=== PATIENT | male | born 1970 | race Two or more races ===

== ENCOUNTER 2023-04-14 13:21 | Emergency (ER) | payer BC, SELFPAY ==
[2023-04-14] VITALS (16 sets, daily range): BP systolic 127–149; BP diastolic 71–100; PULSE 97–109; RESP 7–27; TEMP 36.7; O2SAT 94–98; BMI 27.8
[2023-04-14 13:35] LABS: Glucometer 183 mg/dL (74-106)
--- NOTE | 2023-04-14 13:50 | ECG_ITS ---
The [facility] Test Date: 2023-04-14 Pat Name: FLORENCIA COFFEY Department: Room: - Gender: Male [employer]: : 1970 Requested By: [id number] Order Number: [id number] Reading MD: NORBERT RICHARDSON Measurements Intervals [place] Rate: 105 P: 0 SD: 138 QRS: 26 QRSD: 76 T: 60 QT: 316 QTc: 377 Interpretive Statements 1120 Sinus tachycardia 9140 abnormal rhythm ECG Compared to ECG 04/14/2023 13:50:47 No significant changes Electronically Signed On 04-15-2023 7:12:35 EST by NORBERT RICHARDSON
--- NOTE | 2023-04-14 14:28 | ED_ITS ---
HPI - General Adult General Chief complaint: Weakness Stated complaint: BACK PAIN/ GENERAL WEAKNESS Time Seen by Provider: 04/14/23 13:46 Source: patient Mode of arrival: walk-in Limitations: no limitations History of Present Illness HPI narrative: patient's here complaining of pain in his mid thoracic area. He said when he got up to drive to work included a he notes a little bit of aching in that area. While he was driving he got what he calls a dry [place] type feeling a little bit of aching in his jaw. He does have diabetes. He does not have any shortness of breath. He has no palpitations. He does not have any aching in his shoulders and no discomfort in his anterior chest at all. The pain is in the mid thoracic area. He has not had previous back surgery. Symptoms started his morning and he presents to the emergency room approximately 2:00 PM.diet previous cardiac events arrhythmias myocardial infarction or history of coronary artery disease. Related Data Allergies Allergy/AdvReac Type Severity Reaction Status Date / Time No Known Drug Allergies Allergy Verified 04/14/23 13:23 [facility] Social History Smoking status: Never smoker Exam Narrative Exam Narrative: very pleasant awake alert normal cognition and mental status. Vital signs were noted. He moves about comfortably and does not appear to be in any distress. Skin is warm and dry there is no evidence of tissue ischemia to the trunk torso or his limbs. Examination of his back there is no gross kyphoscoliosis. His pain is in the mid thoracic area in the midline not much in the parathoracic musculature. There is no skin lesions abscesses or soft tissue swelling. On auscultation of his lungs are completely clear with no wheezes rales or rhonchi. Heart sounds are normal with no gallop rub or murmur. On range of motion testing he with twisting of his upper torso he does have some reproducible discomfort in the area that he complains of pain. Peripherally no evidence of tissue hypoperfusion. Constitutional Vital Signs, click to edit/add: Last Vital Signs Temp 98.0 F 04/14/23 13:23 Pulse 108 H 04/14/23 13:23 Resp 18 04/14/23 13:23 BP 148/92 H 04/14/23 13:23 Pulse Ox 98 04/14/23 13:23 O2 Del Method Room Air 04/14/23 13:23 Course Vital Signs Vital signs: Vital Signs Temperature 98.0 F 04/14/23 13:23 Pulse Rate 108 H 04/14/23 13:23 Respiratory Rate 18 04/14/23 13:23 Blood Pressure 148/92 H 04/14/23 13:23 Pulse Oximetry 98 04/14/23 13:23 Oxygen Delivery Method Room Air 04/14/23 13:23 Temperature 98.0 F 04/14/23 13:23 Pulse Rate 108 H 04/14/23 13:23 Respiratory Rate 18 04/14/23 13:23 Blood Pressure 148/92 H 04/14/23 13:23 Pulse Oximetry 98 04/14/23 13:23 Oxygen Delivery Method Room Air 04/14/23 13:23 Medical Decision Making MDM Narrative Medical decision making narrative: patient's chest x-ray does not show any widening in the mediastinum or abnormalities. The laboratory testing was benign with negative troponin. His. Minor elevation of his to liver function tests but his alkaline phosphatase and total bilirubin are normal. Again he denies any abdominal discomfort so I don't think this is biliary obstruction. There is no indication he has aneurysm type symptomatology. EKG and cardiac troponin negative. I'd like and follow up with his primary care doctor but I don't believe there is number emergency medical condition today Lab Data Labs: Lab Results 04/14/23 Range/Units 13:31 POC Glucose 183 H (74-106) mg/dL Discharge Plan Discharge Chief Complaint: Weakness Clinical Impression: Acute midline thoracic back pain Patient Disposition: Home, Self-Care Time of Disposition Decision: 15:49 Additional Instructions: if symptoms don't improve follow-up to primary care doctor to consider further diagnostic testing. Stand Alone Forms: Portal Instructions Referrals: SAEID CHAIDEZ [Primary Care Provider] - 1 week
--- NOTE | 2023-04-14 14:30 | XR_ITS ---
The [address] [address] Patient Name: FLORENCIA COFFEY MRN: [id number] date: 1970 Sex: M Assigned Patient Location: ER Current Patient Location: ER Accession/Order Number: [id number] Exam Date: 04/14/2023 14:40 Report Date: 04/14/2023 15:06 At the request of: MAO SHEETS Procedure: XR chest 2V EXAMINATION: XR chest 2V HISTORY: pain , back pain with deep inspiration, nausea COMPARISON: XR chest 08/11/2022 FINDINGS: LUNGS: No significant pulmonary parenchymal abnormalities. VASCULATURE: No increased pulmonary vasculature. PLEURA: No pneumothorax, effusion, or pleural thickening. CARDIAC: No cardiomegaly or cardiac silhouette abnormality. MEDIASTINUM: No visible mass or adenopathy. BONES: No fracture or visible bone lesion. OTHER: Negative. XR/XR chest 2V IMPRESSION: 1. No acute or suspicious findings to account for patient's symptoms. Electronically authenticated by: RIVERA LARRY Date: 04/14/2023 15:06
[2023-04-14 14:36] LABS: Basophils Percent Auto 0.4 % (0.2-2.0); Eosinophils Absolute Auto 0.1 10^3/uL (0.0-0.7); Eosinophils Percent Auto 1.2 % (0.9-7.0); Hematocrit 55.1 % (42.0-54.0); Hemoglobin 19.9 g/dL (14.0-18.0); Immature Granulocytes Abs Auto 0.04 10^3/uL (0.00-0.03); Immature Granulocytes Pct Auto 0.5 % (0.0-0.5); Lymphocytes Absolute Auto 1.9 10^3/uL (1.2-3.8); Lymphocytes Percent Auto 23.5 % (20.5-60.0); Mean Corpuscular HGB Conc 36.1 g/dL (29.9-35.2); Mean Corpuscular Hemoglobin 29.9 pg (25.9-34.0); Mean Corpuscular Volume 82.7 fL (80.0-94.0); Mean Platelet Volume 10.6 fL (9.5-13.5); Monocytes Absolute Auto 0.5 10^3/uL (0.3-0.8); Monocytes Percent Auto 6.1 % (1.7-12.0); Neutrophils Absolute Auto 5.6 10^3/uL (1.4-6.5); Neutrophils Percent Auto 68.3 % (43.0-75.0); Platelet Count 163 10^3/uL (150-450); Red Blood Count 6.66 10^6/uL (4.70-6.10); Red Cell Distribution Width 12.7 % (11.0-15.0); White Blood Count 8.2 10^3/uL (4.0-11.0)
[2023-04-14 15:00] LABS: Alanine Aminotransferase 96 U/L (16-63); Albumin Level 4.3 g/dL (3.4-5.0); Alkaline Phosphatase 82 U/L (46-116); Anion Gap 15.7; Aspartate Amino Transferase 46 U/L (15-37); BUN Creatinine Ratio 13.4; Bilirubin Total 0.7 mg/dL (0.2-1.0); Calcium 9.5 mg/dL (8.5-10.1); Chloride 101 mmol/L (98-107); Estimated GFR (African America >60 (>=60); Estimated GFR (Non-African Ame >60 (>=60); Globulin 4.4 g/dL; Glucose 172 mg/dL (74-106); Potassium 3.7 mmol/L (3.5-5.1); Sodium 139 mmol/L (136-145); Total Protein 8.7 g/dL (6.4-8.2)
== END 2023-04-14 15:57 | disposition home or self-care (01) ==
PROVIDERS: Emergency Provider Emergency Medicine Emergency Medical Services; PCP Family Medicine
DX: M54.6 Pain in thoracic spine (principal); K42.9 Umbilical hernia without obstruction or gangrene; E11.9 Type 2 diabetes mellitus without complications
CPT/HCPCS: 36415; 71046; 80053; 83880; 84484; 85025; 93005; 99284

== ENCOUNTER 2023-11-18 16:10 | Emergency (ER) | payer BC, SELFPAY ==
[2023-11-18 16:19] VITALS: BP 155/99; PULSE 88; TEMP 36.6; O2SAT 97; BMI 32.9
--- NOTE | 2023-11-18 16:28 | XR_ITS ---
The [address] [address] Patient Name: FLORENCIA COFFEY MRN: [id number] date: 1970 Sex: M Assigned Patient Location: ER Current Patient Location: ER Accession/Order Number: [id number] Exam Date: 11/18/2023 16:35 Report Date: 11/18/2023 17:12 At the request of: SHAN CHAUDHARI Procedure: XR ribs LT min 3V w CXR1V Ribs EXAM: XR ribs LT min 3V w CXR1V HISTORY: Fall COMPARISON: None. TECHNIQUE: Chest, single view. Left rib series with 7 images obtained. FINDINGS: Lungs/pleura: No consolidation, effusion, or pneumothorax. Bones: No acute abnormality identified. XR/XR ribs LT min 3V w CXR1V IMPRESSION: No acute displaced rib fracture. No acute process. Electronically authenticated by: LAST GARNICA Date: 11/18/2023 17:12
--- NOTE | 2023-11-18 16:28 | ED_ITS ---
HPI HPI - General Adult General Chief complaint: Fall Stated complaint: RIB PAIN Time Seen by Provider: 11/18/23 16:18 Source: patient Mode of arrival: walk-in History of Present Illness HPI narrative: Patient is a 52-year-old male who presents to the emergency department for an injury 3 days ago. He states he slept and fell on his left posterior ribs. He complains of continued pain to the area. He is not anticoagulated. He denies any injury to the head and has no persistent neck, low back pain. He is ambulatory and drove himself to the ER. He states he takes Percocet at home daily. He is concerned by the persistent pain and wanted to be evaluated for x- rays. Related Data Previous Rx's ?Medication ?Instructions ?Recorded ketorolac 10 mg tablet 10 mg PO TID PRN pain #10 tabs 11/18/23 methocarbamol 750 mg tablet 750 mg PO TID PRN pain #20 tabs 11/18/23 Allergies Allergy/AdvReac Type Severity Reaction Status Date / Time No Known Drug Allergies Allergy Verified 04/14/23 13:23 Opioid HPI Opioid Management Most Recent Opioid Data: Last Pain Scale 5 11/18/23 16:41 Review of Systems ROS Constitutional Denies: fever or chills Ears, nose, mouth, and throat Denies: throat pain or nasal congestion Respiratory Reports: pain on inspiration; Denies: shortness of breath Gastrointestinal Denies: nausea or vomiting Musculoskeletal Reports: back pain; Denies: neck pain Integumentary/Breast Denies: rash Hematologic/Lymphatic Denies: easy bruising or easy bleeding PFSH PFSH Social History Smoking status: Never smoker Exam Narrative Exam Narrative: Gen.: Awake, alert, in no distress Head: Normocephalic, atraumatic ENT: Moist mucous membranes Respiratory: No respiratory distress, lungs clear bilaterally; No ecchymosis, flail chest or bony point tenderness noted. Diffuse mild tenderness of the left posterior ribs inferiorly Cardio: Regular rate and rhythm Gastrointestinal: Abdomen is soft, nondistended and nontender to palpation Extremities: Moves extremities equally Psych: Normal mood and affect Neuro: No focal neuro deficit Skin: Warm, dry, intact Constitutional Vital Signs, click to edit/add: Last Vital Signs Temp 98 F 11/18/23 16:19 Pulse 88 11/18/23 16:19 Resp 18 11/18/23 16:19 BP 155/99 H 11/18/23 16:19 Pulse Ox 97 11/18/23 16:19 O2 Del Method Room Air 11/18/23 16:19 Course Vital Signs Vital signs: Vital Signs Temperature 98 F 11/18/23 16:19 Pulse Rate 88 11/18/23 16:19 Respiratory Rate 18 11/18/23 16:19 Blood Pressure 155/99 H 11/18/23 16:19 Pulse Oximetry 97 11/18/23 16:19 Oxygen Delivery Method Room Air 11/18/23 16:19 Temperature 98 F 11/18/23 16:19 Pulse Rate 88 11/18/23 16:19 Respiratory Rate 18 11/18/23 16:19 Blood Pressure 155/99 H 11/18/23 16:19 Pulse Oximetry 97 11/18/23 16:19 Oxygen Delivery Method Room Air 11/18/23 16:19 Medical Decision Making MDM Narrative Medical decision making narrative: X-rays of the ribs with no evidence of lung or rib abnormality. Patient treated with Toradol in the ER. He was given NSAIDs and muscle relaxant for home. Follow-up with PCP. He is hemodynamically stable with no respiratory distress at discharge. Follow-up PCP and return to the ER if symptoms change or worsen SHARED APC VISIT, PHYSICIAN ATTESTATION: [id number] I performed a substantive part of the MDM during the patient?s E/M visit. I personally evaluated and examined the patient. I personally made or approved the documented management plan and acknowledge its risk of complications. Medical Records Medical records reviewed: Yes I reviewed the patient's medical records Imaging Data Chest x-ray: Attestation: I have reviewed the pertinent imaging results. Radiologist's impression: ITS Impressions Ribs X-Ray 11/18/23 16:28 IMPRESSION: No acute displaced rib fracture. No acute process. Electronically authenticated by: LAST GARNICA Date: 11/18/2023 17:12 Discharge Plan Discharge Stand Alone Forms: Portal Instructions Chief Complaint: Fall Clinical Impression: Chest wall contusion, Acute chest wall pain Patient Disposition: Home, Self-Care Time of Disposition Decision: 17:23 Condition: Good Prescriptions / Home Meds: New ketorolac 10 mg tablet 10 mg PO TID PRN (Reason: pain) Qty: 10 0RF methocarbamol 750 mg tablet 750 mg PO TID PRN (Reason: pain) Qty: 20 0RF Print Language: Korean Instructions: Chest Wall Pain (ED), Rib Contusion (ED) Referrals: SAEID CHAIDEZ [Primary Care Provider] - 1 week
[2023-11-18] MEDS: KETOROLAC TROMETHAMINE 10 MG TABLET PO (16:33)
[2023-11-18 17:31] VITALS: BP 140/89; PULSE 75; O2SAT 98
== END 2023-11-18 17:33 | disposition home or self-care (01) ==
PROVIDERS: Emergency Provider Emergency Medicine; PCP Family Medicine
DX: S20.212A Contusion of left front wall of thorax, initial encounter (principal); R07.89 Other chest pain; W01.0XXA Fall on same level from slipping, tripping and stumbling without subsequent striking against object, initial encounter
CPT/HCPCS: 71101; 99283

== ENCOUNTER 2024-06-08 20:12 | Emergency (ER) | payer BC, SELFPAY ==
[2024-06-08] VITALS (16 sets, daily range): BP systolic 127–158; BP diastolic 83–108; PULSE 98–118; TEMP 36.8; O2SAT 98; BMI 34.5
--- OUTSIDE RECORDS SUMMARY | 2024-06-08 20:18 | XMS_ITS | CCD ---
Author Organization [facility] Care Team Providers Care Racing Car Driver Name Role Phone DR SAEID PARKER Primary Care Unavailable AUGUSTINA .PARRISH Admitting Unavailable AUGUSTINA ., PARRISH Consulting Unavailable AUGUSTINA Byrnes, PARRISH Attending Unavailable CHRISTIN SEBASTIAN Consulting Unavailable NIKKI MCINTOSH Consulting Unavailable DAYNA WHITMAN Attending Unavailable SAEID PARKER Referring Unavailable SAEID PARKER Primary Care Unavailable DAYNA WHITMAN Attending Unavailable SAEID PARKER Referring Unavailable SAEID PARKER Primary Care Unavailable Saeid Parker MD Primary Care Provider SAEID PARKER Referring Unavailable KAYLYNN SAEID A Primary Care Unavailable MANDI JOHNSON Admitting Unavailable MANDI JOHNSON Attending Unavailable SAEID PARKER A Primary Care Unavailable MANDI JOHNSON Attending Unavailable MANDI JOHNSON Referring Unavailable KAYLYNN, SAEID A Primary Care Unavailable ALBER ESCOBAR Attending Unavailable KAYLYNN SAEID A Primary Care Unavailable SAEID PARKER Referring Unavailable KAYLYNN SAEID A Primary Care Unavailable MANDI JOHNSON Admitting Unavailable MANDI JOHNSON Attending Unavailable KAYLYNN, SAEID A Primary Care Unavailable PARKER, SAEID A Referring Unavailable KAYLYNN SAEID A Primary Care Unavailable Medications Current Medications Medication Drug Class(es) Dates Sig (Normalized) Sig (Original) acetaminophen 325 mg / oxyCODONE hydrochloride 7.5 mg oral tablet (2 sources) Opioid Agonist take 1 tablet by mouth once in the morning oxyCODONE-acetamin ophen (PERCOCET) 7.5-325 mg per tablet Take 1 tablet by mouth in the morning and 1 tablet before bedtime. Active diazePAM 5 mg oral tablet (2 sources) Benzodiazepine take 1 tablet by mouth in the morning, then take 1 tablet by mouth at bedtime diazePAM (VALIUM) 5 mg tablet Take 1 tablet (5 mg total) by mouth in the morning and 1 tablet (5 mg total) before bedtime. Active fexofenadine hydrochloride 180 mg oral tablet (2 sources) Histamine-1 Receptor Antagonist take 1 tablet by mouth in the morning fexofenadine (AMANDO) 180 mg tablet Take 1 tablet (180 mg total) by mouth in the morning. Active fluticasone propionate 0.05 mg/actuat metered dose nasal spray (2 sources) Corticosteroid take 1 spray(s) nasal route in the morning fluticasone propionate (FLONASE) 50 mcg/actuation nasal spray Administer 1 spray into each nostril in the morning. Active gabapentin 300 mg oral capsule (2 sources) Anti-epileptic Agent take 1 capsule by mouth three times daily gabapentin (NEURONTIN) 300 mg capsule Take 1 capsule (300 mg total) by mouth 3 (three) times a day. Active glipiZIDE 5 mg oral tablet (2 sources) Sulfonylurea take 1 tablet by mouth in the morning glipiZIDE (GLUCOTROL) 5 mg tablet Take 1 tablet (5 mg total) by mouth in the morning. Active lisinopril 10 mg oral tablet (2 sources) Angiotensin Converting Enzyme Inhibitor Start: 01-09-2024 take 1 tablet by mouth in the morning lisinopriL (PRINIVIL,ZESTRIL) 10 mg tablet Take 1 tablet (10 mg total) by mouth in the morning. 01/09/2024 Active omeprazole 40 mg delayed release oral capsule (2 sources) Proton Pump Inhibitor take 1 capsule by mouth in the morning omeprazole (PriLOSEC) 40 mg capsule Take 1 capsule (40 mg total) by mouth in the morning. Active promethazine hydrochloride 25 mg rectal suppository (2 sources) Phenothiazine take 25 mg rectal route every six hours as needed for nausea and vomiting promethazine (PHENERGAN) 25 mg suppository Insert 1 suppository (25 mg total) into the rectum every 6 (six) hours as needed for nausea or vomiting. Active semaglutide (OZEMPIC) 0.25 mg or 0.5 mg (2 mg/3 mL) pen injector (2 sources) semaglutide (OZEMPIC) 0.25 mg or 0.5 mg (2 mg/3 mL) pen injector Inject 0.5 mg under the skin every 7 days. tuesdays Active sertraline 50 mg oral tablet (2 sources) Serotonin Reuptake Inhibitor take 1.5 tablets by mouth in the morning sertraline (ZOLOFT) 50 mg tablet Take 1.5 tablets (75 mg total) by mouth in the morning. Active sod sulf-pot chloride-mag sulf 1.479-0.188- 0.225 gram tablet (1 source) Start: 01-29-2024 sod sulf-pot chloride-mag sulf 1.479-0.188- 0.225 gram tablet Indications: Encounter for screening colonoscopy Please see instructional sheet given by physicians office. 24 tablet 01/29/2024 Active tiZANidine 4 mg oral tablet (2 sources) Central alpha-2 Adrenergic Agonist take 1 tablet by mouth every six hours as needed tiZANidine (ZANAFLEX) 4 mg tablet Take 1 tablet (4 mg total) by mouth every 6 (six) hours as needed for muscle spasms. Active zolpidem tartrate 12.5 mg extended release oral tablet (2 sources) gamma-Aminobutyric Acid-ergic Agonist take 1 tablet by mouth once daily as needed for sleep zolpidem CR (AMBIEN CR) 12.5 mg CR tablet Take 1 tablet (12.5 mg total) by mouth nightly as needed for sleep. Active Problems Active Problems Problem Classification Problem Date Documented Da te Episodic/Chronic Diabetes mellitus with complications (1 source) Type 2 diabetes mellitus with hyperglycemia; 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: [Type 2 diabetes mellitus with hyperglycemia] Onset: 05-07-2024 Chronic Diabetes mellitus without complication (1 source) Type 2 diabetes mellitus without complications; 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: [TYPE 2 DM WITHOUT COMPLICATIONS] Onset: 08-13-2022 Chronic Headache; including migraine (4 sources) Headache; including migraine; 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: [HEADACHE UNSPECIFIED] Onset: 08-11-2022 Mood disorders (1 source) Mood disorders; 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: [DEPRESSION UNSPECIFIED] Onset: 08-13-2022 Other aftercare (1 source) 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; 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: [OTH PRISON CURRENT DRUG THERAPY] Onset: 08-13-2022 Episodic Other aftercare (1 source) 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; 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: [CHRONIC MANAGER USE ORAL HYPOGLYCEMIC DX] Onset: 08-13-2022 Episodic Other and unspecified benign neoplasm (1 source) Benign neoplasm of sigmoid colon; 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: [Benign neoplasm of sigmoid colon] Onset: 03-15-2024 Episodic Other connective tissue disease (1 source) Arthrodesis status; 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: [ARTHRODESIS STATUS] Onset: 08-13-2022 Episodic Other lower respiratory disease (1 source) Shortness of breath; 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: [SHORTNESS OF BREATH] Onset: 08-13-2022 Episodic Other screening for suspected conditions (not mental disorders or infectious disease) (3 sources) Encounter for screening for malignant neoplasm of colon; 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: [Encounter for screening for malignant neoplasm of prostate] Onset: 12-02-2023 Episodic Other upper respiratory infections (1 source) Chronic sinusitis, unspecified; 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: [CHRONIC SINUSITIS UNSPECIFIED] Onset: 08-13-2022 Chronic Other upper respiratory infections (1 source) Acute sinusitis, unspecified; 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: [ACUTE SINUSITIS UNSPECIFIED] Onset: 08-13-2022 Episodic Residual codes; unclassified (1 source) Acquired absence of other specified parts of digestive tract; 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: [ACQ ABSENCE OTH PART DIGESTV TRACT] Onset: 08-13-2022 Episodic Unclassified (1 source) CONTACT W/AND (SUSP) EXPOS COVID-19; 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: [CONTACT W/AND (SUSP) EXPOS COVID-19] Onset: 08-13-2022 Unclassified (1 source) Colon Cancer Screening Onset: 12-02-2023 Unclassified (1 source) screening Onset: 12-08-2023 Past or Other Problems Problem Classification Problem Date Documented Da te Episodic/Chronic Other and unspecified benign neoplasm (1 source) Benign neoplasm of transverse colon; 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: [Benign neoplasm of transverse colon] Onset: 12-08-2023 Episodic Results Test Name Value Interpretation Reference Range Facility CBC AND AUTO DIFFon 05-07-20 24 ABSOLUTE BASOPHIL 0.1 X10E9/L Normal 0.0-0.2 [facility] Comment on above: Performed By: #### C BCA, 2857-1, CMP, 70769-2 #### [facility] ([id number]) [address], [address] [place] [address] ABSOLUTE NEUTROPHIL 4.8 X10E9/L Normal 1.5-6.6 [facility] Comment on above: Performed By: #### C BCA, 2857-1, CMP, 83953-1 #### [facility] ([id number]) [address], [address] [place] [address] Basophils/100 WBC (Bld) 0.9 % Normal [facility] Comment on above: Performed By: #### C BCA, 2857-1, CMP, 67159-2 #### [facility] ([id number]) [address], [address] [place] [address] Eosinophils (Bld) [#/Vol] 0.3 10*3/uL Normal 0.0-0.4 [facility] Comment on above: Performed By: #### C BCA, 2857-1, CMP, 83135-3 #### [facility] ([id number]) [address], [address] [place] [address] Eosinophils/100 WBC (Bld) 3.6 % Normal [facility] Comment on above: Performed By: #### Maggie BCA, 2857-1, CMP, 76710-5 #### [facility] ([id number]) [address], [address] [place] [address] Erythrocyte distribution width (RBC) [Ratio] 13.3 % Normal 11.5-15.0 [facility] Comment on above: Performed By: #### Maggie BCA, 2857-1, CMP, 75651-6 #### [facility] ([id number]) [address], [address] [place] [address] Hematocrit (Bld) [Volume fraction] 51.4 % High 39-49 [facility] Comment on above: Performed By: #### C BCA, 2857-1, CMP, 96152-8 #### [facility] ([id number]) [address], [address] [place] [address] Hemoglobin (Bld) [Mass/Vol] 18.1 g/dL High 13.0-17.0 [facility] Comment on above: Performed By: #### C BCA, 2857-1, CMP, 09174-6 #### [facility] ([id number]) [address], [address] [place] [address] Lymphocytes (Bld) [#/Vol] 2.3 10*3/uL Normal 1.0-3.5 [facility] Comment on above: Performed By: #### C MICHAEL, 2857-1, CMP, 09710-7 #### [facility] ([id number]) [address], [address] [place] [address] Lymphocytes/100 WBC (Bld) 29.1 % Normal [facility] Comment on above: Performed By: #### Maggie RODRIGUEZ, 2857-1, CMP, 30379-6 #### [facility] ([id number]) [address], [address] [place] [address] MCH (RBC) [Entitic mass] 29.8 pg Normal 27-34 [facility] Comment on above: Performed By: #### Maggie RODRIGUEZ, 2857-1, CMP, 15171-8 #### [facility] ([id number]) [address], [address] [place] [address] MCHC (RBC) [Mass/Vol] 35.3 g/dL Normal 32-36 [facility] Comment on above: Performed By: #### C BCA, 2857-1, CMP, 10912-9 #### [facility] ([id number]) [address], [address] [place] [address] MCV (RBC) [Entitic vol] 85 fL Normal 80-100 [facility] Comment on above: Performed By: #### Maggie BCA, 2857-1, CMP, 15006-3 #### [facility] ([id number]) [address], [address] [place] [address] Monocytes (Bld) [#/Vol] 0.4 10*3/uL Normal 0-0.9 [facility] Comment on above: Performed By: #### Maggie BCA, 2857-1, CMP, 51911-0 #### [facility] ([id number]) [address], [address] [place] [address] Monocytes/100 WBC (Bld) 4.9 % Normal [facility] Comment on above: Performed By: #### Maggie BCA, 2857-1, CMP, 96706-2 #### [facility] ([id number]) [address], [address] [place] [address] Neutrophils/100 WBC (Bld) 61.5 % Normal [facility] Comment on above: Performed By: #### Maggie BCA, 2857-1, CMP, 27844-4 #### [facility] ([id number]) [address], [address] [place] [address] Platelet mean volume (Bld) [Entitic vol] 8.6 fL Normal 7-12 [facility] Comment on above: Performed By: #### Maggie BCA, 2857-1, CMP, 83330-6 #### [facility] ([id number]) [address], [address] [place] [address] Platelets (Bld) [#/Vol] 230 10*3/uL Normal 150-450 [facility] Comment on above: Performed By: #### Maggie BCA, 2857-1, CMP, 23729-1 #### [facility] ([id number]) [address], [address] [place] [address] RBC COUNT 6.08 X10E12/L High 4.10-5.70 [facility] Comment on above: Performed By: #### Maggie BCA, 2857-1, CMP, 68145-9 #### [facility] ([id number]) [address], [address] [place] [address] WBC (Bld) [#/Vol] 7.8 10*3/uL Normal 4.0-11.0 [facility] Comment on above: Performed By: #### C BCA, 2857-1, CMP, 90044-9 #### [facility] ([id number]) [address], [address] [place] [address] COMPREHENSIVE METABOLIC PANE Dc 05-07-2024 Albumin [Mass/Vol] 4.2 g/dL Normal 3.2-5.3 [facility] Comment on above: Performed By: #### C BCA, 2857-1, CMP, 36101-6 #### [facility] ([id number]) [address], [address] [place] [address] ALP [Catalytic activity/Vol] 66 U/L Normal 39-130 [facility] Comment on above: Performed By: #### C BCA, 2857-1, CMP, 09692-5 #### [facility] ([id number]) [address], [address] [place] [address] ALT [Catalytic activity/Vol] 68 U/L High 0-40 [facility] Comment on above: Performed By: #### C BCA, 2857-1, CMP, 81923-7 #### [facility] ([id number]) [address], [address] [place] [address] Anion gap [Moles/Vol] 10 mmol/L Normal 5-15 [facility] Comment on above: Performed By: #### C BCA, 2857-1, CMP, 91478-0 #### [facility] ([id number]) [address], [address] [place] [address] AST [Catalytic activity/Vol] 36 U/L Normal 0-41 [facility] Comment on above: Performed By: #### C BCA, 2857-1, CMP, 78509-0 #### [facility] ([id number]) [address], [address] [place] [address] Bilirubin [Mass/Vol] 0.7 mg/dL Normal 0.3-1.2 [facility] Comment on above: Performed By: #### C BCA, 2857-1, CMP, 48748-2 #### [facility] ([id number]) [address], [address] [place] [address] Calcium [Mass/Vol] 9.4 mg/dL Normal 8.5-10.5 [facility] Comment on above: Performed By: #### C BCA, 2857-1, CMP, 20222-4 #### [facility] ([id number]) [address], [address] [place] [address] Chloride [Moles/Vol] 103 mmol/L Normal 98-109 [facility] Comment on above: Performed By: #### C BCA, 2857-1, CMP, 41267-1 #### [facility] ([id number]) [address], [address] [place] [address] CO2 [Moles/Vol] 27 mmol/L Normal 22-32 [facility] Comment on above: Performed By: #### C BCA, 2857-1, CMP, 67300-9 #### [facility] ([id number]) [address], [address] [place] [address] Creatinine [Mass/Vol] 0.76 mg/dL Normal 0.60-1.30 [facility] Comment on above: Result Comment: METH OD TRACEABLE TO IDMS STANDARD Performed By: #### C BCA, 2857-1, CMP, 29304-9 #### [facility] ([id number]) [address], [address] [place] [address] eGFR (CKD-EPI) NON-RACE DEPENDENT >90 Normal >59 [facility] Comment on above: Result Comment: Reported eGFR is based on the CKD-EPI 2020 equation that does not use a race coefficient. Performed By: #### C BCA, 2857-1, CMP, 28229-6 #### [facility] ([id number]) [address], [address] [place] [address] Glucose [Mass/Vol] 140 mg/dL High 65-99 [facility] Comment on above: Performed By: #### C BCA, 2857-1, CMP, 39367-7 #### [facility] ([id number]) [address], [address] [place] [address] Potassium [Moles/Vol] 3.8 mmol/L Normal 3.5-5.0 [facility] Comment on above: Performed By: #### C BCA, 2857-1, CMP, 96793-6 #### [facility] ([id number]) [address], [address] [place] [address] Protein [Mass/Vol] 7.2 g/dL Normal 6.0-8.0 [facility] Comment on above: Performed By: #### C BCA, 2857-1, CMP, 06246-9 #### [facility] ([id number]) [address], [address] [place] [address] Sodium [Moles/Vol] 140 mmol/L Normal 134-146 [facility] Comment on above: Performed By: #### C BCA, 2857-1, CMP, 21367-3 #### [facility] ([id number]) [address], [address] [place] [address] Urea nitrogen [Mass/Vol] 10 mg/dL Normal 5-23 [facility] Comment on above: Performed By: #### C BCA, 2857-1, CMP, 89278-8 #### [facility] ([id number]) [address], [address] [place] [address] Lipid 1996 panelon 4 Cholesterol [Mass/Vol] 163 mg/dL Normal 150-200 [facility] Comment on above: Performed By: #### Maggie RODRIGUEZ, 2857-1, CMP, 83106-1 #### [facility] ([id number]) [address], [address] [place] [address] Cholesterol in HDL [Mass/Vol] 32 mg/dL Low >39 [facility] Comment on above: Result Comment: HDL <40 mg/dL - High Risk HDL > or = 40mg/dL- Desirable HDL >60 mg/dL - Negative Risk Performed By: #### Maggie RODRIGUEZ, 2857-1, CMP, 89870-8 #### [facility] ([id number]) [address], [address] [place] [address] Cholesterol in LDL [Mass/Vol] 91 mg/dL Normal <130 [facility] Comment on above: Result Comment: LDL <100 mg/dL - Desirable LDL >160 mg/dL - High Risk Performed By: #### Maggie BCA, 2857-1, CMP, 09978-8 #### [facility] ([id number]) [address], [address] [place] [address] Cholesterol in VLDL [Mass/Vol] 40 mg/dL High 0-30 [facility] Comment on above: Performed By: #### Maggie BCA, 2857-1, CMP, 89899-9 #### [facility] ([id number]) [address], [address] [place] [address] CHOLESTEROL:HDL 5.1 High 1.0-5.0 [facility] Comment on above: Performed By: ###Ray Serrano BCA, 2857-1, CMP, 04667-0 #### [facility] ([id number]) [address], [address] [place] [address] Triglyceride [Mass/Vol] 199 mg/dL High 27-150 [facility] Comment on above: Performed By: #### C BCA, 2857-1, CMP, 17147-5 #### [facility] ([id number]) [address], [address] [place] [address] MICROALBUMIN - ALBUMIN:CREAT ININE URINE RATIOon 05-07-2024 ALB/CREAT RATIO 6.8 mg/g creat Normal 0.0-30.0 [facility] Comment on above: Performed By: #### M ALBU #### [facility] ([id number]) [address], [address] [place] [address] Albumin DL <= 20 mg/L (U) [Mass/Vol] 1.4 mg/dL Normal 0.0-1.9 [facility] Comment on above: Performed By: #### M ALBU #### [facility] ([id number]) [address], [address] [place] [address] URINE CREAT 206.05 mg/dL Normal [facility] Comment on above: Performed By: #### M ALBU #### [facility] ([id number]) [address], [address] [place] [address] Prostate specific Ag [Mass/V ol]on 05-07-2024 PSA SCREEN 2.26 ng/mL Normal 0.00-4.00 [facility] Comment on above: Result Comment: The method used for this test is Leon [place] DXI chemiluminescent immunoassay. Values obtained by different assay methods cannot be used interchangeably. Performed By: #### C BCA, 2857-1, CMP, 67856-4 #### [facility] ([id number]) [address], [address] [place] [address] Surgical Pathologyon 024 Surgical Pathology Normal [facility] Comment on above: Result Comment: [facility] [address] [place] [address] Surgical Pathology Consultation Patient Name:BERTA COFFEY:1970 (Age: 53)Gender:MTaken:4Reported:03/18/2024hysician(s):Mandi Johnson D.O. ([phone])Copy To: Rec. #:[id number]: #[id number] Final Pathologic Diagnosis Distal sigmoid colon polyp, biopsy: Tubular adenoma. Report Electronically Signed Out nxk/03/18/2024Ranjith Lopez MD Interpretation performed at [facility], [address] [place] [address], License number: [id number]. Clinical History Screening. 1. Cold snared a polyp in the distal sigmoid colon. Gross Description Received in formalin labeled ALEXX, distal sigmoid polyp is a pale-abdalla delicate soft tissue bit, 0.5 cm in greatest dimension. The specimen is filtered and submitted the single cassette. (1,ns,[id number], m4) TB tgb/03/16/2024GR Specimen(s) Received Distal sigmoid colon polyp Fee Codes(s): 1; 35868 Surgical Pathologyon 024 Surgical Pathology Normal [facility] Comment on above: Result Comment: [facility] [address] [place] [address] Surgical Pathology Consultation Patient Name:BERTA COFFEY:1970 (Age: 53)Gender:MTaken:12/08/2023eported:12/10/2023hysician(s):Mandi Johnson D.O. ([phone])Copy To: Rec. #:[id number]: #[id number] Final Pathologic Diagnosis Transverse colon, polypectomy: Tubular adenoma. Report Electronically Signed Out rg/12/10/2023husam Peng MD Interpretation performed at [facility], [address] [place] [address], License number: [id number]. Clinical History Screening. Gross Description Received in formalin labeled ALEXX, transverse is a pale-abdalla delicate soft tissue fragment, 0.5 cm in greatest dimension. The specimens are filtered and submitted in a single cassette. (1,ns,[id number], m4) TB tgb/12/09/2023O Specimen(s) Received Transverse colon biopsy Fee Codes(s): 1; 23902 ACETONE SERUMon 08-11-2022 ACETONE Negative Normal NEGATIVE [facility] Comment on above: Performed By: #### A CETON #### [facility] [address] [address] [address] Kirsten Harding BNPon 08-11-2022 Natriuretic peptide B (Bld) [Mass/Vol] 15.0 pg/mL Normal <=900.0 [facility] Comment on above: Performed By: #### C MP, BNP, CMADM #### [facility] [address] [address] [address] Kirsten Harding CARDIAC VERITO ADMITon 023 CK [Catalytic activity/Vol] 124 U/L Normal 39-308 [facility] Comment on above: Performed By: #### C MP, BNP, CMADM ####[facility] [address] [address]Dr. Kirsten Harding CK.MB [Mass/Vol] 1.12 ng/mL Normal <=3.60 [facility] Comment on above: Performed By: #### C MP, BNP, CMADM ####[facility] [address] [address]Dr[address] Kirsten Harding HSTROP 5.0 pg/mL Normal 4.0-76.1 [facility] Comment on above: Result Comment: CUT- OFF POINTS HAVE BEEN ESTABLISHED BASED ON THE FOURTH UNIVERSAL DEFINITIONS OF MYOCARDIAL INFARCTION. THE UPPER REFERENCE LIMIT (URL) OF TROPONIN, DEFINED THE 99TH PERCENTILE OF cTnI DISTRIBUTION IN A REFERENCE POPULATION, HAS BEEN CONFIRMED THE DECISION THRESHOLD FOR TX DIAGNOSIS. Performed By: #### C MP, BNP, CMADM ####[facility] [address] [address]Dr. Kirsten Harding CHRISTEL 28 ng/mL Normal 16-96 [facility] Comment on above: Performed By: #### C MP, BNP, CMADM ####[facility] [address] [place], [place] [address]DxDr. Kirsten Harding CBC AUTO DIFFon 08-11-2022 BASO # 0.1 103/ul Normal 0.0-0.1 [facility] Comment on above: Performed By: #### C BC #### [facility] [address] [address] [address] Kirsten Harding Basophils/100 WBC (Bld) 0.6 % Normal 0.2-2.0 [facility] Comment on above: Performed By: #### C BC #### [facility] [address] [address] [address] Kirsten Harding EO # 0.3 103/ul Normal 0.0-0.7 [facility] Comment on above: Performed By: #### C BC #### [facility] [address] [address] [address] Kirsten Harding Eosinophils/100 WBC (Bld) 2.6 % Normal 0.9-7.0 [facility] Comment on above: Performed By: #### C BC #### [facility] [address] [address] [address] Kirsten Harding Erythrocyte distribution width (RBC) [Ratio] 12.4 % Normal 11.0-15.0 [facility] Comment on above: Performed By: #### C BC #### [facility] [address] [address] [address] iKrsten Harding Hematocrit (Bld) [Volume fraction] 50.7 % Normal 42.0-54.0 [facility] Comment on above: Performed By: #### C BC #### [facility] [address] [address] [address] Kirsten Harding Hemoglobin (Bld) [Mass/Vol] 18.6 g/dL Critically high 14.0-18.0 [facility] Comment on above: Performed By: #### C BC #### [facility] [address] [address] [address] Kirsten Harding IG # 0.05 10e3/ul Critically high 0.00-0.03 [facility] Comment on above: Performed By: #### C BC #### [facility] [address] [address] [address] Kirsten Harding IG % 0.5 % Normal 0.0-0.5 [facility] Comment on above: Performed By: #### C BC #### [facility] [address] [place] [address] Dr. Kirsten Harding LYMPH # 3.5 103/ul Normal 1.2-3.8 [facility] [facility] Comment on above: Performed By: #### C BC #### [facility] [address] [place] [address] Dr. Kirsten Harding Lymphocytes/100 WBC (Bld) 33.7 % Normal 20.5-60.0 [facility] Comment on above: Performed By: #### C BC #### [facility] [address] [place] [address] Dr. Kirsten Harding MANUAL DIFF REQ NO Normal [facility] Comment on above: Performed By: #### C BC #### [facility] [address] [place] [address] Dr. Kirsten Harding MCH (RBC) [Entitic mass] 29.7 pg Normal 25.9-34.0 [facility] Comment on above: Performed By: #### C BC #### [facility] [address] [place] [address] Dr. Kirsten Harding MCHC (RBC) [Mass/Vol] 36.7 g/dL Critically high 29.9-35.2 [facility] Comment on above: Performed By: #### C BC #### [facility] [address] [place] [address] Dr. Kirsten Harding MCV (RBC) [Entitic vol] 81.0 fL Normal 80.0-94.0 [facility] Comment on above: Performed By: #### C BC #### [facility] [address] [address] [address] Kirsten Harding MONO # 0.7 103/ul Normal 0.3-0.8 [facility] Comment on above: Performed By: #### C BC #### [facility] [address] [place] [address] Dr. Kirsten Harding Monocytes/100 WBC (Bld) 6.4 % Normal 1.7-12.0 [facility] Comment on above: Performed By: #### C BC #### [facility] [address] [place] [address] Dr. Kirsten Harding NEUT # 5.8 103/ul Normal 1.4-6.5 [facility] Comment on above: Performed By: #### C BC #### [facility] [address] [place] [address] Dr. Kirsten Harding Neutrophils/100 WBC (Bld) 56.2 % Normal 43.0-75.0 [facility] Comment on above: Performed By: #### C BC #### [facility] [address] [place] [address] Dr. Kirsten Harding Platelet mean volume (Bld) [Entitic vol] 10.4 fL Normal 9.5-13.5 [facility] Comment on above: Performed By: #### C BC #### [facility] [address] [place] [address] Dr. Kirsten Harding PLT 184 103/ul Normal 150-450 [facility] Comment on above: Performed By: #### C BC #### [facility] [address] [place] [address] Dr. Kirsten Harding RBC 6.26 106/ul Critically high 4.70-6.10 [facility] Comment on above: Performed By: #### C BC #### [facility] [address] [place] [address] Dr. Kirsten Harding WBC 10.3 103/ul Normal 4.0-11.0 [facility] Comment on above: Performed By: #### C BC #### [facility] [address] [place] [address] STROKE HEAD WOon 03-26-[address] STROKE HEAD WO EXAM: CT STROKE HEAD WO CLINICAL INDICATION: Headache COMPARISON: None TECHNIQUE: Axial CT images of the brain were obtained without contrast. Dose reduction techniques were achieved by using automated exposure control and/or adjustment of mA and/or kV according to patient size and/or use of iterative reconstruction technique. FINDINGS: Brain parenchyma: No mass effect or midline shift is seen. Kam-white differentiation is maintained. No findings suspicious for intracranial hemorrhage. No findings suggesting acute stroke. Periventricular hypoattenuation / patchy white matter hypodensities are statistically most often related to small vessel ischemic disease. Ventricles and extra-axial spaces: Ventricles are concordant with sulci. No findings suggesting hydrocephalus. Visualized paranasal sinuses: Air-fluid level noted within the left maxillary sinus. Mastoid air cells: Clear. Included portions of the orbits:Included portions of the orbits with no evidence of fracture or other acute pathology. Bones: No fracture is seen. Impression: 1. No acute intracranial process visualized. 2. Acute left maxillary sinusitis. No findings suspicious for acute stroke by noncontrast head CT. If there is high suspicion for acute intracranial pathology, please note that magnetic resonance imaging or other additional evaluation may be more sensitive than noncontrast head CT. Findings were relayed to Dr. Silva over telephone by Dr. Sebastian at 1:40 AM on 08/11/2022. Electronically authenticated by: CHRISTIN SEBASTIAN Date: 2022-08-11 01:40 Normal [facility] CTA NECK WO W CONon 08-12-19 23 CTA NECK WO W CON EXAMINATION: CTA NEC K WO W CON, CTA HEAD WO W CON CLINICAL INDICATION: Dyspnea, headache. TECHNIQUE: CT angiography of the head and neck was then performed following intravenous administration of 75 cc of Omnipaque 350 injected at a rate of 5 cc/sec. Multiple MIP images in axial, coronal, and sagittal planes and 3D surfaced rendered images were then acquired using the source data. Automated dose lowering techniques and/or adjustment according to patient size were utilized for this examination. COMPARISON: CT head 08/11/2022. FINDINGS: CTA: CTA Head: There is no evidence for flow-limiting stenosis within the intracranial portions of the bilateral ICAs. There is no evidence for a large vessel occlusion. No evidence for flow-limiting stenosis within the major intracranial vessels. No evidence for major branch occlusion, aneurysm or dissection. CTA NECK: No evidence for flow-limiting stenosis along the origins of the great vessels. The bilateral common, internal and external carotid arteries are patent without evidence for flow-limiting stenosis. The right vertebral artery is dominant with mild left vertebral artery hypoplasia. The bilateral vertebral artery origins are patent. No flow-limiting stenosis is visualized along the extracranial course of the vertebral arteries. Dense to suggest pseudoaneurysm or dissection. The imaged lung diane are clear. No suspicious osseous lesion visualized. Mucous retention cysts versus polyps within the right maxillary sinus with mucosal thickening along the left maxillary sinus and an air-fluid level visualized. IMPRESSION: 1. No evidence for large vessel occlusion, flow-limiting stenosis, aneurysm or dissection within the intracranial vessels. 2. No measurable stenosis of the extracranial carotid and vertebral arteries. 3. Acute on chronic sinus disease. Assessment of stenosis of the internal carotid arteries is based on NASCET criteria. Electronically authenticated by: CHRISTIN SEBASTIAN Date: 2022-08-11 02:45 Normal [facility] CULTURE BLOODon 08-11-2022 Microscopic examination of blood, culture Culture Observations: NO GROWTH AT 5 DAYS. Normal [facility] Comment on above: Performed By: #### B LDCX2 ####[facility] [address] [id number] Kirsten Harding Microscopic examination of blood, culture Culture Observations: NO GROWTH AT 5 DAYS. Normal [facility] Comment on above: Performed By: #### B LDCX1 ####[facility] [address] [id number]. Kirsten Harding Covid-19 PCR (CVDTB)on 07-18 SARS-CoV-2 (COVID-19) RNA ANGELA+probe Ql (Unsp spec) Not detected Normal NOT DETECTED [facility] Comment on above: Result Comment: When diagnostic testing is negative, the possibility of a false negative should be considered in the context of a patient's recent exposures and the presence of clinical signs and symptoms consistent with SARS-CoV-2. This test is not yet approved or cleared by the [place] FDA. When there are no FDA-approved or cleared tests available, and other criteria are met, FDA can make tests available under an emergency access mechanism called an Emergency Use Authorization (EUA). The EUA for this test is supported by the Credit Compliance Officer of Health and Human Service's declaration that circumstances exist to justify the emergency use of in vitro diagnostics for the detection and/or diagnosis of the virus that causes COVID-19. This EUA will remain in effect for the duration of the COVID-19 declaration justifying emergency of IVDs, unless it is terminated or revoked by the FDA (after which the test may no longer be used). Performed By: #### C VDTBH #### [facility] [address] [address] [address] Kirsten Harding LACTATE/LACTIC ACIDon 2022 Lactate [Moles/Vol] 1.4 mmol/L Normal 0.4-2.0 [facility] Comment on above: Performed By: #### L ACT #### [facility] [address] [address] [address] Kirsten Harding Lactate [Moles/Vol] 5.2 mmol/L Critically high 0.4-2.0 [facility] Comment on above: Performed By: #### L ACT ####[facility] [address] [address]Dr. Kirsten Harding PH VENOUS BLOODon 08-11-2022 PCO2 VENOUS 33.9 mmHg Critically low 40.0-52.0 [facility] Comment on above: Performed By: #### P HVEN #### [facility] [address] [address] [address] Kirsten Harding pH VENOUS 7.443 Critically high 7.330-7.430 [facility] Comment on above: Performed By: #### P HVEN #### [facility] [address] [address] [address] Kirsten Harding POINT OF CARE GLUCOSEon 07-18 Glucose [Mass/Vol] 203 mg/dL Critically high 74-106 [facility] Comment on above: Performed By: #### P OCGLUC #### [facility] [address] [address] [address] Kirsten Harding PROF 14(COMP METB)on 023 Albumin [Mass/Vol] 3.9 g/dL Normal 3.4-5.0 [facility] Comment on above: Performed By: #### C MP, BNP, CMADM #### [facility] [address] [place] [address] Dr. Kirsten Harding Albumin/Globulin [Mass ratio] 1.1 {ratio} Normal [facility] Comment on above: Performed By: #### C MP, BNP, CMADM #### [facility] [address] [address] [address] Kirsten Harding ALP [Catalytic activity/Vol] 77 U/L Normal 46-116 [facility] Comment on above: Performed By: #### C MP, BNP, CMADM #### [facility] [address] [place] [address] Dr. Kirsten Harding ALT [Catalytic activity/Vol] 54 U/L Normal 16-63 [facility] Comment on above: Performed By: #### C MP, BNP, CMADM #### [facility] [address] [place] [address] Dr. Kirsten Harding Anion gap [Moles/Vol] 18.3 mmol/L Normal [facility] Comment on above: Performed By: #### C MP, BNP, CMADM #### [facility] [address] [place] [address] Dr. Kirsten Harding AST [Catalytic activity/Vol] 28 U/L Normal 15-37 [facility] Comment on above: Performed By: #### C MP, BNP, CMADM #### [facility] [address] [place] [address] Dr. Kirsten Harding Bilirubin [Mass/Vol] 0.4 mg/dL Normal 0.2-1.0 [facility] Comment on above: Performed By: #### C MP, BNP, CMADM #### [facility] [address] [place] [address] Dr. Kirsten Harding Calcium [Mass/Vol] 8.8 mg/dL Normal 8.5-10.1 [facility] Comment on above: Performed By: #### C MP, BNP, CMADM #### [facility] [address] [place] [address] Dr. Kirsten Harding Chloride [Moles/Vol] 103 mmol/L Normal 98-107 [facility] Comment on above: Performed By: #### C MP, BNP, CMADM #### [facility] [address] [address] [address] Kirsten Harding CO2 [Moles/Vol] 19.9 mmol/L Critically low 21.0-32.0 [facility] Comment on above: Performed By: #### C MP, BNP, CMADM #### [facility] [address] [place] [address] Dr. Kirsten Harding Creatinine [Mass/Vol] 0.95 mg/dL Normal 0.70-1.30 [facility] Comment on above: Performed By: #### C MP, BNP, CMADM #### [facility] [address] [place] [address] Dr. Kirsten Harding EGFR-AF ZIMBABWEAN >60 Normal >=60 [facility] Comment on above: Performed By: #### C MP, BNP, CMADM #### [facility] [address] [place] [address] Dr. Kirsten Harding EGFR-NON AF ZIMBABWEAN >60 Normal >=60 [facility] Comment on above: Performed By: #### C MP, BNP, CMADM #### [facility] [address] [place] [address] Dr. Kirsten Harding Globulin (S) [Mass/Vol] 3.5 g/dL Normal [facility] Comment on above: Performed By: #### C MP, BNP, CMADM #### [facility] [address] [place] [address] Dr. Kirsten Harding Glucose [Mass/Vol] 212 mg/dL Critically high 74-106 [facility] Comment on above: Performed By: #### C MP, BNP, CMADM #### [facility] [address] [place] [address] Dr. Kirsten Harding Potassium [Moles/Vol] 3.2 mmol/L Critically low 3.5-5.1 [facility] Comment on above: Performed By: #### C MP, BNP, CMADM #### [facility] [address] [address] [address] Kirsten Harding Protein [Mass/Vol] 7.4 g/dL Normal 6.4-8.2 [facility] Comment on above: Performed By: #### C MP, BNP, CMADM #### [facility] [address] [address] [address] Kirsten Harding Sodium [Moles/Vol] 138 mmol/L Normal 136-145 [facility] Comment on above: Performed By: #### C MP, BNP, CMADM #### [facility] [address] [address] [address] Kirsten Harding Urea nitrogen [Mass/Vol] 11.0 mg/dL Normal 7.0-18.0 [facility] Comment on above: Performed By: #### C MP, BNP, CMADM #### [facility] [address] [address] [address] Kirsten Harding Urea nitrogen/Creatinine [Mass ratio] 11.6 mg/mg Normal [facility] Comment on above: Performed By: #### C MP, BNP, CMADM #### [facility] [address] [address] [address] Kirsten Harding PROTIMEon 08-11-2022 INR Coag (PPP) [Relative time] 0.97 {INR} Normal [facility] Comment on above: Performed By: #### P TT, PT ####[facility] [address] [address]Dr. Kirsten Harding INR GUIDELINES SEE BELOW Normal [facility] Comment on above: Result Comment: JAHAIRA RED INR: 2.0 - 3.0 CONDITIONS NOT LISTED BELOW 2.5 - 3.5 FOR PROSTHETIC HEART VALVE REPLACEMENT 2.5 - 3.5 RECURRENT THROMBOSIS Performed By: #### P TT, PT ####[facility] [address] [address]Dr. Kirsten Harding PT Coag (PPP) [Time] 10.3 s Normal 9.0-11.6 [facility] Comment on above: Performed By: #### P TT, PT ####[facility] [address] [place], [place] [address]Bi. Kirsten Harding PTTon 08-11-2022 aPTT Coag (Bld) [Time] 23.6 s Normal 22.3-36.2 [facility] Comment on above: Performed By: #### P TT, PT ####[facility] [address] [place], [place] [address]Dd. Kirsten Harding XR CHEST 1 Von 08-11-2022 XR CHEST 1 V EXAM: XR CHEST 1 V HISTORY: SHORTNESS OF BREATH COMPARISON: Chest x-ray 03/06/2021. TECHNIQUE: AP portable view of the chest obtained. FINDINGS: Cardiomediastinal silhouette is nonenlarged. Pulmonary vascular markings are within normal limits. There is no focal airspace consolidation, sizable effusion or pneumothorax. The osseous structures are grossly intact. IMPRESSION: No acute cardiopulmonary process identified. Electronically authenticated by: NIKKI MCINTOSH Date: 2022-08-11 03:04 Normal [facility] Vital Signs Date Time Vital Sign Value Performing Clinician Rubi wilkerson 03-09-2024 10:05-0400 Body height 170.2 cm [facility] 03-09-2024 10:05-0400 Body mass index (BMI) [Ratio] 33.52 kg/m2 [facility] 03-09-2024 10:05-0400 Body weight 97.07 kg [facility] Encounters Encounter Date Encounter Type Care Provider Facility Start: 05-07-2024 End: 05-07-2024 ambulatory SAEID Holm [facility] Start: 05-07-2024 Encounter for genera l adult medical examination without abnormal findings [facility] Start: 03-19-2024 End: 03-19-2024 Telephone encounter Elizabeth Mcnally CMA [facility] Start: 03-15-2024 End: 03-15-2024 Evaluation and management of inpatient MANDI JOHNSON [facility] Start: 03-09-2024 End: 03-09-2024 ambulatory [facility] Phone Call Provider 1 [facility] - Pre Admit Start: 01-29-2024 End: 01-29-2024 ambulatory DAYNA Alta [facility] Start: 12-09-2023 End: 12-09-2023 Evaluation and management of inpatient ALBER Titus SHAWN [facility] Start: 12-08-2023 End: 12-09-2023 Evaluation and management of inpatient MANDI JOHNSON [facility] Start: 12-03-2023 End: 12-03-2023 ambulatory SAEID PARKER [facility] Start: 12-02-2023 End: 12-02-2023 ambulatory [facility] Start: 08-11-2022 End: 08-11-[address] SAEID PARKER Facility:H1 Procedures Date Procedure Procedure Detail Performing Clinician Start: 03-15-2024 Colonoscopy Elizabeth jacobo RADIATION THERAPY TECHNICIAN Start: 01-29-2024 Follow-up visit Follow-up DAYNA Alta [facility] Start: 12-08-2023 Colonoscopy [facility] Plan of Treatment Date Care Activity Detail Author Start: 03-15-2029 Screening for malign ant neoplasm of colon Colonoscopy [facility] Start: 12-07-2028 Screening for malign ant neoplasm of colon Colonoscopy [facility] Start: 08-29-2026 DTaP,Tdap and Td Vac cines (2 - Td or Tdap) DTaP,Tdap and Td Vaccines (2 - Td or Tdap) [facility] Start: 03-15-2025 Adult BMI Screening Adult BMI Screen ing [facility] Start: 03-15-2025 Tobacco Screening Tobacco Screening [facility] Start: 02-11-2025 Tobacco Screening Tobacco Screening [facility] Start: 01-28-2025 Adult BMI Screening Adult BMI Screen ing [facility] Start: 03-15-2024 End: 03-15-2024 Admission to same day surgery center 03/15/2024 8:00 AM EDT - 03/15/2024 8:30 AM EDT Surgery [facility] - Surgery [address] [place] [address] Mandi Johnson, DO [address] [place] [address] COLONOSCOPY DIAGNOSTIC / SCREENING [02901 (CPT )] [facility] Comment on above: COLONOSCOPY DIAGNOST IC / SCREENING [85783 (CPT )] Start: 03-15-2024 End: 03-15-2024 Anesthesia consultation 03/15/2024 8:00 AM EDT Anesthesia Event [facility] [address] [place] [address] Brennen Arguello, DO [address] [place] [address] [facility] Start: 03-15-2024 End: 03-15-2024 Colonoscopy flx dx w/collj spec when pfrmd COLONOSCOPY DIAGNOSTIC / SCREENING Screen for colon cancer 03/15/2024 8:00 AM EDT [facility] Start: 03-15-2024 Subsequent hospital visit by physician 03/15/2024 8:00 AM EDT Hospital Encounter [facility] [address] [place] [address] Mandi Johnson, DO [address] [place] [address] [facility] Start: 01-18-2024 Influenza vaccination Influenza Vacc ine [facility] Start: 11-24-2019 Administration of varicella zoster vaccine Zoster (Shingles) Vaccine (1 of 2) [facility] Start: 11-24-1987 Adult BMI Follow Up Plan Adult BMI Follow Up Plan [facility] Start: 1981 [facility] Payers Date Payer Category Payer [employer]aged [employer] - PPO [employer] [id number] 1969 Unknown [id number] 1969 Unknown [id number] [id number]. 2.1286 1969 Unknown [id number] [id number]. 2.6 1969 Unknown [id number] [id number]. 2.1286 1969 Unknown [id number] [id number]. 2.1285 1969 Unknown [id number] [id number]. 2.1286 1969 Unknown [id number] [id number]. 2.1286 1969 Unknown [id number] [id number]. 2.1286 1969 Unknown [id number] [id number]. 2.1286 1969 Unknown [id number] [id number]. 2.1286 1969 Unknown [id number] [id number]. 2.1286 1959 Unknown [id number] Social History Date Type Detail Facility Start: 09-10-2019 Tobacco smoking stat [facility] Never smoked tobacco [facility] Start: 09-10-2019 Tobacco use and exposure Smokeless tobacco non-user [facility] Start: 03-09-2024 End: 03-16-2024 Alcoholic beverage intake Current drinker of alcohol (finding) [facility] Start: 06-29-2020 End: 03-09-2024 History of Social function [facility] Start: 06-29-2020 End: 03-09-2024 Tobacco use panel [facility] Childcare Unknown [facility] Start: 12-02-2023 Alcohol Comment weekends [facility] Start: 1970 Sex assigned at Not on file P [facility] Start: 12-22-2014 Sex Male (finding) [facility] Note 03-19-2024 Telephone Encounter - Elizabeth Mcnally CMA - 03/19/2024 11:50 AM EDTTelephone Encounter - Elizabeth Mcnally CMA - 03/19/2024 11:50 AM EDT Note Date & Type Note Facility 03-19-2024 Miscellaneous Notes Formattin g of this note might be different from the original. ----- Message from Dr. Mandi Johnson DO sent at 03/18/2024 4:31 PM EDT ----- Please let pt. Know that polyp was precancerous but benign and I recommend surveillance scope in 5 years unless problems. Thanks, Dr. Plascencia Spoke with patient regarding pathology results. Patient verbally understood with no further questions. Recall to be put in chart. documented in this encounter [facility] Telephone encounter Note 03-19-2024 Telephone Encounter - Elizabeth Mcnally CMA - 03/19/2024 11:50 AM EDT Note Date & Type Note Facility 03-19-2024 Telephone encounter Note ----- Message from Dr. Mandi Johnson DO sent at 03/18/2024 4:31 PM EDT ----- Please let pt. Know that polyp was precancerous but benign and I recommend surveillance scope in 5 years unless problems. ThanksDr. Plascencia [facility] Telephone encounter Note 03-19-2024 Telephone Encounter - Elizabeth Mcnally CMA - 03/19/2024 11:50 AM EDT Note Date & Type Note Facility 03-19-2024 Telephone encount er Note Spoke with patient regarding pathology results. Patient verbally understood with no further questions. Recall to be put in chart. [facility] Nurse Note 03-09-2024 Perioperative Nursing Note - Valentine Escobedo RN - 03/09/2024 10:09 AM EDT Note Date & Type Note Facility 03-09-2024 Nurse Note Preoperative Education Checklist- General Surgery date: 03/15/24 Surgery time: 8a Arrival time: 610a 1. Bring a photo ID and your insurance card with you the day of surgery. You will check in at the main lobby of the [facility]- registration desk is straight ahead as soon as you walk in. Tell them you are here for surgery. 2. If you have a Living Will/Durable Power of Numerical [employer] Drill Press Operator for Health Care that is not on file here, please bring a copy the day of surgery. 3. Please shower/bathe the night before surgery with the provided soap or wipes. Do not shower the morning of surgery- you will do use wipes when you arrive here at the hospital before getting into your surgical gown. Do not shave the area of your procedure for 2 days prior to your surgery. 4. NO powder, lotion, perfume/cologne, aftershave, make-up, deodorant, or hair products after you have bathed. 5. NO nail hebrew/acrylic on at least one finger. If you are having a hand, wrist or foot surgery then all nail hebrew and artificial/acrylic nails must be removed from that hand or foot. 6. Avoid ALL Aspirin and non-steroidal anti-inflammatory drugs and certain vitamins (Ibuprofen, Advil, Aleve, Excedrin, Meloxicam, Celebrex, fish/krill oil, etc.) for 7 days prior to surgery as instructed by your surgeon and/or your prescribing doctor. Tylenol IS ALLOWED. If you are on Ticlid, Xarelto, Eliquis, Pradaxa, Plavix or Coumadin, please check with your prescribing doctor for instructions for when to stop them. 7. If you use an inhaler, continue to use it routinely. 8. Nothing to eat or drink (not even water, gum, mints, or hard candy!) AFTER midnight prior to your surgery. 9. Take only medications that you are instructed to on the morning of surgery with a TINY SIP OF WATER. 10. Choose a responsible adult that will be able to drive you home when you are discharged from your hospital stay for your surgery and can stay with you in your home for 24 hours after your procedure. You must NOT drive any vehicle or operate any machinery for 24 hours after surgery. 11. When you dress for your appointment, please wear loose fitting clothing that is appropriate to accommodate your surgical area procedure. BRING WITH YOU ANY DEVICES YOU MAY NEED: RACHAEL hose, ice machine, sling/swath, brace or special shoe, oversized zip-up or button up shirt, CPAP machine if staying overnight. 12. Do NOT wear jewelry, watches, or any piercings or metal for surgery- leave these valuables and money at home. 13. Do NOT wear contact lenses for surgery- glasses are okay if needed. 14. The anesthesiologist will talk with you the day of surgery and will ask you to sign a Consent Form. 15. Refrain from smoking or any type of tobacco use for at least 8 hours and marijuana for 24 hours prior to arrival for your surgery. 16. If a GREEN BLOOD band is given to you, please bring it with you for the day of surgery. 17. Notify your surgeon if you develop any illness before your surgery. 18. If you are staying overnight, please DO NOT BRING your home medications with you. 19. If you have any questions prior to surgery, please call the Preadmission Testing office at [phone], Mon.-Fri. 7 a.m.-3 p.m. Leave a voicemail if needed. Pre-Surgery Instructions: Medication Instructions diazePAM (VALIUM) 5 mg tablet Stop taking 0 days prior to procedure oxyCODONE-acetaminophen (PERCOCET) 7.5-325 mg per tablet Stop taking 0 days prior to procedure promethazine (PHENERGAN) 25 mg suppository Stop taking 0 days prior to procedure fexofenadine (AMANDO) 180 mg tablet Stop taking 0 days prior to procedure fluticasone propionate (FLONASE) 50 mcg/actuation nasal spray Stop taking 0 days prior to procedure gabapentin (NEURONTIN) 300 mg capsule Stop taking 0 days prior to procedure glipiZIDE (GLUCOTROL) 5 mg tablet Stop taking 0 days prior to procedure lisinopriL (PRINIVIL,ZESTRIL) 10 mg tablet Stop taking 0 days prior to procedure omeprazole (PriLOSEC) 40 mg capsule Take morning of procedure if needed semaglutide (OZEMPIC) 0.25 mg or 0.5 mg (2 mg/3 mL) pen injector Stop taking 1 week prior to procedure sertraline (ZOLOFT) 50 mg tablet Stop taking 0 days prior to procedure sod sulf-pot chloride-mag sulf 1.479-0.188- 0.225 gram tablet Check with prescribing doctor for instructions tiZANidine (ZANAFLEX) 4 mg tablet Stop taking 0 days prior to procedure zolpidem CR (AMBIEN CR) 12.5 mg CR tablet Stop taking 0 days prior to procedure [facility] Note 03-09-2024 Perioperative Nursing Note - Valentine Escobedo RN - 03/09/2024 10:09 AM EDT Note Date & Type Note Facility 03-09-2024 Miscellaneous Notes Preoperative Education Checklist- General Surgery date: 03/15/24 Surgery time: 8a Arrival time: 610a 1. Bring a photo ID and your insurance card with you the day of surgery. You will check in at the main lobby of the [facility]- registration desk is straight ahead as soon as you walk in. Tell them you are here for surgery. 2. If you have a Living Will/Durable Power of Numerical [employer] Operator for Health Care that is not on file here, please bring a copy the day of surgery. 3. Please shower/bathe the night before surgery with the provided soap or wipes. Do not shower the morning of surgery- you will do use wipes when you arrive here at the hospital before getting into your surgical gown. Do not shave the area of your procedure for 2 days prior to your surgery. 4. NO powder, lotion, perfume/cologne, aftershave, make-up, deodorant, or hair products after you have bathed. 5. NO nail hebrew/acrylic on at least one finger. If you are having a hand, wrist or foot surgery then all nail hebrew and artificial/acrylic nails must be removed from that hand or foot. 6. Avoid ALL Aspirin and non-steroidal anti-inflammatory drugs and certain vitamins (Ibuprofen, Advil, Aleve, Excedrin, Meloxicam, Celebrex, fish/krill oil, etc.) for 7 days prior to surgery as instructed by your surgeon and/or your prescribing doctor. Tylenol IS ALLOWED. If you are on Ticlid, Xarelto, Eliquis, Pradaxa, Plavix or Coumadin, please check with your prescribing doctor for instructions for when to stop them. 7. If you use an inhaler, continue to use it routinely. 8. Nothing to eat or drink (not even water, gum, mints, or hard candy!) AFTER midnight prior to your surgery. 9. Take only medications that you are instructed to on the morning of surgery with a TINY SIP OF WATER. 10. Choose a responsible adult that will be able to drive you home when you are discharged from your hospital stay for your surgery and can stay with you in your home for 24 hours after your procedure. You must NOT drive any vehicle or operate any machinery for 24 hours after surgery. 11. When you dress for your appointment, please wear loose fitting clothing that is appropriate to accommodate your surgical area procedure. BRING WITH YOU ANY DEVICES YOU MAY NEED: RACHAEL hose, ice machine, sling/swath, brace or special shoe, oversized zip-up or button up shirt, CPAP machine if staying overnight. 12. Do NOT wear jewelry, watches, or any piercings or metal for surgery- leave these valuables and money at home. 13. Do NOT wear contact lenses for surgery- glasses are okay if needed. 14. The anesthesiologist will talk with you the day of surgery and will ask you to sign a Consent Form. 15. Refrain from smoking or any type of tobacco use for at least 8 hours and marijuana for 24 hours prior to arrival for your surgery. 16. If a GREEN BLOOD band is given to you, please bring it with you for the day of surgery. 17. Notify your surgeon if you develop any illness before your surgery. 18. If you are staying overnight, please DO NOT BRING your home medications with you. 19. If you have any questions prior to surgery, please call the Preadmission Testing office at [phone], Mon.-Fri. 7 a.m.-3 p.m. Leave a voicemail if needed. Pre-Surgery Instructions: Medication Instructions diazePAM (VALIUM) 5 mg tablet Stop taking 0 days prior to procedure oxyCODONE-acetaminophen (PERCOCET) 7.5-325 mg per tablet Stop taking 0 days prior to procedure promethazine (PHENERGAN) 25 mg suppository Stop taking 0 days prior to procedure fexofenadine (AMANDO) 180 mg tablet Stop taking 0 days prior to procedure fluticasone propionate (FLONASE) 50 mcg/actuation nasal spray Stop taking 0 days prior to procedure gabapentin (NEURONTIN) 300 mg capsule Stop taking 0 days prior to procedure glipiZIDE (GLUCOTROL) 5 mg tablet Stop taking 0 days prior to procedure lisinopriL (PRINIVIL,ZESTRIL) 10 mg tablet Stop taking 0 days prior to procedure omeprazole (PriLOSEC) 40 mg capsule Take morning of procedure if needed semaglutide (OZEMPIC) 0.25 mg or 0.5 mg (2 mg/3 mL) pen injector Stop taking 1 week prior to procedure sertraline (ZOLOFT) 50 mg tablet Stop taking 0 days prior to procedure sod sulf-pot chloride-mag sulf 1.479-0.188- 0.225 gram tablet Check with prescribing doctor for instructions tiZANidine (ZANAFLEX) 4 mg tablet Stop taking 0 days prior to procedure zolpidem CR (AMBIEN CR) 12.5 mg CR tablet Stop taking 0 days prior to procedure documented in this encounter [facility] Instructions Note Date & Type Note Facility Instructions Not on filedocumented in this en counter [facility] Summary Purpose Family History No Family History Records FoundNo Family History Records FoundNo Family History Records Found Advance Directives No Advanced Directives Records FoundNo Advanced Directives Records FoundNo Advanced Directives Records Found Additional Source Comments (unrecognized sect ion and content) No Status Records FoundNo Status Records FoundNo Status Records Found INFORMATION SOURCE (unrecogn ized section and content) DATE CREATED AUTHOR 08/21/2022 [facility] DATE CREATED AUTHOR AUTHOR'S ORGANIZ ATION 01/31/2024 [facility] DATE CREATED AUTHOR AUTHOR'S ORGANIZ ATION 05/10/2024 [facility] Care Teams (unrecognized sec tion and content) 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 This clinical summary was aggregated from multiple sources. Caution should be exercised in using it in the provision of clinical care. This summary normalizes information from multiple sources, and as a consequence, information in this document may materially change the coding, format and clinical context of patient data. In addition, data may be omitted in some cases. CLINICAL DECISIONS SHOULD BE BASED ON THE PRIMARY CLINICAL RECORDS. [facility] [employer] [facility]. provides no warranty or guarantee of the accuracy or completeness of information in this document.
--- NOTE | 2024-06-08 20:31 | CT_ITS ---
The [address] [address] Patient Name: FLORENCIA COFFEY MRN: [id number] date: 1970 Sex: M Assigned Patient Location: ER Current Patient Location: ED.MAIN Accession/Order Number: [id number] Exam Date: 06/08/2024 20:53 Report Date: 06/08/2024 21:13 At the request of: CHUCK SAUER Procedure: CT head/brain wo con EXAM: CT head/brain wo con HISTORY: VILLEDA COMPARISON: 08/11/2022 TECHNIQUE: Multiple thin computed tomograms of the head were obtained, with sagittal and coronal reconstructions. Radiation reduction technique and algorithms were utilized during the study. FINDINGS: The ventricles are not enlarged, the lateral ventricles are symmetric and the third ventricles in the midline. The sylvian fissures and cortical sulci are unremarkable. There is no evidence of an intracranial hemorrhage, mass lesion or apparent acute infarct. A small amount of fluid in the posterior aspect of the right mesial temporal lobe may indicate an infarction or a choroid fissure cyst. This remains unchanged. No other focal abnormality is seen in the deep white matter. The cerebellum and brainstem appear unremarkable. The visualized paranasal sinuses are clear. There is been interval clearing of the left maxillary sinus. The middle ears are aerated and the mastoid sinuses are clear. There is no apparent acute skull fracture. CT/CT head/brain wo con IMPRESSION: There is no evidence evidence cranial hemorrhage, mass lesion or apparent acute infarct. A small amount of fluid in the mesial temporal lobe on the right is noted which is unchanged. The paranasal sinuses are now clear. There is no evidence of an acute skull fracture the overall appearance has not changed significantly. Electronically authenticated by: JUJU IRWIN Date: 06/08/2024 21:13
--- NOTE | 2024-06-08 20:31 | ECG_ITS ---
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
--- NOTE | 2024-06-08 20:31 | XR_ITS ---
The [address] [address] Patient Name: FLORENCIA COFFEY MRN: [id number] date: 1970 Sex: M Assigned Patient Location: ER Current Patient Location: ER Accession/Order Number: [id number] Exam Date: 06/08/2024 20:53 Report Date: 06/08/2024 21:15 At the request of: CHUCK SAUER Procedure: XR chest 1V EXAM: XR chest 1V at 2044 hours HISTORY: feels disoriented COMPARISON: 04/14/2023 TECHNIQUE: AP upright portable chest x-ray FINDINGS: Shallow inspiration. No acute infiltrate, effusion or pneumothorax is identified. The heart is not enlarged and the vasculature is not distended. The osseous structures are grossly intact. XR/XR chest 1V IMPRESSION: Shallow inspiration. No acute infiltrate or evidence of cardiac decompensation. Given the differences in technique, the overall appearance of the chest has probably not changed significantly. Electronically authenticated by: JUJU IRWIN Date: 06/08/2024 21:15
[2024-06-08 20:32] LABS: Glucometer 162 mg/dL (74-106)
[2024-06-08 20:41] LABS: Basophils Percent Auto 0.4 % (0.2-2.0); Eosinophils Percent Auto 0.5 % (0.9-7.0); Hematocrit 54.8 % (42.0-54.0); Hemoglobin 19.8 g/dL (14.0-18.0); Immature Granulocytes Abs Auto 0.05 10^3/uL (0.00-0.03); Immature Granulocytes Pct Auto 0.6 % (0.0-0.5); Lymphocytes Absolute Auto 0.7 10^3/uL (1.2-3.8); Lymphocytes Percent Auto 8.6 % (20.5-60.0); Mean Corpuscular HGB Conc 36.1 g/dL (29.9-35.2); Mean Corpuscular Hemoglobin 29.7 pg (25.9-34.0); Mean Corpuscular Volume 82.2 fL (80.0-94.0); Mean Platelet Volume 10.3 fL (9.5-13.5); Monocytes Absolute Auto 0.5 10^3/uL (0.3-0.8); Monocytes Percent Auto 6.5 % (1.7-12.0); Neutrophils Absolute Auto 6.5 10^3/uL (1.4-6.5); Neutrophils Percent Auto 83.4 % (43.0-75.0); Platelet Count 161 10^3/uL (150-450); Red Blood Count 6.67 10^6/uL (4.70-6.10); White Blood Count 7.8 10^3/uL (4.0-11.0)
[2024-06-08 20:57] LABS: Anion Gap 14.3; BUN Creatinine Ratio 12.4; Calcium 8.5 mg/dL (8.5-10.1); Carbon Dioxide 26.3 mmol/L (21.0-32.0); Chloride 102 mmol/L (98-107); Estimated GFR (African America >60 (>=60 mL/min/1.73m^2); Estimated GFR (Non-African Ame >60 (>=60 mL/min/1.73m^2); Glucose 181 mg/dL (74-106); Potassium 3.6 mmol/L (3.5-5.1); Sodium 139 mmol/L (136-145)
--- NOTE | 2024-06-08 21:11 | ED_ITS ---
HPI HPI - General Adult General Chief complaint: Altered Mental Status Stated complaint: Other Time Seen by Provider: 06/08/24 20:19 Source: patient Mode of arrival: walk-in Limitations: no limitations History of Present Illness HPI narrative: 53-year-old male presents to the emergency department for feeling disoriented and having a headache. He states this started more than 24 hours ago, all last night he was like that. He states that he was saying strange things to his family today that he really does not remember. He states that he was talking about his father coming over and his father is . He also stopped taking his blood pressure medicine about a week ago. He feels pressure in his head, no trauma or fever or localized weakness. Related Data Home Medications ?Medication ?Instructions ?Recorded ?Confirmed diazepam 5 mg tablet 5 mg PO BID PRN anxiety 06/08/24 06/08/24 fluticasone propionate 50 2 spray intranasal Q12H PRN nasal 06/08/24 06/08/24 mcg/actuation nasal congestion spray,suspension gabapentin 300 mg capsule 300 mg PO Q8H 06/08/24 06/08/24 glipizide 5 mg tablet, extended 5 mg PO DAILY 06/08/24 06/08/24 release 24 hr oxycodone-acetaminophen 7.5 mg-325 1 tab PO Q12H PRN pain 06/08/24 06/08/24 mg tablet promethazine 25 mg tablet 25 mg PO Q6H PRN nausea and 06/08/24 06/08/24 vomiting semaglutide 0.25 mg or 0.5 mg (2 0.5 mg subcut .WEEKLY 06/08/24 06/08/24 mg/3 mL) subcutaneous pen injector (Ozempic) tizanidine 4 mg tablet 4 mg PO QDAY 06/08/24 06/08/24 zolpidem 12.5 mg tablet,extended 12.5 mg PO BEDTIME 06/08/24 06/08/24 release,multiphase Allergies Allergy/AdvReac Type Severity Reaction Status Date / Time No Known Drug Allergies Allergy Verified 06/08/24 20:25 Opioid HPI Opioid Management Most Recent Opioid Data: Last Pain Scale 5 11/18/23 16:41 11/18/23 Ur Phencyclidine Scrn Negative (NEGATIVE) 06/08/24 22:30 05/20 06/12 Review of Systems ROS Narrative A ten point review of systems is negative except as noted above. [facility] Social History Smoking status: Never smoker Little interest or pleasure in doing things: not at all Feeling down, depressed, or hopeless: not at all Exam Narrative Exam Narrative: Nurses note and vital signs reviewed and patient is not hypoxic. General: The patient appears well and in no apparent distress. Patient is resting comfortably on cart. Skin: Warm, dry, no pallor noted. There is no rash noted. Head: Normocephalic, atraumatic, neck supple, no nuchal rigidity Eye: Normal conjunctiva, no drainage, EOMI. PERRL. Ears, Nose, Mouth, and Throat: oral mucosa is moist. Nares patent. Cardiovascular: Regular Rate and Rhythm, mildly tachycardic Respiratory: Patient is in no distress, no accessory muscle use, lungs are clear to auscultation, no wheezing, rales or rhonchi Back: non-tender GI: no tenderness to palpation, no masses appreciated. No rebound, guarding, or rigidity noted. Musculoskeletal: The patient has no evidence of calf tenderness, no pitting edema, symmetrical pulses noted bilaterally Neurological: A&O x4, normal speech; upper and lower extremity strength 5 out of 5 and symmetric Psychiatric: Cooperative Constitutional Vital Signs, click to edit/add: Last Vital Signs Temp 98.3 F 06/08/24 20:19 Pulse 105 H 06/08/24 22:18 Resp 17 06/08/24 22:18 BP 138/97 H 06/08/24 23:00 Pulse Ox 98 06/08/24 20:19 O2 Del Method Room Air 06/08/24 20:19 Course Vital Signs Vital signs: Vital Signs Temperature 98.3 F 06/08/24 20:19 Pulse Rate 118 H 06/08/24 20:19 Respiratory Rate 18 06/08/24 20:19 Blood Pressure 155/108 H 06/08/24 20:19 Pulse Oximetry 98 06/08/24 20:19 Oxygen Delivery Method Room Air 06/08/24 20:19 Temperature 98.3 F 06/08/24 20:19 Pulse Rate 105 H 06/08/24 22:18 Respiratory Rate 17 06/08/24 22:18 Blood Pressure 138/97 H 06/08/24 23:00 Pulse Oximetry 98 06/08/24 20:19 Oxygen Delivery Method Room Air 06/08/24 20:19 Medical Decision Making MDM Narrative Medical decision making narrative: His workup is negative including CT of the brain and CTA head and neck. He states he does not feel confused anymore and he is holding a normal conversation with me. He exhibits no evidence of confusion. He states that he does not sleep well and recently he has only been getting 3 to 4 hours of sleep. He is also on Valium for anxiety. I suspect that his symptoms may be due to the lack of sleep as well as of the Valium. He is able to be discharged home and will call his family doctor in the morning for follow-up. He will also resume his blood pressure medication in the morning. We discussed options of being admitted versus discharge home and he does not feel that he needs to be admitted and he is comfortable going home. I agree with this plan. Treatment diagnosis and follow-up were discussed thoroughly. Differential Diagnosis Differential Diagnosis: CVA, medication side effect, sleep deprivation Lab Data Lab results reviewed: Yes I reviewed the patient's lab results Labs: Lab Results 06/08/24 06/08/24 06/08/24 Range/Units 20:30 20:34 22:30 WBC 7.8 (4.0-11.0) 10^3/uL RBC 6.67 H (4.70-6.10) 10^6/uL Hgb 19.8 H (14.0-18.0) g/dL Hct 54.8 H (42.0-54.0) % MCV 82.2 (80.0-94.0) fL MCH 29.7 (25.9-34.0) pg MCHC 36.1 H (29.9-35.2) g/dL RDW 13.0 (11.0-15.0) % Plt Count 161 (150-450) 10^3/uL MPV 10.3 (9.5-13.5) fL Neut % (Auto) 83.4 H (43.0-75.0) % Lymph % (Auto) 8.6 L (20.5-60.0) % [place] % (Auto) 6.5 (1.7-12.0) % Eos % (Auto) 0.5 L (0.9-7.0) % Baso % (Auto) 0.4 (0.2-2.0) % Neut # (Auto) 6.5 (1.4-6.5) 10^3/uL Lymph # (Auto) 0.7 L (1.2-3.8) 10^3/uL [place] # (Auto) 0.5 (0.3-0.8) 10^3/uL Eos # (Auto) 0.0 (0.0-0.7) 10^3/uL Baso # (Auto) 0.0 (0.0-0.1) 10^3/uL Abs Immat Gran (auto) 0.05 H (0.00-0.03) 10^3/uL Imm/Tot Granulo (auto) 0.6 H (0.0-0.5) % Sodium 139 (136-145) mmol/L Potassium 3.6 (3.5-5.1) mmol/L Chloride 102 (98-107) mmol/L Carbon Dioxide 26.3 (21.0-32.0) mmol/L Anion Gap 14.3 BUN 13.0 (7.0-18.0) mg/dL Creatinine 1.05 (0.70-1.30) mg/dL Est GFR ( Amer) >60 (>=60 mL/min/1.73m^2) Est GFR (Non-Af Amer) >60 (>=60 mL/min/1.73m^2) BUN/Creatinine Ratio 12.4 Glucose 181 H (74-106) mg/dL Calcium 8.5 (8.5-10.1) mg/dL Urine Color Dk. yellow (YELLOW) Urine Clarity Clear (CLEAR) Urine pH 6.0 (5.0-9.0) Ur Specific [place] >=1.030 A (1.005-1.025) Urine Protein Trace (NEG/TRACE) mg/dL Urine Glucose (UA) Negative (NEGATIVE) mg/dL Urine Ketones Trace A (NEGATIVE) mg/dL Urine Occult Blood Negative (NEGATIVE) Urine Nitrite Negative (NEGATIVE) Urine Bilirubin Small A (NEGATIVE) Urine Urobilinogen 4.0 A (0.2-1.0) EU/dL Ur Leukocyte Esterase Negative (NEGATIVE) Urine RBC 0-2 (0-2) #/HPF Urine WBC 0-2 A (NONE SEEN) #/HPF Ur Squamous Epith Cells Few A (NONE/RARE) #/LPF Urine Crystals None seen (None Seen) #/HPF Urine Bacteria Trace A (NONE SEEN) #/HPF Urine Casts None seen (NONE SEEN) #/LPF Urine Mucus Small A (NONE SEEN) Ur Culture Indicated? No Urine Opiates Screen Negative (NEGATIVE) Ur Buprenorphine Scrn Negative (NEGATIVE) Ur Oxycodone Screen Negative (NEGATIVE) Urine Methadone Screen Negative (NEGATIVE) Ur Barbiturates Screen Negative (NEGATIVE) U Tricyclic Antidepress Negative (NEGATIVE) Ur Phencyclidine Scrn Negative (NEGATIVE) Ur Amphetamines Screen Negative (NEGATIVE) U Methamphetamines Scrn Negative (NEGATIVE) U Benzodiazepines Scrn Positive A (NEGATIVE) Urine Cocaine Screen Negative (NEGATIVE) U Cannabinoids Screen Negative (NEGATIVE) Ethanol Quant <3 mg/dL POC Glucose 162 H (74-106) mg/dL Imaging Data CT scan - head: Radiologist's impression: ITS Impressions Chest X-Ray 06/08/24 20:31 IMPRESSION: Shallow inspiration. No acute infiltrate or evidence of cardiac decompensation. Given the differences in technique, the overall appearance of the chest has probably not changed significantly. Electronically authenticated by: JUJU IRWIN Date: 06/08/2024 21:[address] 06/08/24 20:31 IMPRESSION: There is no evidence evidence cranial hemorrhage, mass lesion or apparent acute infarct. A small amount of fluid in the mesial temporal lobe on the right is noted which is unchanged. The paranasal sinuses are now clear. There is no evidence of an acute skull fracture the overall appearance has not changed significantly. Electronically authenticated by: JUJU IRWIN Date: 06/08/2024 21:13 Head CTA 06/08/24 22:34 IMPRESSION: 1. No flow limiting arterial stenosis within the neck. 2. No evidence of an intracranial large vessel occlusion. Electronically authenticated by: ROSA MANRIQUE Date: 06/08/2024 23:53 Neck CTA 06/08/24 22:34 IMPRESSION: 1. No flow limiting arterial stenosis within the neck. 2. No evidence of an intracranial large vessel occlusion. Electronically authenticated by: ROSA MANRIQUE Date: 06/08/2024 23:53 Discharge Plan Discharge Chief Complaint: Altered Mental Status Clinical Impression: Confusion Patient Disposition: Home, Self-Care Time of Disposition Decision: 00:10 Condition: Good Mode of Transportation: Private Vehicle Prescriptions / Home Meds: No Action diazepam 5 mg tablet 5 mg PO BID PRN (Reason: anxiety) fluticasone propionate 50 mcg/actuation spray,suspension 2 spray INTRANASAL Q12H PRN (Reason: nasal congestion) gabapentin 300 mg capsule 300 mg PO Q8H glipizide 5 mg tablet extended release 24hr 5 mg PO DAILY oxycodone-acetaminophen 7.5-325 mg tablet 1 tab PO Q12H PRN (Reason: pain) promethazine 25 mg tablet 25 mg PO Q6H PRN (Reason: nausea and vomiting) Ozempic 0.25 mg or 0.5 mg (2 mg/3 mL) pen injector 0.5 mg SUBCUT .WEEKLY tizanidine 4 mg tablet 4 mg PO QDAY zolpidem 12.5 mg tablet,ext release multiphase 12.5 mg PO BEDTIME Print Language: Kinyarwanda Instructions: Acute Delirium (ED) Additional Instructions: Call your family doctor in the morning for follow-up. Resume your blood pressure medication. Referrals: SAEID CHAIDEZ [Primary Care Provider] - 1 week
[2024-06-08 21:15] LABS: Ethanol <3 mg/dL
[2024-06-08] MEDS: MORPHINE SULFATE 4 MG/ML VIAL IV (22:24)
--- NOTE | 2024-06-08 22:34 | CT_ITS ---
The [address] [address] Patient Name: FLORENCIA COFFEY MRN: [id number] date: 1970 Sex: M Assigned Patient Location: ER Current Patient Location: Accession/Order Number: [id number] Exam Date: 06/08/2024 22:48 Report Date: 06/08/2024 23:53 At the request of: CHUCK SAUER Procedure: CT angio neck EXAM: CTA NECK AND CTA HEAD HISTORY: Confusion COMPARISON: CTA head and neck from 08/11/2022. CT head from 06/08/2024. TECHNIQUE: Axial images were obtained from the aortic arch through [place] of [place] following the intravenous administration of contrast. Sagittal, coronal and maximal intensity projection (MIP) reformations of both the head and neck were provided. 3-D volume rendered reformations were created at an independent workstation and submitted. All carotid stenoses were measured utilizing NASCET criteria. Dose reduction techniques were achieved by using automated exposure control and/or adjustment of mA and/or kV according to patient size and/or use of iterative reconstruction technique FINDINGS: CTA NECK: Incidentally noted is a common origin of the brachiocephalic and left common carotid arteries. No flow limiting stenosis at the origin of the great vessels. The subclavian and right axillary arteries are patent. The left axillary artery is poorly assessed due to artifact from adjacent dense injected intravenous contrast. No hemodynamically significant region of extracranial carotid narrowing, dissection or evidence of carotid occlusion. The right vertebral artery is dominant with the left vertebral artery smaller in caliber. Both vertebral arteries are patent at their origins and throughout their course within the neck. CTA HEAD: No flow limiting intracranial arterial stenosis or evidence of large vessel occlusion. There is no evidence of an intracranial aneurysm. The A1 segment of the right anterior cerebral artery is hypoplastic and smaller than its counterpart on the left. This finding reflects developmental vascular variation. The dural sinuses are suboptimally opacified and not well evaluated on this CTA. CT/CT angio neck IMPRESSION: 1. No flow limiting arterial stenosis within the neck. 2. No evidence of an intracranial large vessel occlusion. Electronically authenticated by: ROSA MANRIQUE Date: 06/08/2024 23:53
--- NOTE | 2024-06-08 22:34 | CT_ITS ---
The [address] [address] Patient Name: FLORENCIA COFFEY MRN: [id number] date: 1970 Sex: M Assigned Patient Location: ER Current Patient Location: Accession/Order Number: [id number] Exam Date: 06/08/2024 22:48 Report Date: 06/08/2024 23:53 At the request of: CHUCK SAUER Procedure: CT angio head EXAM: CTA NECK AND CTA HEAD HISTORY: Confusion COMPARISON: CTA head and neck from 08/11/2022. CT head from 06/08/2024. TECHNIQUE: Axial images were obtained from the aortic arch through [place] of [place] following the intravenous administration of contrast. Sagittal, coronal and maximal intensity projection (MIP) reformations of both the head and neck were provided. 3-D volume rendered reformations were created at an independent workstation and submitted. All carotid stenoses were measured utilizing NASCET criteria. Dose reduction techniques were achieved by using automated exposure control and/or adjustment of mA and/or kV according to patient size and/or use of iterative reconstruction technique FINDINGS: CTA NECK: Incidentally noted is a common origin of the brachiocephalic and left common carotid arteries. No flow limiting stenosis at the origin of the great vessels. The subclavian and right axillary arteries are patent. The left axillary artery is poorly assessed due to artifact from adjacent dense injected intravenous contrast. No hemodynamically significant region of extracranial carotid narrowing, dissection or evidence of carotid occlusion. The right vertebral artery is dominant with the left vertebral artery smaller in caliber. Both vertebral arteries are patent at their origins and throughout their course within the neck. CTA HEAD: No flow limiting intracranial arterial stenosis or evidence of large vessel occlusion. There is no evidence of an intracranial aneurysm. The A1 segment of the right anterior cerebral artery is hypoplastic and smaller than its counterpart on the left. This finding reflects developmental vascular variation. The dural sinuses are suboptimally opacified and not well evaluated on this CTA. CT/CT angio head IMPRESSION: 1. No flow limiting arterial stenosis within the neck. 2. No evidence of an intracranial large vessel occlusion. Electronically authenticated by: ROSA MANRIQUE Date: 06/08/2024 23:53
[2024-06-08 22:44] LABS: Bilirubin Urine SMALL (NEGATIVE); Blood Urine NEGATIVE (NEGATIVE); Clarity Urine CLEAR (CLEAR); Color Urine DK. YELLOW (YELLOW); Glucose Urine UA NEGATIVE (NEGATIVE); Ketones Urine TRACE mg/dL (NEGATIVE); Leukocyte Esterase Urine NEGATIVE (NEGATIVE); Nitrite Urine NEGATIVE (NEGATIVE); Protein Urine TRACE mg/dL (NEG/TRACE); Specific Gravity Urine >=1.030 (1.005-1.025)
[2024-06-08 22:57] LABS: WBC Urine 0-2 #/HPF (NONE SEEN)
[2024-06-08 22:58] LABS: Bacteria Urine TRACE #/HPF (NONE SEEN); Mucus Urine SMALL (NONE SEEN); RBC Urine 0-2 #/HPF (0-2); Squamous Epithelial Cell Urine FEW #/LPF (NONE/RARE)
[2024-06-08 22:59] LABS: Crystals Seen? None Seen #/HPF (None Seen)
[2024-06-08 23:00] LABS: Cast Seen? NONE SEEN #/LPF (NONE SEEN); Urine Culture Indicated NO
[2024-06-08 23:05] LABS: Amphetamine Screen Urine NEGATIVE (NEGATIVE); Barbiturates Screen Urine NEGATIVE (NEGATIVE); Benzodiazepines Screen Urine POSITIVE (NEGATIVE); Buprenorphine Screen Urine NEGATIVE (NEGATIVE); Cannabinoid Screen Urine NEGATIVE (NEGATIVE); Cocaine Screen Urine NEGATIVE (NEGATIVE); Methadone Screen Urine NEGATIVE (NEGATIVE); Methamphetamines Screen Urine NEGATIVE (NEGATIVE); Opiate Screen Urine NEGATIVE (NEGATIVE); Oxycodone Screen Urine NEGATIVE (NEGATIVE); Phencyclidine Screen Urine NEGATIVE (NEGATIVE); Tricyclic Antidepressant Urine NEGATIVE (NEGATIVE)
== END 2024-06-09 00:26 | disposition home or self-care (01) ==
PROVIDERS: Emergency Provider Emergency Medicine; PCP Family Medicine
DX: R41.0 Disorientation, unspecified (principal); R51.9 Headache, unspecified; F41.9 Anxiety disorder, unspecified; Z79.899 Other long term (current) drug therapy
CPT/HCPCS: 36415; 70450; 70496; 70498; 71045; 80048; 80307; 80320; 81001; 82948; 85025; 93005; 96374; 99285; J2270; Q9967

== ENCOUNTER 2024-08-13 16:35 | Emergency (ER) | payer BC, SELFPAY ==
[2024-08-13 16:41] VITALS: BP 141/100; PULSE 128; TEMP 38.8; O2SAT 97; BMI 32.9
--- NOTE | 2024-08-13 16:51 | ECG_ITS ---
The [facility] Test Date: 2024-08-13 Pat Name: FLORENCIA COFFEY Department: Room: - Gender: Male [employer]: : 1970 Requested By: [id number] Order Number: [id number] Reading MD: JAZ ANNA M.D. Measurements Intervals [place] Rate: 104 P: 20 ME: 134 QRS: 55 QRSD: 76 T: 37 QT: 324 QTc: 384 Interpretive Statements 1120 Sinus tachycardia Otherwise normal ECG Compared to ECG 06/08/2024 20:38:46 No significant changes Electronically Signed On 08-13-2024 19:27:09 EDT by JAZ ANNA M.D.
--- OUTSIDE RECORDS SUMMARY | 2024-08-13 16:51 | XMS_ITS | CCD ---
Author Organization [facility], [facility] Care Team Providers Care [employer] Practitioner Name Role Phone DR SAEID PARKER Primary Care Unavailable PARRISH ANTON Admitting Unavailable AUGUSTINA Byrnes, PARRISH Consulting Unavailable PARRISH ANTON Attending Unavailable CHRISTIN SEBASTIAN Consulting Unavailable NIKKI MCINTOSH Consulting Unavailable DAYNA WHITMAN Attending Unavailable KAYLYNN, SAEID A Referring Unavailable PARKER, SAEID A Primary Care Unavailable DAYNA WHITMAN Attending Unavailable PARKER, SAEID A Referring Unavailable PARKER, SAEID A Primary Care Unavailable Saeid Parker MD Primary Care Provider Saeid Parker MD Primary Care Provider SAEID PARKER Referring Unavailable PARKER, SAEID A Primary Care Unavailable MANDI JOHNSON Admitting Unavailable MANDI JOHNSON Attending Unavailable KAYLYNN, SAEID A Primary Care Unavailable MANDI JOHNSON Attending Unavailable MANDI JOHNSON Referring Unavailable PARKER, SAEID A Primary Care Unavailable ALBER ESCOBAR Attending Unavailable PARKER, SAEID A Primary Care Unavailable PARKER, SAEID A Referring Unavailable PARKER, SAEID A Primary Care Unavailable MANDI JOHNSON Admitting Unavailable MANDI JOHNSON Attending Unavailable PARKER, SAEID A Primary Care Unavailable PARKER, SAEID A Referring Unavailable PARKER, SAEID A Primary Care Unavailable PARKER, SAEID A Referring Unavailable PARKER, SAEID A Primary Care Unavailable Medications Current Medications Medication Drug Class(es) Dates Sig (Normalized) Sig (Original) acetaminophen 325 mg / oxyCODONE hydrochloride 7.5 mg oral tablet (6 sources) Opioid Agonist take 1 tablet by mouth once in the morning oxyCODONE-acetami nophen (PERCOCET) 7.5-325 mg per tablet Take 1 tablet by mouth in the morning and 1 tablet before bedtime. Active diazePAM 5 mg oral tablet (6 sources) Benzodiazepine take 1 tablet by mouth in the morning, then take 1 tablet by mouth at bedtime diazePAM (VALIUM) 5 mg tablet Take 1 tablet (5 mg total) by mouth in the morning and 1 tablet (5 mg total) before bedtime. Active fexofenadine hydrochloride 180 mg oral tablet (6 sources) Histamine-1 Receptor Antagonist take 1 tablet by mouth in the morning fexofenadine (AMANDO) 180 mg tablet Take 1 tablet (180 mg total) by mouth in the morning. Active fluticasone propionate 0.05 mg/actuat metered dose nasal spray (6 sources) Corticosteroid take 1 spray(s) nasal route in the morning fluticasone propionate (FLONASE) 50 mcg/actuation nasal spray Administer 1 spray into each nostril in the morning. Active gabapentin 300 mg oral capsule (6 sources) Anti-epileptic Agent take 1 capsule by mouth three times daily gabapentin (NEURONTIN) 300 mg capsule Take 1 capsule (300 mg total) by mouth 3 (three) times a day. Active glipiZIDE 5 mg oral tablet (6 sources) Sulfonylurea take 1 tablet by mouth in the morning glipiZIDE (GLUCOTROL) 5 mg tablet Take 1 tablet (5 mg total) by mouth in the morning. Active lisinopril 10 mg oral tablet (3 sources) Angiotensin Converting Enzyme Inhibitor Start: 01-09-2024 take 1 tablet by mouth in the morning lisinopriL (PRINIVIL,ZESTRIL ) 10 mg tablet Take 1 tablet (10 mg total) by mouth in the morning. 01/09/2024 Active omeprazole 40 mg delayed release oral capsule (6 sources) Proton Pump Inhibitor take 1 capsule by mouth in the morning omeprazole (PriLOSEC) 40 mg capsule Take 1 capsule (40 mg total) by mouth in the morning. Active promethazine hydrochloride 25 mg rectal suppository (6 sources) Phenothiazine take 25 mg rectal route every six hours as needed for nausea and vomiting promethazine (PHENERGAN) 25 mg suppository Insert 1 suppository (25 mg total) into the rectum every 6 (six) hours as needed for nausea or vomiting. Active semaglutide (OZEMPIC) 0.25 mg or 0.5 mg (2 mg/3 mL) pen injector (6 sources) semaglutide (OZEMPIC) 0.25 mg or 0.5 mg (2 mg/3 mL) pen injector Inject 0.5 mg under the skin every 7 days. tuesdays Active semaglutide (OZE MPIC) 0.25 mg or 0.5 mg (2 mg/3 mL) pen injector Inject 0.5 mg under the skin every 7 days. Active sertraline 50 mg oral tablet (8 sources) Serotonin Reuptake Inhibitor take 1.5 tablets by mouth in the morning sertraline (ZOLOFT) 50 mg tablet Take 1.5 tablets (75 mg total) by mouth in the morning. Active End: 12-02-2023 sertraline (ZOLOFT) 100 mg t ablet Take 1 tablet (100 mg total) by mouth. 12/02/2023 Discontinued (Therapy completed) sod sulf-pot chloride-mag diez lf 1.479-0.188- 0.225 gram tablet (4 sources) Start: 01-29-2024 sod sulf-pot c hloride-mag sulf 1.479-0.188- 0.225 gram tablet Indications: Encounter for screening colonoscopy Please see instructional sheet given by physicians office. 24 tablet 01/29/2024 Active Start: 12-02-2023 sod sulf-pot c hloride-mag sulf 1.479-0.188- 0.225 gram tablet Indications: Encounter for screening colonoscopy Please see instructional sheet given by physicians office. 24 tablet 12/02/2023 Active tiZANidine 4 mg oral tablet (6 sources) Central alpha-2 Adrenergic Agonist take 1 tablet by mouth every six hours as needed tiZANidine (ZANAFLEX) 4 mg tablet Take 1 tablet (4 mg total) by mouth every 6 (six) hours as needed for muscle spasms. Active zolpidem tartrate 12.5 mg extended release oral tablet (6 sources) gamma-Aminobutyric Acid-ergic Agonist take 1 tablet by mouth once daily as needed for sleep zolpidem CR (AMBIEN CR) 12.5 mg CR tablet Take 1 tablet (12.5 mg total) by mouth nightly as needed for sleep. Active Completed/Discontinued Medications Medication Drug Class(es) Dates Sig (Normalized) Sig (Original) 0.5 ml dulaglutide 3 mg/ml auto-injector (2 sources) GLP-1 Receptor Agonist End: 12-02-2023 dulaglutide (TRULICITY) 1.5 mg/0.5 mL pen injector Inject 1.5 mg under the skin every 7 days. 12/02/2023 Discontinued (Alternate therapy) metFORMIN hydrochloride 500 mg oral tablet (2 sources) Biguanide End: 12-02-2023 metFORMIN (GLUCOPHAGE) 500 mg tablet Take 500 mg by mouth. 12/02/2023 Discontinued (Therapy completed) Problems Active Problems Problem Classification Problem Date Documented Da te Episodic/Chronic Deficiency and other anemia (1 source) Other hemoglobinopathies; 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: [Other hemoglobinopathies] Onset: 08-07-2024 Chronic Diabetes mellitus with complications (1 source) Type 2 diabetes mellitus with hyperglycemia; 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: [Type 2 diabetes mellitus with hyperglycemia] Onset: 05-07-2024 Chronic Diabetes mellitus without complication (1 source) Type 2 diabetes mellitus without complications; 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: [TYPE 2 DM WITHOUT COMPLICATIONS] Onset: 08-13-2022 Chronic Headache; including migraine (4 sources) Headache; including migraine; 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: [HEADACHE UNSPECIFIED] Onset: 08-11-2022 Malaise and fatigue (1 source) Other fatigue; 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: [Other fatigue] Onset: 08-07-2024 Episodic Mood disorders (1 source) Mood disorders; 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: [DEPRESSION UNSPECIFIED] Onset: 08-13-2022 Nutritional deficiencies (1 source) Vitamin D deficiency, unspecified; 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: [Vitamin D deficiency, unspecified] Onset: 08-07-2024 Chronic Other aftercare (1 source) Other nursing home (current) drug therapy; 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: [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] Onset: 08-13-2022 Episodic Other aftercare (1 source) 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; 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: [SHELTER USE ORAL HYPOGLYCEMIC DX] Onset: 08-13-2022 Episodic Other connective tissue disease (1 source) Arthrodesis status; 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: [ARTHRODESIS STATUS] Onset: 08-13-2022 Episodic Other connective tissue disease (1 source) Myalgia, other site; 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: [Myalgia, other site] Onset: 08-07-2024 Episodic Other lower respiratory disease (1 source) Shortness of breath; 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: [SHORTNESS OF BREATH] Onset: 08-13-2022 Episodic Other screening for suspected conditions (not mental disorders or infectious disease) (6 sources) Encounter for screening for malignant neoplasm of colon; 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: [Patient encounter status] Onset: 12-02-2023 12-02-2023 Episodic Other upper respiratory infections (1 [...] of sigmoid colon] Onset: 03-15-2024 Episodic Other and unspecified benign neoplasm (1 source) Benign neoplasm of transverse colon; 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: [Benign neoplasm of transverse colon] Onset: 12-08-2023 Episodic Results Test Name Value Interpretation Reference Range Facility CBC AND AUTO DIFFon 08-08-19 25 ABSOLUTE BASOPHIL 0.1 X10E9/L Normal 0.0-0.2 [facility] Comment on above: Performed By: #### 8 2477-1, CBCA, 298-8, CMP, 1987-09, #### [facility] ([id number]) [address] [place] [address] Band form neutrophils/100 WBC (Bld) 2.2 % Normal [facility] Comment on above: Performed By: #### 8 2477-1, CBCA, 2986-8, CMP, 1987-09, #### [facility] ([id number]) [address], [address] [place] [address] Basophils/100 WBC (Bld) 1.1 % Normal [facility] Comment on above: Performed By: #### 8 2477-1, CBCA, 298-8, CMP, 1987-09, #### [facility] ([id number]) [address], [address] [place] [address] Eosinophils (Bld) [#/Vol] 0.1 10*3/uL Normal 0.0-0.4 [facility] Comment on above: Performed By: #### 8 2477-1, CBCA, 2985-8, CMP, 1987-09, #### [facility] ([id number]) [address] [address] [place] [address] Eosinophils/100 WBC (Bld) 1.1 % Normal [facility] Comment on above: Performed By: #### 8 2477-1, CBCA, 8, CMP, 1987-09, #### [facility] ([id number]) [address] [address] [place] [address] Erythrocyte distribution width (RBC) [Ratio] 13.8 % Normal 11.5-15.0 [facility] Comment on above: Performed By: #### 8 2477-1, CBCA, 2985-8, CMP, 1987-09, #### [facility] ([id number]) [address] [address] [place] [address] Hematocrit (Bld) [Volume fraction] 50.9 % High 39-49 [facility] Comment on above: Performed By: #### 8 2477-1, CBCA, 2986-8, CMP, 1987-09, #### [facility] ([id number]) [address], [address] [place] [address] Hemoglobin (Bld) [Mass/Vol] 18.2 g/dL High 13.0-17.0 [facility] Comment on above: Performed By: #### 8 2477-1, CBCA, 8, CMP, 1987-09, #### [facility] ([id number]) [address], [address] [place] [address] Lymphocytes (Bld) [#/Vol] 1.4 10*3/uL Normal 1.0-3.5 [facility] Comment on above: Performed By: #### 8 2477-1, CBCA, 2985-12, CMP, 1987-09, #### [facility] ([id number]) [address], [address] [place] [address] Lymphocytes/100 WBC (Bld) 20.0 % Normal [facility] Comment on above: Performed By: #### 8 2477-1, CBCA, 8, CMP, 1987-09, #### [facility] ([id number]) [address], [address] [place] [address] MCH (RBC) [Entitic mass] 30.5 pg Normal 27-34 [facility] Comment on above: Performed By: #### 8 2477-1, CBCA, 2985-12, CMP, 1987-09, #### [facility] ([id number]) [address], [address] [place] [address] MCHC (RBC) [Mass/Vol] 35.8 g/dL Normal 32-36 [facility] Comment on above: Performed By: #### 8 2477-1, CBCA, 8, CMP, 1987-09, #### [facility] ([id number]) [address], [address] [place] [address] MCV (RBC) [Entitic vol] 85 fL Normal 80-100 [facility] Comment on above: Performed By: #### 8 2477-1, CBCA, 2986-8, CMP, 1987-09, 85049-9 #### [facility] ([id number]) [address], [address] [place] [address] Monocytes (Bld) [#/Vol] 0.2 10*3/uL Normal 0-0.9 [facility] Comment on above: Performed By: #### 8 2477-1, CBCA, 2986-8, CMP, 1987-09, 94500-5 #### [facility] ([id number]) [address], [address] [place] [address] Monocytes/100 WBC (Bld) 3.3 % Normal [facility] Comment on above: Performed By: #### 8 2477-1, CBCA, 298-8, CMP, 1987-09, 40747-3 #### [facility] ([id number]) [address], [address] [place] [address] Neutrophils (Bld) [#/Vol] 5.3 10*3/uL Normal 1.5-6.6 [facility] Comment on above: Performed By: #### 8 2477-1, CBCA, 2986-8, CMP, 1987-09, 79765-9 #### [facility] ([id number]) [address], [address] [place] [address] Platelet mean volume (Bld) [Entitic vol] 9.3 fL Normal 7-12 [facility] Comment on above: Performed By: #### 8 2477-1, CBCA, 2986-8, CMP, 1987-09, 99171-2 #### [facility] ([id number]) [address], [address] [place] [address] Platelets (Bld) [#/Vol] 162 10*3/uL Normal 150-450 [facility] Comment on above: Performed By: #### 8 2477-1, CBCA, 2986-8, CMP, 1987-09, 66243-6 #### [facility] ([id number]) [address], [address] [place] [address] RBC COUNT 5.97 X10E12/L High 4.10-5.70 [facility] Comment on above: Performed By: #### 8 2477-1, CBCA, 2986-8, CMP, 1987-09, 94714-9 #### [facility] ([id number]) [address], [address] [place] [address] RBC morphology finding Nom (Bld) NORMAL Normal [facility] Comment on above: Performed By: #### 8 2477-1, CBCA, 2986-8, CMP, 1987-09, 60685-1 #### [facility] ([id number]) [address], [address] [place] [address] SEG NEUTROPHIL 72.3 % Normal [facility] Comment on above: Performed By: #### 8 2477-1, CBCA, 298-8, CMP, 1987-09, 81995-1 #### [facility] ([id number]) [address], [address] [place] [address] WBC (Bld) [#/Vol] 7.0 10*3/uL Normal 4.0-11.0 [facility] Comment on above: Performed By: #### 8 7-1, CBCA, 2986-8, CMP, 1987-09, 42779-6 #### [facility] ([id number]) [address], [address] [place] [address] COMPREHENSIVE METABOLIC PANE Cd 08-07-2024 Albumin [Mass/Vol] 4.4 g/dL Normal 3.2-5.3 [facility] Comment on above: Performed By: #### 8 2477-1, CBCA, 2986-8, CMP, 1987-09, 97658-1 ####[facility] ([id number])[address], [address], [place] [address] ALP [Catalytic activity/Vol] 63 U/L Normal 39-130 [facility] Comment on above: Performed By: #### 8 2477-1, CBCA, 2986-8, CMP, 1987-09, 48203-0 ####[facility] ([id number])[address], [address], [place] [address] ALT [Catalytic activity/Vol] 50 U/L High 0-40 [facility] Comment on above: Performed By: #### 8 2477-1, CBCA, 2986-8, CMP, 1987-09, 49237-9 ####[facility] ([id number])[address], [address], [place] [address] Anion gap [Moles/Vol] 10 mmol/L Normal 5-15 [facility] Comment on above: Performed By: #### 8 2477-1, CBCA, 2986-8, CMP, 1987-09, 31586-1 ####[facility] ([id number])[address] [address], [place] [address] AST [Catalytic activity/Vol] 27 U/L Normal 0-41 [facility] Comment on above: Performed By: #### 8 2477-1, CBCA, 2986-8, CMP, 1987-09, ####[facility] ([id number])[address], [address], [place] [address] Bilirubin [Mass/Vol] 0.5 mg/dL Normal 0.3-1.2 [facility] Comment on above: Performed By: #### 8 2477-1, CBCA, 2986-8, CMP, 1987-09, ####[facility] ([id number])[address] [address], [place] [address] Calcium [Mass/Vol] 9.3 mg/dL Normal 8.5-10.5 [facility] Comment on above: Performed By: #### 8 2477-1, CBCA, 2986-8, [facility], 1987-09, ####[facility] ([id number])[address] [address] [address] Chloride [Moles/Vol] 103 mmol/L Normal 98-109 [facility] Comment on above: Performed By: #### 8 7-1, CBCA, 2986-8, [facility], 1987-09, ####[facility] ([id number])[address] [address] [place] [address] CO2 [Moles/Vol] 25 mmol/L Normal 22-32 [facility] Comment on above: Performed By: #### 8 2477-1, CBCA, 2986-8, [facility], 1987-09, ####[facility] ([id number])[address] [address] [place] [address] Creatinine [Mass/Vol] 0.78 mg/dL Normal 0.60-1.30 [facility] Comment on above: Result Comment: METH OD TRACEABLE TO IDMS STANDARD Performed By: #### 8 2477-1, CBCA, 2986-8, [facility], 1987-09, ####[facility] ([id number])[address] [address] eGFR (CKD-EPI) NON-RACE DEPENDENT >90 Normal >59 [facility] Comment on above: Result Comment: Reported eGFR is based on the CKD-EPI 2020 equation that does not use a race coefficient. Performed By: #### 8 2477-1, CBCA, 2986-8, CMP, 1987-09, ####[facility] ([id number])[address] [address] [place] [address] Glucose [Mass/Vol] 164 mg/dL High 65-99 [facility] Comment on above: Performed By: #### 8 2477-1, CBCA, 2986-8, CMP, 1987-09, 12513-6 ####[facility] ([id number])[address], [address], [place] [address] Potassium [Moles/Vol] 3.8 mmol/L Normal 3.5-5.0 [facility] Comment on above: Performed By: #### 8 2477-1, CBCA, 2986-8, CMP, 1987-09, 10975-5 ####[facility] ([id number])[address] [address] Protein [Mass/Vol] 7.4 g/dL Normal 6.0-8.0 [facility] Comment on above: Performed By: #### 8 2477-1, CBCA, 2986-8, CMP, 1987-09, 06394-0 ####[facility] ([id number])[address], [address], [place] [address] Sodium [Moles/Vol] 138 mmol/L Normal 134-146 [facility] Comment on above: Performed By: #### 8 2477-1, CBCA, 2986-8, CMP, 1987-09, 07347-7 ####[facility] ([id number])[address], [address], [place] [address] Urea nitrogen [Mass/Vol] 15 mg/dL Normal 5-23 [facility] Comment on above: Performed By: #### 8 2477-1, CBCA, 2986-8, CMP, 1987-09, 84329-5 ####[facility] ([id number])[address], [address], [place] [address] CRP [Mass/Vol]on 08-07-2024 C REACTIVE PROTEIN 0.2 mg/dL Normal 0.000-0.744 [facility] Comment on above: Performed By: #### 8 2477-1, CBCA, 2986-8, [facility], 1987-09, ####[facility] ([id number])[address], [address], [place] [address] ESR Photometric method (Bld) [Velocity]on 08-07-2024 ESR, ERYTHROCYTE SEDIMENTATION RATE 2 mm/h Normal 0-20 [facility] Comment on above: Performed By: #### 8 2477-1, CBCA, 298-8, [facility], 1987-09, #### [facility] ([id number]) [address], [address] [place] [address] Testosterone [Mass/Vol]on TESTOSTERONE 3.33 ng/mL Normal 1.68-7.46 [facility] Comment on above: Performed By: #### 8 2477-1, CBCA, 2985-8, [facility], 1987-09, #### [facility] ([id number]) [address], [address] [place] [address] Vitamin D+Metabolites [Mass/ Vol]on 08-07-2024 VITAMIN D 25 HYD TOT 8.1 ng/mL Low 30-100 [facility] Comment on above: Result Comment: Vitamin D status 25 [place] Vitamin D Deficiency <20 ng/mL Insufficiency 20-29 ng/mL Sufficiency 30-100 ng/mL Toxicity >100 ng/mL NOTE: A pediatric reference range has not been established by the staff analyst of this kit. The [employer] [employer] recommends a Vitamin D level of = or >20ng/mL in infants and children. Performed By: #### 8 2477-1, CBCA, 2986-8, [facility], 1987-09, ####[facility] ([id number])[address], [place] [address] CBC AND AUTO DIFFon 12-20-20 24 ABSOLUTE BASOPHIL 0.1 X10E9/L Normal 0.0-0.2 [facility] Comment on above: Performed By: #### C BCA, 2857-1, CMP, 99582-3 #### [facility] ([id number]) [address], [facility] [address] [place] [address] ABSOLUTE NEUTROPHIL 4.8 X10E9/L Normal 1.5-6.6 [facility] Comment on above: Performed By: #### C BCA, 2857-1, CMP, 28481-0 #### [facility] ([id number]) [address], [facility] [address] [place] [address] Basophils/100 WBC (Bld) 0.9 % Normal [facility] Comment on above: Performed By: #### Maggie BCA, 2857-1, CMP, 99721-2 #### [facility] ([id number]) [address] [address] [place] [address] Eosinophils (Bld) [#/Vol] 0.3 10*3/uL Normal 0.0-0.4 [facility] Comment on above: Performed By: #### Maggie BCA, 2857-1, CMP, 26067-3 #### [facility] ([id number]) [address] [address] [place] [address] Eosinophils/100 WBC (Bld) 3.6 % Normal [facility] Comment on above: Performed By: #### C BCA, 2857-1, CMP, 21984-7 #### [facility] ([id number]) [address] [address] [place] [address] Erythrocyte distribution width (RBC) [Ratio] 13.3 % Normal 11.5-15.0 [facility] Comment on above: Performed By: #### Maggie BCA, 2857-1, CMP, 35466-7 #### [facility] ([id number]) [address], [address] [place] [address] Hematocrit (Bld) [Volume fraction] 51.4 % High 39-49 [facility] Comment on above: Performed By: #### C BCA, 2857-1, CMP, 52633-9 #### [facility] ([id number]) [address], [facility] [address] [place] [address] Hemoglobin (Bld) [Mass/Vol] 18.1 g/dL High 13.0-17.0 [facility] Comment on above: Performed By: #### Maggie BCA, 2857-1, CMP, 27796-6 #### [facility] ([id number]) [address], [facility] [address] [place] [address] Lymphocytes (Bld) [#/Vol] 2.3 10*3/uL Normal 1.0-3.5 [facility] Comment on above: Performed By: #### Maggie BCA, 2857-1, CMP, 33366-5 #### [facility] ([id number]) [address], [facility] [address] [place] [address] Lymphocytes/100 WBC (Bld) 29.1 % Normal [facility] Comment on above: Performed By: #### Maggie BCA, 2857-1, CMP, 68197-8 #### [facility] ([id number]) [address], [address] [place] [address] MCH (RBC) [Entitic mass] 29.8 pg Normal 27-34 [facility] Comment on above: Performed By: #### C BCA, 2857-1, CMP, 09979-2 #### [facility] ([id number]) [address], [address] [place] [address] MCHC (RBC) [Mass/Vol] 35.3 g/dL Normal 32-36 [facility] [facility] Comment on above: Performed By: #### Maggie BCA, 2857-1, CMP, 47878-7 #### [facility] ([id number]) [address], [address] [place] [address] MCV (RBC) [Entitic vol] 85 fL Normal 80-100 [facility] Comment on above: Performed By: #### Maggie BCA, 2857-1, CMP, 32814-0 #### [facility] ([id number]) [address], [address] [place] [address] Monocytes (Bld) [#/Vol] 0.4 10*3/uL Normal 0-0.9 [facility] Comment on above: Performed By: #### Maggie RODRIGUEZ, 2857-1, CMP, 80372-7 #### [facility] ([id number]) [address], [facility] [address] [place] [address] Monocytes/100 WBC (Bld) 4.9 % Normal [facility] Comment on above: Performed By: #### Maggie BCA, 2857-1, CMP, 68759-6 #### [facility] ([id number]) [address], [facility] [address] [place] [address] Neutrophils/100 WBC (Bld) 61.5 % Normal [facility] Comment on above: Performed By: #### Maggie BCA, 2857-1, CMP, 56084-5 #### [facility] ([id number]) [address], [address] [place] [address] Platelet mean volume (Bld) [Entitic vol] 8.6 fL Normal 7-12 [facility] Comment on above: Performed By: #### Maggie BCA, 2857-1, CMP, 21274-8 #### [facility] ([id number]) [address], [address] [place] [address] Platelets (Bld) [#/Vol] 230 10*3/uL Normal 150-450 [facility] Comment on above: Performed By: #### Maggie BCA, 2857-1, CMP, 29726-6 #### [facility] ([id number]) [address], [address] [place] [address] RBC COUNT 6.08 X10E12/L High 4.10-5.70 [facility] Comment on above: Performed By: #### C BCA, 2857-1, CMP, 32021-8 #### [facility] ([id number]) [address], [address] [place] [address] WBC (Bld) [#/Vol] 7.8 10*3/uL Normal 4.0-11.0 [facility] Comment on above: Performed By: #### C BCA, 2857-1, CMP, 19032-6 #### [facility] ([id number]) [address], [address] [place] [address] COMPREHENSIVE METABOLIC PANE Dc 05-07-2024 Albumin [Mass/Vol] 4.2 g/dL Normal 3.2-5.3 [facility] Comment on above: Performed By: #### C BCA, 2857-1, CMP, 17418-4 #### [facility] ([id number]) [address], [address] [place] [address] ALP [Catalytic activity/Vol] 66 U/L Normal 39-130 [facility] Comment on above: Performed By: #### C BCA, 2857-1, CMP, 47051-5 #### [facility] ([id number]) [address], [address] [place] [address] ALT [Catalytic activity/Vol] 68 U/L High 0-40 [facility] Comment on above: Performed By: #### C BCA, 2857-1, CMP, 00659-2 #### [facility] ([id number]) [address], [address] [place] [address] Anion gap [Moles/Vol] 10 mmol/L Normal 5-15 [facility] Comment on above: Performed By: #### C BCA, 2857-1, CMP, 43980-7 #### [facility] ([id number]) [address], [address] [place] [address] AST [Catalytic activity/Vol] 36 U/L Normal 0-41 [facility] Comment on above: Performed By: #### C BCA, 2857-1, CMP, 79012-6 #### [facility] ([id number]) [address], [address] [place] [address] Bilirubin [Mass/Vol] 0.7 mg/dL Normal 0.3-1.2 [facility] Comment on above: Performed By: #### C BCA, 2857-1, CMP, 13930-2 #### [facility] ([id number]) [address], [address] [place] [address] Calcium [Mass/Vol] 9.4 mg/dL Normal 8.5-10.5 [facility] Comment on above: Performed By: #### C BCA, 2857-1, CMP, 17823-4 #### [facility] ([id number]) [address], [address] [place] [address] Chloride [Moles/Vol] 103 mmol/L Normal 98-109 [facility] Comment on above: Performed By: #### C BCA, 2857-1, CMP, 41103-8 #### [facility] ([id number]) [address], [address] [place] [address] CO2 [Moles/Vol] 27 mmol/L Normal 22-32 [facility] Comment on above: Performed By: #### C BCA, 2857-1, CMP, 89165-0 #### [facility] ([id number]) [address], [address] [place] [address] Creatinine [Mass/Vol] 0.76 mg/dL Normal 0.60-1.30 [facility] Comment on above: Result Comment: METH OD TRACEABLE TO IDMS STANDARD Performed By: #### C BCA, 2857-1, CMP, 42708-2 #### [facility] ([id number]) [address], [address] [place] [address] eGFR (CKD-EPI) NON-RACE DEPENDENT >90 Normal >59 [facility] Comment on above: Result Comment: Reported eGFR is based on the CKD-EPI 2020 equation that does not use a race coefficient. Performed By: #### C BCA, 2857-1, CMP, 85182-2 #### [facility] ([id number]) [address], [address] [place] [address] Glucose [Mass/Vol] 140 mg/dL High 65-99 [facility] Comment on above: Performed By: #### C BCA, 2857-1, CMP, 19630-7 #### [facility] ([id number]) [address], [address] [place] [address] Potassium [Moles/Vol] 3.8 mmol/L Normal 3.5-5.0 [facility] Comment on above: Performed By: #### C BCA, 2857-1, CMP, 05937-3 #### [facility] ([id number]) [address], [address] [place] [address] Protein [Mass/Vol] 7.2 g/dL Normal 6.0-8.0 [facility] Comment on above: Performed By: #### C BCA, 2857-1, CMP, 35940-4 #### [facility] ([id number]) [address], [address] [place] [address] Sodium [Moles/Vol] 140 mmol/L Normal 134-146 [facility] Comment on above: Performed By: #### C BCA, 2857-1, CMP, 17143-3 #### [facility] ([id number]) [address], [address] [place] [address] Urea nitrogen [Mass/Vol] 10 mg/dL Normal 5-23 [facility] Comment on above: Performed By: #### Maggie RODRIGUEZ, 2857-1, CMP, 92814-4 #### [facility] ([id number]) [address], [facility] [address] [place] [address] Lipid 1996 panelon 4 Cholesterol [Mass/Vol] 163 mg/dL Normal 150-200 [facility] Comment on above: Performed By: #### C MICHAEL, 2857-1, CMP, 88769-9 #### [facility] ([id number]) [address], [facility] [address] [place] [address] Cholesterol in HDL [Mass/Vol] 32 mg/dL Low >39 [facility] Comment on above: Result Comment: HDL <40 mg/dL - High Risk HDL > or = 40mg/dL- Desirable HDL >60 mg/dL - Negative Risk Performed By: #### Maggie RODRIGUEZ, 2857-1, CMP, 34263-7 #### [facility] ([id number]) [address], [facility] [address] [place] [address] Cholesterol in LDL [Mass/Vol] 91 mg/dL Normal <130 [facility] Comment on above: Result Comment: LDL <100 mg/dL - Desirable LDL >160 mg/dL - High Risk Performed By: #### Maggie RODRIGUEZ, 2857-1, CMP, 03425-0 #### [facility] ([id number]) [address], [address] [place] [address] Cholesterol in VLDL [Mass/Vol] 40 mg/dL High 0-30 [facility] Comment on above: Performed By: #### C BCA, 2857-1, CMP, 45432-5 #### [facility] ([id number]) [address], [address] [place] [address] CHOLESTEROL:HDL 5.1 High 1.0-5.0 [facility] Comment on above: Performed By: #### C BCA, 2857-1, CMP, 74403-6 #### [facility] ([id number]) [address], [address] [place] [address] Triglyceride [Mass/Vol] 199 mg/dL High 27-150 [facility] Comment on above: Performed By: #### C BCA, 2857-1, CMP, 65233-7 #### [facility] ([id number]) [address], [address] [place] [address] MICROALBUMIN - ALBUMIN:CREAT ININE URINE RATIOon 05-07-2024 ALB/CREAT RATIO 6.8 mg/g creat Normal 0.0-30.0 [facility] Comment on above: Performed By: #### M ALBU #### [facility] ([id number]) [address], [address] [place] [address] Albumin DL <= 20 mg/L (U) [Mass/Vol] 1.4 mg/dL Normal 0.0-1.9 [facility] Comment on above: Performed By: #### M ALBU #### [facility] ([id number]) [address], [address] [place] [address] URINE CREAT 206.05 mg/dL Normal [facility] Comment on above: Performed By: #### M ALBU #### [facility] ([id number]) [address], [address] [place] [address] Prostate specific Ag [Mass/V ol]on 05-07-2024 PSA SCREEN 2.26 ng/mL Normal 0.00-4.00 [facility] Comment on above: Result Comment: The method used for this test is Leon Gloria DXI chemiluminescent immunoassay. Values obtained by different assay methods cannot be used interchangeably. Performed By: #### C BCA, 2857-1, CMP, 33659-8 #### [facility] ([id number]) [address] [place] [address], [address] [place] [address] Surgical Pathologyon 024 Surgical Pathology Normal [facility] Comment on above: Result Comment: [facility] [address] [place] [address] Surgical Pathology Consultation Patient Name:BERTA COFFEY:1970 (Age: 53)Gender:MTaken:03/15/2024eported:03/18/2024hysician(s):Mandi Johnson D.O. ([phone])Copy To: Rec. #:[id number]: #[id number] Final Pathologic Diagnosis Distal sigmoid colon polyp, biopsy: Tubular adenoma. Report Electronically Signed Out nxk03/18/2024Ranjith Lopez MD [place] [address], License number: [id number]. Clinical History Screening. 1. Cold snared a polyp in the distal sigmoid colon. Gross Description Received in formalin labeled ALEXX distal sigmoid polyp is a pale-abdalla delicate soft tissue bit, 0.5 cm in greatest dimension. The specimen is filtered and submitted the single cassette. (1,ns,[id number], m4) TB tgb/03/16/2024GR Specimen(s) Received Distal sigmoid colon polyp Fee Codes(s): 1; 76607 Surgical Pathologyon 024 Surgical Pathology Normal [facility] Comment on above: Result Comment: [facility] [address] [place] [address] Surgical Pathology Consultation Patient Name:BERTA COFFEY:1970 (Age: 53)Gender:MTaken:12/08/2023eported:12/10/2023hysician(s):Mandi Johnson D.O. ([phone])Copy To: Rec. #:[id number]: #[id number] Final Pathologic Diagnosis Transverse colon, polypectomy: Tubular adenoma. Report Electronically Signed Out rg/12/10/2023husam Peng MD Interpretation [place] [address], License number: [id number]. Clinical History Screening. Gross Description Received in formalin labeled justyna COFFEY is a pale-abdalla delicate soft tissue fragment, 0.5 cm in greatest dimension. The specimens are filtered and submitted in a single cassette. (1,ns,[id number], m4) TB tgb/12/09/2023O Specimen(s) Received Transverse colon biopsy Fee Codes(s): 1; 04837 ACETONE SERUMon 08-11-2022 ACETONE Negative Normal NEGATIVE [facility] Comment on above: Performed By: #### A CETON #### [facility] [address] [address] [address] Kirsten [facility] BNPon 08-11-2022 Natriuretic peptide B (Bld) [Mass/Vol] 15.0 pg/mL Normal <=900.0 [facility] Comment on above: Performed By: #### C MP, BNP, CMADM #### [facility] [address] [address] [address] Kirsten [facility] CARDIAC VERITO ADMITon 023 CK [Catalytic activity/Vol] 124 U/L Normal 39-308 [facility] Comment on above: Performed By: #### C MP, BNP, CMADM ####[facility] [address] [address]Dr[address] Kirsten [facility] CK.MB [Mass/Vol] 1.12 ng/mL Normal <=3.60 [facility] Comment on above: Performed By: #### C MP, BNP, CMADM ####[facility] [address] [id number] Harding HSTROP 5.0 pg/mL Normal 4.0-76.1 [facility] Comment on above: Result Comment: CUT- OFF POINTS HAVE BEEN ESTABLISHED BASED ON THE FOURTH UNIVERSAL DEFINITIONS OF MYOCARDIAL INFARCTION. THE UPPER REFERENCE LIMIT (URL) OF TROPONIN, DEFINED THE 99TH PERCENTILE OF cTnI DISTRIBUTION IN A REFERENCE POPULATION, HAS BEEN CONFIRMED THE DECISION THRESHOLD FOR CA DIAGNOSIS. Performed By: #### C MP, BNP, CMADM ####[facility] [address] [address]Dr. Kirsten Harding CHRISTEL 28 ng/mL Normal 16-96 [facility] Comment on above: Performed By: #### C MP, BNP, CMADM ####[facility] [address] [address]Dr. Kirsten Harding CBC AUTO DIFFon 08-11-2022 BASO # 0.1 103/ul Normal 0.0-0.1 [facility] Comment on above: Performed By: #### C BC #### [facility] [address] [address] [address] Kirsten Harding Basophils/100 WBC (Bld) 0.6 % Normal 0.2-2.0 [facility] Comment on above: Performed By: #### C BC #### [facility] [address] [address] [address] Kirsten Harding EO # 0.3 103/ul Normal 0.0-0.7 [facility] Comment on above: Performed By: #### C BC #### [facility] [address] [address] [address] Kirsten Harding Eosinophils/100 WBC (Bld) 2.6 % Normal 0.9-7.0 [facility] Comment on above: Performed By: #### C BC #### [facility] [address] [address] [address] Kirsten Harding Erythrocyte distribution width (RBC) [Ratio] 12.4 % Normal 11.0-15.0 [facility] Comment on above: Performed By: #### C BC #### [facility] [address] [place] [address] Dr. Kirsten Harding Hematocrit (Bld) [Volume fraction] 50.7 % Normal 42.0-54.0 [facility] Comment on above: Performed By: #### C BC #### [facility] [address] [place] [address] Dr. Kirsten Harding Hemoglobin (Bld) [Mass/Vol] 18.6 g/dL Critically high 14.0-18.0 [facility] Comment on above: Performed By: #### C BC #### [facility] [address] [place] [address] Dr. Kirsten Harding IG # 0.05 10e3/ul Critically high 0.00-0.03 [facility] Comment on above: Performed By: #### C BC #### [facility] [address] [place] [address] Dr. Kirsten Harding IG % 0.5 % Normal 0.0-0.5 [facility] Comment on above: Performed By: #### C BC #### [facility] [address] [place] [address] Dr. Kirsten Harding LYMPH # 3.5 103/ul Normal 1.2-3.8 [facility] Comment on above: Performed By: #### C BC #### [facility] [address] [place] [address] Dr. Kirsten Harding Lymphocytes/100 WBC (Bld) 33.7 % Normal 20.5-60.0 [facility] Comment on above: Performed By: #### C BC #### [facility] [address] [place] [address] Dr. Kirsten Harding MANUAL DIFF REQ NO Normal [facility] Comment on above: Performed By: #### C BC #### [facility] [address] [place] [address] Dr. Kirsten Harding MCH (RBC) [Entitic mass] 29.7 pg Normal 25.9-34.0 [facility] Comment on above: Performed By: #### C BC #### [facility] [address] [place] [address] Dr. Kirsten Harding MCHC (RBC) [Mass/Vol] 36.7 g/dL Critically high 29.9-35.2 [facility] Comment on above: Performed By: #### C BC #### [facility] [address] [place] [address] Dr. Kirsten Harding MCV (RBC) [Entitic vol] 81.0 fL Normal 80.0-94.0 [facility] Comment on above: Performed By: #### C BC #### [facility] [address] [place] [address] Dr. Kirsten Harding MONO # 0.7 103/ul Normal 0.3-0.8 [facility] Comment on above: Performed By: #### C BC #### [facility] [address] [place] [address] Dr. Kirsten Harding Monocytes/100 WBC (Bld) 6.4 % Normal 1.7-12.0 [facility] Comment on above: Performed By: #### C BC #### [facility] [address] [place] [address] Dr. Kirsten Harding NEUT # 5.8 103/ul Normal 1.4-6.5 [facility] Comment on above: Performed By: #### C BC #### [facility] [address] [place] [address] Dr. Kirsten Harding Neutrophils/100 WBC (Bld) 56.2 % Normal 43.0-75.0 [facility] Comment on above: Performed By: #### C BC #### [facility] [address] [place] [address] Dr. Kirsten Harding Platelet mean volume (Bld) [Entitic vol] 10.4 fL Normal 9.5-13.5 [facility] Comment on above: Performed By: #### C BC #### [facility] [address] [place] [address] Dr. Kirsten Harding PLT 184 103/ul Normal 150-450 [facility] Comment on above: Performed By: #### C BC #### [facility] [address] [place] [address] Dr. Kirsten Harding RBC 6.26 106/ul Critically high 4.70-6.10 [facility] Comment on above: Performed By: #### C BC #### [facility] [address] [place], [place] [address] Dr. Kirsten Harding WBC 10.3 103/ul Normal 4.0-11.0 [facility] Comment on above: Performed By: #### C BC #### [facility] [address] [place], [place] [address] STROKE HEAD WOon 08-12-[address] STROKE HEAD WO EXAM: CT [...] by: CHRISTIN SEBASTIAN Date: 2022-08-11 01:40 Normal [facility] CTA NECK WO W CONon 08-12-19 23 [...] by: CHRISTIN SEBASTIAN Date: 2022-08-11 02:45 Normal [facility] CULTURE BLOODon 08-11-2022 Microscopic examination of blood, culture Culture Observations: NO GROWTH AT 5 DAYS. Normal [facility] Comment on above: Performed By: #### B LDCX2 ####[facility] [address] [id number] Kirsten Harding Microscopic examination of blood, culture Culture Observations: NO GROWTH AT 5 DAYS. Normal [facility] Comment on above: Performed By: #### B LDCX1 ####[facility] [address] [place], [place] [address]ZfSoniya Harding [facility]18 SARS-CoV-2 (COVID-19) RNA ANGELA+probe Ql (Unsp spec) Not detected Normal NOT DETECTED [facility] Comment on above: Result Comment: When diagnostic [...] for this test is supported by the [place] of Health and Human Service's declaration that [...] longer be used). Performed By: #### C VDTB #### [facility] [address] [address] [address] Kirsten Harding LACTATE/LACTIC ACIDon 2022 Lactate [Moles/Vol] 1.4 mmol/L Normal 0.4-2.0 [facility] Comment on above: Performed By: #### L ACT #### [facility] [address] [place], [place] [address] Dr. Kirsten Harding Lactate [Moles/Vol] 5.2 mmol/L Critically high 0.4-2.0 [facility] Comment on above: Performed By: #### L ACT ####[facility] [address] [place], [place] [address]JaDr. Kirsten Harding PH VENOUS BLOODon 08-11-2022 PCO2 VENOUS 33.9 mmHg Critically low 40.0-52.0 [facility] Comment on above: Performed By: #### P HVEN #### [facility] [address] [place], [place] [address] Dr. Kirsten Harding pH VENOUS 7.443 Critically high 7.330-7.430 [facility] Comment on above: Performed By: #### P HVEN #### [facility] [address] [place] [address] Dr. Kirsten Harding POINT OF CARE GLUCOSEon 07-18 Glucose [Mass/Vol] 203 mg/dL Critically high 74-106 [facility] Comment on above: Performed By: #### P OCGLUC #### [facility] [address] [place] [address] Dr. Kirsten Harding PROF 14(COMP METB)on 023 Albumin [Mass/Vol] 3.9 g/dL Normal 3.4-5.0 [facility] Comment on above: Performed By: #### C MP, BNP, CMADM #### [facility] [address] [place] [address] Dr. Kirsten Harding Albumin/Globulin [Mass ratio] 1.1 {ratio} Normal [facility] Comment on above: Performed By: #### C MP, BNP, CMADM #### [facility] [address] [place] [address] Dr. Kirsten Harding ALP [Catalytic activity/Vol] 77 U/L Normal 46-116 [facility] Comment on above: Performed By: #### C MP, BNP, CMADM #### [facility] [address] [place] [address] Dr. Kirsten Harding ALT [Catalytic activity/Vol] 54 U/L Normal 16-63 [facility] Comment on above: Performed By: #### C MP, BNP, CMADM #### [facility] [address] [place] [address] Dr. Kirsten Harding Anion gap [Moles/Vol] 18.3 mmol/L Normal [facility] Comment on above: Performed By: #### C MP, BNP, CMADM #### [facility] [address] [place] [address] Dr. Kirsten Harding AST [Catalytic activity/Vol] 28 U/L Normal 15-37 [facility] Comment on above: Performed By: #### C MP, BNP, CMADM #### [facility] [address] [place] [address] Dr. Kirsten Harding Bilirubin [Mass/Vol] 0.4 mg/dL Normal 0.2-1.0 [facility] Comment on above: Performed By: #### C MP, BNP, CMADM #### [facility] [address] [address] [address] Kirsten Harding Calcium [Mass/Vol] 8.8 mg/dL Normal 8.5-10.1 [facility] Comment on above: Performed By: #### C MP, BNP, CMADM #### [facility] [address] [address] [address] Kirsten Harding Chloride [Moles/Vol] 103 mmol/L Normal 98-107 [facility] Comment on above: Performed By: #### C MP, BNP, CMADM #### [facility] [address] [place] [address] Dr. Kirsten Harding CO2 [Moles/Vol] 19.9 mmol/L Critically low 21.0-32.0 [facility] Comment on above: Performed By: #### C MP, BNP, CMADM #### [facility] [address] [place] [address] Dr. Kirsten Harding Creatinine [Mass/Vol] 0.95 mg/dL Normal 0.70-1.30 [facility] Comment on above: Performed By: #### C MP, BNP, CMADM #### [facility] [address] [place] [address] Dr. Kirsten Harding EGFR-AF HONDURAN >60 Normal >=60 [facility] Comment on above: Performed By: #### C MP, BNP, CMADM #### [facility] [address] [place] [address] Dr. Kirsten Harding EGFR-NON AF HONDURAN >60 Normal >=60 [facility] Comment on above: Performed By: #### C MP, BNP, CMADM #### [facility] [address] [place] [address] Dr. Kirsten Harding Globulin (S) [Mass/Vol] 3.5 g/dL Normal [facility] Comment on above: Performed By: #### C MP, BNP, CMADM #### [facility] [address] [place] [address] Dr. Kirsten Harding Glucose [Mass/Vol] 212 mg/dL Critically high 74-106 [facility] Comment on above: Performed By: #### C MP, BNP, CMADM #### [facility] [address] [address] [address] Kirsten Harding Potassium [Moles/Vol] 3.2 mmol/L Critically low 3.5-5.1 [facility] Comment on above: Performed By: #### C MP, BNP, CMADM #### [facility] [address] [address] [address] Kisrten Harding Protein [Mass/Vol] 7.4 g/dL Normal 6.4-8.2 [facility] Comment on above: Performed By: #### C MP, BNP, CMADM #### [facility] [address] [address] [address] Kirsten Harding Sodium [Moles/Vol] 138 mmol/L Normal 136-145 [facility] Comment on above: Performed By: #### C MP, BNP, CMADM #### [facility] [address] [address] [address] Kirsten Harding Urea nitrogen [Mass/Vol] 11.0 mg/dL Normal 7.0-18.0 [facility] Comment on above: Performed By: #### C MP, BNP, CMADM #### [facility] [address] [address] [address] Kirsten Harding Urea nitrogen/Creatinine [Mass ratio] 11.6 mg/mg Normal [facility] Comment on above: Performed By: #### C MP, BNP, CMADM #### [facility] [address] [address] [address] Kirsten Harding PROTIMEon 08-11-2022 INR Coag (PPP) [Relative time] 0.97 {INR} Normal [facility] Comment on above: Performed By: #### P TT, PT ####[facility] [id number] [address]Dr. Kirsten Harding INR GUIDELINES SEE BELOW Normal [facility] Comment on above: Result Comment: JAHAIRA RED INR: 2.0 - 3.0 CONDITIONS NOT LISTED BELOW 2.5 - 3.5 FOR PROSTHETIC HEART VALVE REPLACEMENT 2.5 - 3.5 RECURRENT THROMBOSIS Performed By: #### P TT, PT ####[facility] [id number] [id number]. Kirsten Harding PT Coag (PPP) [Time] 10.3 s Normal 9.0-11.6 [facility] Comment on above: Performed By: #### P TT, PT ####[facility] [id number] [id number]. Kirsten Harding PTTon 08-11-2022 aPTT Coag (Bld) [Time] 23.6 s Normal 22.3-36.2 [facility] Comment on above: Performed By: #### P TT, PT ####[facility] [id number] [address]Dr. Kirsten Harding XR CHEST 1 Von 08-11-2022 [...] by: NIKKI MCINTOSH Date: 2022-08-11 03:04 Normal [facility] Vital Signs Date Time Vital Sign Value Performing Clinician Rubi wilkerson 03-09-2024 10:05-0400 Body height 170.2 cm Pmh 1 [facility] 03-09-2024 10:05-0400 Body mass index (BMI) [Ratio] 33.52 kg/m2 Pmh 1 [facility] 03-09-2024 10:05-0400 Body weight 97.07 kg Pmh 1 [facility] 01-29-2024 14:52-0400 Body height 170.2 cm Dayna Whitman APRN-TUNNELLER Work Phone: [facility] 01-29-2024 14:52-0400 Body mass index (BMI) [Ratio] 34.77 kg/m2 Dayna Whitman AUTOMATIC PILOT MECHANIC-TUNNELLER Work Phone: [facility] 01-29-2024 14:52-0400 Body weight 100.7 kg Dayna Whitman AUTOMATIC PILOT MECHANIC-TUNNELLER Work Phone: [facility] 01-29-2024 14:52-0400 Diastolic blood pressure 95 mm[Hg] Dayna Whitman AUTOMATIC PILOT MECHANIC-TUNNELLER Work Phone: [facility] 01-29-2024 14:52-0400 Heart rate 97 /min Dayna Whitman AUTOMATIC PILOT MECHANIC-TUNNELLER Work Phone: [facility] 01-29-2024 14:52-0400 Systolic blood pressure 162 mm[Hg] Dayna Whitman AUTOMATIC PILOT MECHANIC-TUNNELLER Work Phone: [facility] 12-03-2023 09:42-0400 Body height 170.2 cm Pmh 1 [facility] 12-03-2023 09:42-0400 Body mass index (BMI) [Ratio] 34.46 kg/m2 Pmh 1 [facility] 12-03-2023 09:42-0400 Body weight 99.79 kg Pmh 1 [facility] 12-02-2023 11:57-0400 Body mass index (BMI) [Ratio] 34.55 kg/m2 Dayna Whitman AUTOMATIC PILOT MECHANIC-TUNNELLER Work Phone: [facility] 12-02-2023 11:57-0400 Body weight 100.06 kg Dayna Whitman AUTOMATIC PILOT MECHANIC-TUNNELLER Work Phone: [facility] 12-02-2023 11:57-0400 Diastolic blood pressure 96 mm[Hg] Dayna Whitman AUTOMATIC PILOT MECHANIC-TUNNELLER Work Phone: [facility] 12-02-2023 11:57-0400 Systolic blood pressure 155 mm[Hg] Dayna Whitman AUTOMATIC PILOT MECHANIC-TUNNELLER Work Phone: [facility] Encounters Encounter Date Encounter Type Care Provider Facility Start: 08-07-2024 End: 08-07-2024 ambulatory [facility] Start: 05-07-2024 End: 05-07-2024 ambulatory [facility] Start: 05-07-2024 Encounter for genera l adult medical examination without abnormal findings [facility] Start: 03-19-2024 End: 03-19-2024 Telephone encounter Elizabeth Mcnally CMA [facility] Start: 03-15-2024 End: 03-15-2024 Evaluation and management of inpatient MANDI FELIBERTO [facility] Start: 03-09-2024 End: 03-09-2024 ambulatory Pm Pat Phone Call Provider 1 [facility] Admit Start: 01-29-2024 End: 01-29-2024 Patient encounter procedure Dayna Whitman AUTOMATIC PILOT MECHANIC-TUNNELLER Work Phone: [facility] Comment on above: Encounter for screen ing colonoscopy (Primary Dx) Start: 01-29-2024 End: 01-29-2024 ambulatory [facility] Start: 12-10-2023 End: 12-10-2023 Telephone encounter Elizabeth Mcnally CMA [facility] General Surgery Start: 12-09-2023 End: 12-09-2023 Evaluation and management of inpatient ALBER ESCOBAR [facility] Start: 12-08-2023 End: 12-09-2023 Evaluation and management of inpatient MANDI JOHNSON [facility] Start: 12-03-2023 End: 12-03-2023 ambulatory [facility] Phone Call Provider 1 [facility] Pre Admit Start: 12-03-2023 End: 12-03-2023 ambulatory [facility] Start: 12-02-2023 End: 12-02-2023 Patient encounter procedure Dayna Whitman AUTOMATIC PILOT MECHANIC-TUNNELLER Work Phone: [facility] Comment on above: Encounter for screen ing colonoscopy (Primary Dx) Start: 12-02-2023 End: 12-02-2023 ambulatory DAYNA WHITMAN [facility] Start: 11-12-2023 End: 11-17-2023 Telephone encounter Dayna Whitman AUTOMATIC PILOT MECHANIC-TUNNELLER Work Phone: [facility] General Surgery Start: 08-11-2022 End: 08-11-[address] SAEID PARKER Facility:H1 Procedures Date Procedure Procedure Detail Performing Clinician Start: 03-15-2024 Colonoscopy Elizabeth Eddie ia ADOBE DEVELOPER Start: 01-29-2024 Follow-up visit Follow-up DAYNA WHITMAN Start: 12-08-2023 Colonoscopy Elizabeth Eddie ia ADOBE DEVELOPER Plan of Treatment Date Care Activity Detail Author Start: 03-15-2029 Screening for malign ant neoplasm of colon Colonoscopy [facility] Start: 12-07-2028 Screening for malign ant neoplasm of colon Colonoscopy [facility] Start: 08-29-2026 DTaP,Tdap and Td Vac cines (2 - Td or Tdap) DTaP,Tdap and Td Vaccines (2 - Td or Tdap) [facility] Start: 03-15-2025 Adult BMI Screening Adult BMI Screen ing [facility] Start: 03-15-2025 Tobacco Screening Tobacco Screening [facility] Start: 02-11-2025 Tobacco Screening Tobacco Screening [facility] Start: 01-28-2025 Adult BMI Screening Adult BMI Screen ing [facility] Start: 01-28-2025 Tobacco Screening Tobacco Screening [facility] Start: 12-07-2024 Adult BMI Screening Adult BMI Screen ing [facility] Start: 12-07-2024 Tobacco Screening Tobacco Screening [facility] Start: 12-02-2024 Adult BMI Screening Adult BMI Screen ing [facility] Start: 12-02-2024 Tobacco Screening Tobacco Screening [facility] Start: 12-01-2024 Adult BMI Screening Adult BMI Screen ing [facility] Start: 12-01-2024 Tobacco Screening Tobacco Screening [facility] Start: 03-15-2024 End: 03-15-2024 Admission to same day surgery center 03/15/2024 8:00 AM EDT - 03/15/2024 8:30 AM EDT Surgery [facility] [address] [place] [id number] Mandi Johnson, DO [address] [place], [place] [id number] COLONOSCOPY DIAGNOSTIC / SCREENING [32357 (CPT )] [facility] Comment on above: COLONOSCOPY DIAGNOST IC / SCREENING [75657 (CPT )] Start: 03-15-2024 End: 03-15-2024 Anesthesia consultation 03/15/2024 8:00 AM EDT Anesthesia Event [facility] Surgery [address] [place] [phone] Brennen Arguello, DO [address] [place] [address] [facility] Start: 03-15-2024 End: 03-15-2024 Colonoscopy flx dx w/collj spec when pfrmd COLONOSCOPY DIAGNOSTIC / SCREENING Screen for colon cancer 03/15/2024 8:00 AM EDT [facility] Start: 03-15-2024 Subsequent hospital visit by physician 03/15/2024 8:00 AM EDT Hospital Encounter [facility] Surgery [address] [place] [phone] Mandi Johnson, DO [address] [place], [place] [id number] [facility] Start: 03-09-2024 End: 03-09-2024 ambulatory 03/09/2024 4:10 PM EDT Support Visit [facility] - Pre Admit [address] [place] [phone] [facility] Pre Admit Start: 01-18-2024 Influenza vaccination Influenza Vacc ine [facility] Start: 12-08-2023 End: 12-08-2023 Admission to same day surgery center 12/08/2023 7:30 AM EDT - 12/08/2023 8:00 AM EDT Surgery [facility] [address] [facility] [address] Mandi Johnson DO [address] [place] [address] COLONOSCOPY DIAGNOSTIC / SCREENING [94159 (CPT )] [facility] Comment on above: COLONOSCOPY DIAGNOST IC / SCREENING [63397 (CPT )] Start: 12-08-2023 End: 12-08-2023 Colonoscopy flx dx w/collj spec when pfrmd COLONOSCOPY DIAGNOSTIC / SCREENING Screen for colon cancer 12/08/2023 7:30 AM EDT [facility] Start: 12-08-2023 Subsequent hospital visit by physician 12/08/2023 7:30 AM EDT Hospital Encounter [facility] [address] [place] [address] Mandi Johnson, [address] [place] [address] [facility] Start: 12-03-2023 End: 12-03-2023 ambulatory 12/03/2023 2:20 PM EDT Support Visit [facility] Admit [address] [place] [phone] [facility] Ad[facility] Start: 11-28-2023 End: 11-28-2023 Patient encounter procedure 11/28/2023 9:30 AM EDT Office Visit [facility] General Surgery [address] [place] [id number] Dayna Whitman, KEO-TUNNELLER [address] [place], [place] [id number] [facility] Start: 11-24-2019 Administration of varicella zoster vaccine Zoster (Shingles) Vaccine (1 of 2) [facility] Start: 11-24-1987 Adult BMI Follow Up Plan Adult BMI Follow Up Plan [facility] Start: 11-24-1987 Adult BMI Screening Adult BMI Screen ing [facility] Start: 1981 [facility]: 1981 Tobacco [facility]ening [facility] End: 12-01-2024 Colonoscopy Colonoscopy GI Routine Encounter for screening colonoscopy 1 Occurrences starting 12/02/2023 until 12/01/2024 [employer] Work Phone: Comment on above: 1 Occurrences starti ng 12/02/2023 until 12/01/2024 Payers Date Payer Category Payer [employer] - [employer] [id number] 2012 Unknown [employer] (O) [id number] 2012-Present [phone] [address] [place] [address] [id number] 1969 Unknown [id number] [id number]. 2.593 1969 Unknown [id number] [id number]. 2.1286 1969 Unknown [id number] 2.840.1.510876.3.579. 2.1286 1969 Unknown [id number] 2.16.840.1.842032.3.579. 2.6 1969 Unknown [id number] 2.16.840.1.082720.3.579. 2.6 1969 Unknown [id number] 2.16.840.1.139948.3.579. 2.6 1969 Unknown [id number] 2.16.840.1.531271.3.579. 2.6 1969 Unknown [id number] 2.16.840.1.607115.3.579. 2.6 1969 Unknown [id number] 2.16.840.1.552884.3.579. 2.1285 1969 Unknown [id number] 2.16.840.1.215128.3.579. 2.1285 1969 Unknown [id number] 2.16840.1.785505.3.579. 2.1285 1969 Unknown [id number] [id number]. 2.1286 1959 Unknown [id number] Social History Date Type Detail Facility Start: 09-10-2019 Tobacco smoking stat [facility] Never smoked tobacco [facility] Start: 09-10-2019 Tobacco use and exposure Smokeless tobacco non-user [facility] Start: 09-10-2019 Alcoholic beverage intake Ex-drinker (finding) [facility] Start: 09-10-2019 End: 06-29-2020 History of Social function [facility] Start: 09-10-2019 End: 06-29-2020 Tobacco use panel [facility] Childcare Unknown [facility] Start: 1970 Sex assigned at Not on file P [facility] Start: 12-02-2023 End: 03-16-2024 Alcoholic beverage intake Current drinker of alcohol (finding) [facility] Start: 12-02-2023 Alcohol Comment weekends [facility] Start: 12-22-2014 Sex Male (finding) [facility] Clinical Notes 11-12-2023 to 03-19-2024 Telephone Encounter - Elizabeth Mcnally CMA - 03/19/2024 11:50 AM EDTTelephone Encounter - Elizabeth Mcnally CMA - 03/19/2024 11:50 AM EDTTelephone Encounter - Elizabeth Mcnally CMA - 03/19/2024 11:50 AM EDT Note Date & Type Note Facility 03-19-2024 Miscellaneous Notes ----- Message from Dr. Mandi Johnson, sent at 03/18/2024 4:31 PM EDT ----- Please let pt. Know that polyp was precancerous but benign and I recommend surveillance scope in 5 years unless problems. Thanks, Dr. Plascencia Spoke with patient regarding pathology results. Patient verbally understood with no further questions. Recall to be put in chart. documented in this encounter [facility] 03-19-2024 Telephone encounter Note ----- Message from Dr. Mandi Johnson, sent at 03/18/2024 4:31 PM EDT ----- Please let pt. Know that polyp was precancerous but benign and I recommend surveillance scope in 5 years unless problems. Thanks, Dr. Plascencia [facility] 03-19-2024 Telephone encounter Note Spoke with patient regarding pathology results. Patient verbally understood with no further questions. Recall to be put in chart. [facility] 03-09-2024 Nurse Note Preoperative Education Checklist- General Surgery date: 03/15/24 Surgery time: 8a Arrival time: 610a 1. Bring a photo ID and your insurance card with you the day of surgery. You will check in at the main lobby of the [facility]- registration desk is straight ahead as soon as you walk in. Tell them you are here for surgery. 2. If you have a Living Will/Durable Power of Real Estate Appraiser Supervisor for Health Care that is not on [...] after you have bathed. 5. NO nail swazi/acrylic on at least one finger. If you are having a hand, wrist or foot surgery then all nail swazi and artificial/acrylic nails must be removed from [...] please call the Preadmission Testing office at [phone], Mon.-Fri. 7 a.m.-3 p.m. Leave a voicemail [...] Stop taking 0 days prior to procedure [employer] [facility] 03-09-2024 Miscellaneous Notes Preoperative Education Checklist- General Surgery date: 03/15/24 Surgery time: 8a Arrival time: 610a 1. Bring a photo ID and your insurance card with you the day of surgery. You will check in at the main lobby of the [facility]- registration desk is straight ahead as soon as you walk in. Tell them you are here for surgery. 2. If you have a Living Will/Durable Power of Real Estate Appraiser Supervisor for Health Care that is not on [...] after you have bathed. 5. NO nail swazi/acrylic on at least one finger. If you are having a hand, wrist or foot surgery then all nail swazi and artificial/acrylic nails must be removed from [...] please call the Preadmission Testing office at [phone], Mon.-Fri. 7 a.m.-3 p.m. Leave a voicemail [...] prior to procedure documented in this encounter [facility] 01-29-2024 History of Presen t illness Narrative Images from the original note were not included. Chief Complaint: Colon cancer screening History of Present Illness Florencia Coffey is a 53 y.o. male who presents to the office for colon cancer screening. He underwent colonoscopy 12/08/[address] Johnson. One tubular adenoma was removed in the transverse colon. It was recommended he follow-up in 1 month due to suboptimal bowel preparation. He is status post Ron's procedure for diverticulitis and colostomy reversal. He denies diarrhea, constipation, abdominal pain, melena, hematochezia, unexplained weight loss. There is no family history of colon cancer. Review of Systems Constitutional: Negative for fever and unexpected weight change. HENT: Negative for trouble swallowing. Respiratory: Negative for shortness of breath. Cardiovascular: Negative for chest pain. Gastrointestinal: Negative for nausea, vomiting, abdominal pain, diarrhea, constipation, blood in stool and black tarry stool. Genitourinary: Negative for dysuria and difficulty urinating. Musculoskeletal: Negative for gait problem. Skin: Negative for rash and wound. Neurological: Negative for dizziness, weakness and light-headedness. Hematological: Does not bruise/bleed easily. Psychiatric/Behavioral: Negative for confusion. Past Medical History: Diagnosis Date Bowel obstruction ([facility]) Diabetes mellitus type 2, controlled ([facility]) Diverticulitis of colon Fractures Hypertension Insomnia Visual impairment Past Surgical History: Procedure Laterality Date BACK SURGERY L4-5, fusion COLON SURGERY 2018 bowel resection with colostomy COLONOSCOPY COLONOSCOPY DIAGNOSTIC / SCREENING N/A 12/08/2023 Performed by Mandi Johnson DO at [facility] COLOSTOMY CLOSURE HAND SURGERY Left No Known Allergies Current Outpatient Medications: diazePAM (VALIUM) 5 mg tablet, Take 1 tablet (5 mg total) by mouth in the morning and 1 tablet (5 mg total) before bedtime., Disp: , Rfl: fexofenadine (AMANDO) 180 mg tablet, Take 1 tablet (180 mg total) by mouth in the morning., Disp: , Rfl: fluticasone propionate (FLONASE) 50 mcg/actuation nasal spray, Administer 1 spray into each nostril in the morning., Disp: , Rfl: gabapentin (NEURONTIN) 300 mg capsule, Take 1 capsule (300 mg total) by mouth 3 (three) times a day., Disp: , Rfl: glipiZIDE (GLUCOTROL) 5 mg tablet, Take 1 tablet (5 mg total) by mouth in the morning., Disp: , Rfl: lisinopriL (PRINIVIL,ZESTRIL) 10 mg tablet, Take 1 tablet (10 mg total) by mouth in the morning., Disp: , Rfl: omeprazole (PriLOSEC) 40 mg capsule, Take 1 capsule (40 mg total) by mouth in the morning., Disp: , Rfl: oxyCODONE-acetaminophen (PERCOCET) 7.5-325 mg per tablet, Take 1 tablet by mouth in the morning and 1 tablet before bedtime., Disp: , Rfl: promethazine (PHENERGAN) 25 mg suppository, Insert 1 suppository (25 mg total) into the rectum every 6 (six) hours as needed for nausea or vomiting., Disp: , Rfl: semaglutide (OZEMPIC) 0.25 mg or 0.5 mg (2 mg/3 mL) pen injector, Inject 0.5 mg under the skin every 7 days., Disp: , Rfl: sertraline (ZOLOFT) 50 mg tablet, Take 1.5 tablets (75 mg total) by mouth in the morning., Disp: , Rfl: tiZANidine (ZANAFLEX) 4 mg tablet, Take 1 tablet (4 mg total) by mouth every 6 (six) hours as needed for muscle spasms., Disp: , Rfl: zolpidem CR (AMBIEN CR) 12.5 mg CR tablet, Take 1 tablet (12.5 mg total) by mouth nightly as needed for sleep., Disp: , Rfl: sod sulf-pot chloride-mag sulf 1.479-0.188- 0.225 gram tablet, Please see instructional sheet given by physicians office., Disp: 24 tablet, Rfl: 0 Social History Socioeconomic History Marital status: Spouse name: Not on file Number of children: Not on file Years of education: Not on file Highest education level: Not on file Occupational History Not on file Tobacco Use Smoking status: Never Smokeless tobacco: Never Vaping Use Vaping status: Never Used Substance and Sexual Activity Alcohol use: Yes Comment: weekends Drug use: Never Sexual activity: Not Currently Partners: Female Other Topics Concern Not on file Social History Narrative Not on file Social Determinants of Health Financial Resource Strain: Not on file Food Insecurity: Unknown (01/29/2024) Hunger Screening Food Insecurity - Worry: Never True Food Insecurity - Inability: Not on file Transportation Needs: Not on file Physical Activity: Not on file Stress: Not on file Social Connections: Not on file Interpersonal Safety: Not on file Housing Instability: Not on file Family History Problem Relation Age of Onset No Known Problems Mother Hyperlipidemia Father Diabetes Father Heart failure Father Objective Physical Exam Constitutional: General: He is not in acute distress. Appearance: Normal appearance. He is not ill-appearing. HENT: Head: Normocephalic and atraumatic. Mouth/Throat: Mouth: Mucous membranes are moist. Eyes: Pupils: Pupils are equal, round, and reactive to light. Cardiovascular: Rate and Rhythm: Normal rate. Pulmonary: Effort: Pulmonary effort is normal. No respiratory distress. Abdominal: General: There is no distension. Palpations: Abdomen is soft. Musculoskeletal: General: Normal range of motion. Skin: General: Skin is warm and dry. Neurological: Mental Status: He is alert and oriented to person, place, and time. Mental status is at baseline. Vital Signs: Blood pressure (!) 162/95, pulse 97, height 170.2 cm (5' 7 ), weight 100.7 kg (222 lb). Respiratory Source: No data recorded Admission Weight: Weight: 100.7 kg (222 lb) Labs Lab Results Component Value Date WBC 6.4 09/10/2019 HGB 18.0 (H) 09/10/2019 HCT 51.5 (H) 09/10/2019 MCV 85 09/10/2019 PLT 145 (L) 09/10/2019 Lab Results Component Value Date GLU 147 (H) 09/10/2019 CALCIUM 9.2 09/10/2019 K 3.8 09/10/2019 CO2 22 09/10/2019 CL 108 09/10/2019 BUN 12 09/10/2019 CREATININE 0.80 09/10/2019 No results found for: AMYLASE Lab Results Component Value Date LIPASE 36 02/23/2016 Lab Results Component Value Date ALT 53 (H) 09/10/2019 AST 34 09/10/2019 ALKPHOS 53 09/10/2019 Lab Results Component Value Date INR 1.0 02/23/2016 PROTIME 11.4 02/23/2016 Assessment Screening colonoscopy S/p Ron's procedure for diverticulitis and colostomy reversal in 2013 Plan Colonoscopy with possible biopsy and/or polypectomy. Risks, benefits, and alternatives discussed with patient. Educated on bowel evacuation preparation. Patient verbalizes understanding and wishes to proceed. Evaluation included: Preparing to see the patient (e.g., review of tests) Obtaining and/or reviewing separately obtained history Performing a medically appropriate examination and/or evaluation Counseling and educating the patient/family/caregiver Referring and communicating with other health healthcare administrative assistant Encounter for screening colonoscopy [Z12.11] ABDULKADIR VELARDE [facility] General [facility] [place] This note was created with the assistance of a speech recognition program. While intending to generate a timely document that accurately reflects the content of the visit, no guarantee can be provided that every grammatical or spelling mistake has been or will be identified or corrected. Thank you for your understanding. ABDULKADIR Velarde 01/29/24 0990 documented in this encounter [facility] 12-10-2023 Miscellaneous Notes ----- Message from Dr. Mandi Johnson DO sent at 12/10/2023 12:51 PM EDT ----- Please let patient know he had a precancerous tubular adenoma and I recommend surveillance colonoscopy in 5 years unless he has problems. ThanksDr. Stephens Spoke with patient regarding pathology results. Patient verbally understood with no further questions. Recall to be put in chart. documented in this encounter [facility] [facility] [employer] [facility] 12-10-2023 Telephone encounter Note ----- Message from Dr. Mandi Johnson DO sent at 12/10/2023 12:51 PM EDT ----- Please let patient know he had a precancerous tubular adenoma and I recommend surveillance colonoscopy in 5 years unless he has problems. Thanks, Dr. Stephens [facility] [employer] [facility] 12-10-2023 Telephone encounter Note Spoke with patient regarding pathology results. Patient verbally understood with no further questions. Recall to be put in chart. [facility] 12-03-2023 Nurse Note Preoperative Education Checklist- General Surgery date: 12/08/23 Surgery time: 730a Arrival time: 610a 1. Bring a photo ID and your insurance card with you the day of surgery. You will check in at the main lobby of the [facility]- registration desk is straight ahead as soon as you walk in. Tell them you are here for surgery. 2. If you have a Living Will/Durable Power of Real Estate Appraiser Supervisor for Health Care that is not on [...] after you have bathed. 5. NO nail swazi/acrylic on at least one finger. If you are having a hand, wrist or foot surgery then all nail swazi and artificial/acrylic nails must be removed from [...] please call the Preadmission Testing office at [phone], Mon.-Fri. 7 a.m.-3 p.m. Leave a voicemail [...] capsule Take morning of procedure if needed oxyCODONE-acetaminophen (PERCOCET) 7.5-325 mg per tablet Stop taking 0 days prior to procedure promethazine (PHENERGAN) 25 mg suppository Stop taking 0 days prior to procedure semaglutide (OZEMPIC) 0.25 mg or 0.5 mg (2 mg/3 mL) pen injector Stop now sertraline (ZOLOFT) 50 mg tablet Stop taking 0 days prior to procedure sod sulf-pot chloride-mag sulf 1.479-0.188- 0.225 gram tablet Check with prescribing doctor for instructions tiZANidine (ZANAFLEX) 4 mg tablet Stop taking 0 days prior to procedure zolpidem CR (AMBIEN CR) 12.5 mg CR tablet Stop taking 0 days prior to procedure [facility] [employer] [facility] 12-03-2023 Miscellaneous Notes Preoperative Education Checklist- General Surgery date: 12/08/23 Surgery time: 730a Arrival time: 610a 1. Bring a photo ID and your insurance card with you the day of surgery. You will check in at the main lobby of the [facility]- registration desk is straight ahead as soon as you walk in. Tell them you are here for surgery. 2. If you have a Living Will/Durable Power of Real Estate Appraiser Supervisor for Health Care that is not on [...] after you have bathed. 5. NO nail swazi/acrylic on at least one finger. If you are having a hand, wrist or foot surgery then all nail swazi and artificial/acrylic nails must be removed from [...] please call the Preadmission Testing office at [phone], Mon.-Fri. 7 a.m.-3 p.m. Leave a voicemail [...] capsule Take morning of procedure if needed oxyCODONE-acetaminophen (PERCOCET) 7.5-325 mg per tablet Stop taking 0 days prior to procedure promethazine (PHENERGAN) 25 mg suppository Stop taking 0 days prior to procedure semaglutide (OZEMPIC) 0.25 mg or 0.5 mg (2 mg/3 mL) pen injector Stop now sertraline (ZOLOFT) 50 mg tablet Stop taking 0 days prior to procedure sod sulf-pot chloride-mag sulf 1.479-0.188- 0.225 gram tablet Check with prescribing doctor for instructions tiZANidine (ZANAFLEX) 4 mg tablet Stop taking 0 days prior to procedure zolpidem CR (AMBIEN CR) 12.5 mg CR tablet Stop taking 0 days prior to procedure documented in this encounter [facility] [employer] 12-02-2023 History of Presen t illness Narrative Images from the original note were not included. Chief Complaint: Colon cancer screening History of Present Illness Florencia Coffey is a 53 y.o. male who presents to the office for colon cancer screening. His last colonoscopy was 10 years ago. He is status post Ron's procedure for diverticulitis and colostomy reversal in 2013. He denies diarrhea, constipation, abdominal pain, melena, hematochezia, unexplained weight loss. There is no family history of colon cancer. Review of Systems Constitutional: Negative for fever and unexpected weight change. HENT: Negative for trouble swallowing. Respiratory: Negative for shortness of breath. Cardiovascular: Negative for chest pain. Gastrointestinal: Negative for nausea, vomiting, abdominal pain, diarrhea, constipation, blood in stool and black tarry stool. Genitourinary: Negative for dysuria and difficulty urinating. Musculoskeletal: Negative for gait problem. Skin: Negative for rash and wound. Neurological: Negative for dizziness, weakness and light-headedness. Hematological: Does not bruise/bleed easily. Psychiatric/Behavioral: Negative for confusion. Past Medical History: Diagnosis Date Bowel obstruction ([facility]) Diabetes mellitus type 2, controlled ([facility]) Diverticulitis of colon Past Surgical History: Procedure Laterality Date BACK SURGERY COLON SURGERY COLOSTOMY CLOSURE HAND SURGERY No Known Allergies Current Outpatient Medications: diazePAM (VALIUM) 5 mg tablet, Take 1 tablet (5 mg total) by mouth in the morning and 1 tablet (5 mg total) before bedtime., Disp: , Rfl: fexofenadine (AMANDO) 180 mg tablet, Take 1 tablet (180 mg total) by mouth in the morning., Disp: , Rfl: fluticasone propionate (FLONASE) 50 mcg/actuation nasal spray, Administer 1 spray into each nostril in the morning., Disp: , Rfl: gabapentin (NEURONTIN) 300 mg capsule, Take 1 capsule (300 mg total) by mouth 3 (three) times a day., Disp: , Rfl: glipiZIDE (GLUCOTROL) 5 mg tablet, Take 1 tablet (5 mg total) by mouth in the morning., Disp: , Rfl: omeprazole (PriLOSEC) 40 mg capsule, Take 1 capsule (40 mg total) by mouth in the morning., Disp: , Rfl: oxyCODONE-acetaminophen (PERCOCET) 7.5-325 mg per tablet, Take 1 tablet by mouth in the morning and 1 tablet before bedtime. Max Daily Amount: 2 tablets., Disp: , Rfl: promethazine (PHENERGAN) 25 mg suppository, Insert 1 suppository (25 mg total) into the rectum every 6 (six) hours as needed for nausea or vomiting., Disp: , Rfl: semaglutide (OZEMPIC) 0.25 mg or 0.5 mg (2 mg/3 mL) pen injector, Inject 0.5 mg under the skin every 7 days., Disp: , Rfl: sertraline (ZOLOFT) 50 mg tablet, Take 1.5 tablets (75 mg total) by mouth in the morning., Disp: , Rfl: tiZANidine (ZANAFLEX) 4 mg tablet, Take 1 tablet (4 mg total) by mouth every 6 (six) hours as needed for muscle spasms., Disp: , Rfl: zolpidem CR (AMBIEN CR) 12.5 mg CR tablet, Take 1 tablet (12.5 mg total) by mouth nightly as needed for sleep., Disp: , Rfl: sod sulf-pot chloride-mag sulf 1.479-0.188- 0.225 gram tablet, Please see instructional sheet given by physicians office., Disp: 24 tablet, Rfl: 0 Social History Socioeconomic History Marital status: Spouse name: Not on file Number of children: Not on file Years of education: Not on file Highest education level: Not on file Occupational History Not on file Tobacco Use Smoking status: Never Smokeless tobacco: Never Vaping Use Vaping status: Never Used Substance and Sexual Activity Alcohol use: Yes Comment: weekends Drug use: Never Sexual activity: Defer Other Topics Concern Not on file Social History Narrative Not on file Social Determinants of Health Financial Resource Strain: Not on file Food Insecurity: Not on file Transportation Needs: Not on file Physical Activity: Not on file Stress: Not on file Social Connections: Not on file Interpersonal Safety: Not on file Housing Instability: Not on file History reviewed. No pertinent family history. Objective Physical Exam Constitutional: General: He is not in acute distress. Appearance: Normal appearance. He is not ill-appearing. HENT: Head: Normocephalic and atraumatic. Mouth/Throat: Mouth: Mucous membranes are moist. Eyes: Pupils: Pupils are equal, round, and reactive to light. Cardiovascular: Rate and Rhythm: Normal rate. Pulmonary: Effort: Pulmonary effort is normal. No respiratory distress. Abdominal: General: There is no distension. Palpations: Abdomen is soft. Tenderness: There is no abdominal tenderness. Musculoskeletal: General: Normal range of motion. Skin: General: Skin is warm and dry. Neurological: Mental Status: He is alert and oriented to person, place, and time. Mental status is at baseline. Vital Signs: Blood pressure (!) 155/96, weight 100.1 kg (220 lb 9.6 oz). Respiratory Source: No data recorded Admission Weight: Weight: 100.1 kg (220 lb 9.6 oz) Labs Lab Results Component Value Date WBC 6.4 09/10/2019 HGB 18.0 (H) 09/10/2019 HCT 51.5 (H) 09/10/2019 MCV 85 09/10/2019 PLT 145 (L) 09/10/2019 Lab Results Component Value Date GLU 147 (H) 09/10/2019 CALCIUM 9.2 09/10/2019 K 3.8 09/10/2019 CO2 22 09/10/2019 CL 108 09/10/2019 BUN 12 09/10/2019 CREATININE 0.80 09/10/2019 No results found for: AMYLASE Lab Results Component Value Date LIPASE 36 02/23/2016 Lab Results Component Value Date ALT 53 (H) 09/10/2019 AST 34 09/10/2019 ALKPHOS 53 09/10/2019 Lab Results Component Value Date INR 1.0 02/23/2016 PROTIME 11.4 02/23/2016 Assessment Screening colonoscopy S/p Ron's procedure for diverticulitis and colostomy reversal in 2013 Plan Colonoscopy with possible biopsy and/or polypectomy. Risks, benefits, and alternatives discussed with patient. Educated on bowel evacuation preparation. Patient verbalizes understanding and wishes to proceed. Evaluation included: Preparing to see the patient (e.g., review of tests) Obtaining and/or reviewing separately obtained history Performing a medically appropriate examination and/or evaluation Counseling and educating the patient/family/caregiver Referring and communicating with other health healthcare administrative assistant Encounter for screening colonoscopy [Z12.11] ABDULKADIR VELARDE [facility] [place] This note was created with the assistance of a speech recognition program. While intending to generate a timely document that accurately reflects the content of the visit, no guarantee can be provided that every grammatical or spelling mistake has been or will be identified or corrected. Thank you for your understanding. ABDULKADIR Velarde 12/02/23 1401 documented in this encounter [facility] 11-12-2023 Miscellaneous Notes Called Florencia regarding the screening colonoscopy referral that our office received from Dr Parker, was unable to leave a message as the voicemail has not been set up. Called Florencia regarding the referral that our office received, spoke to /Jacquelyn she said he was not home and to call his cell# [phone] or his work cell# [phone]. Called Florencia at [phone] and voicemail has not been set up yet. Called Florencia at [phone] and left message on voicemail to call the office back. Florencia called the office back and we scheduled him an appointment on 11/28/2023. documented in this encounter [facility] 11-12-2023 Telephone encounter Note Called Florencia regarding the screening colonoscopy referral that our office received from Dr Parker, was unable to leave a message as the voicemail has not been set up. [facility] 11-12-2023 Telephone encounter Note Called Florencia regarding the referral that our office received, spoke to /Jacquelyn she said he was not home and to call his cell# [phone] or his work cell# [phone]. Called Florencia at [phone] and voicemail has not been set up yet. Called Florencia at [phone] and left message on voicemail to call the office back. [facility] 11-12-2023 Telephone encounter Note Florencia called the office back and we scheduled him an appointment on 11/28/2023. [facility] Evaluation note Diagnosis Encounter for screening colonoscopy- Primary Screen for colon cancer Special screening for malignant neoplasms, colon [facility] Encounter for screening colonoscopy- Primary Screen for colon cancer Special screening for malignant neoplasms, colon documented in this encounter [facility] [employer] SystemInstructionsNot on filedocumented in this encounter [facility] SystemInstructionsNot on filedocumented in this encounter [facility] SystemInstructionsNot on filedocumented in this encounter [facility] [employer] SystemInstructionsNot on filedocumented in this encounter [facility] [employer] SystemInstructionsNot on filedocumented in this encounter [facility] Summary Purpose Family History No Family [...] PPG DATE CREATED AUTHOR AUTHOR'S ORGANIZ ATION 08/08/2024 [facility] Care Teams (unrecognized sec tion and content) [employer] Practitioner Relationship Specialty Start Date End Date Saeid Parker MD [address] [address] PCP - General Family Medicine 12/20/16 [employer] Practitioner Relationship Specialty Start Date End Date Saeid Parker MD [address] [address] PCP - General Family Medicine 12/20/16 [employer] Practitioner Relationship Specialty Start Date End Date Saeid Parker MD [address] [address] PCP - General Family Medicine 12/20/16 [employer] Practitioner Relationship Specialty Start Date End Date Saeid Parker MD [address] [phone] (Work) PCP - General Family Medicine 12/20/16 [employer] Practitioner Relationship Specialty Start Date End Date Saeid Parker MD [address] [address] PCP - General Family Medicine 12/20/16 [employer] Practitioner Relationship Specialty Start Date End Date Saeid Parker MD [address] [address] PCP - General Family Medicine 12/20/16 [employer] Practitioner Relationship Specialty Start Date End Date Saeid Parker MD [address] [address] PCP - General Family Medicine 12/20/16 Reason for Visit (unrecogniz ed section and content) Reason Comments Colon Cancer Screening Screening colon Reason Comments Follow-up Repeat colonoscopy, last colon 12/08/23, Update H&P FOR RECORDS PERTAINING TO PATIENTS WHO ARE [...] BE BASED ON THE PRIMARY CLINICAL RECORDS. [facility] [employer] [facility]. provides no warranty or guarantee of the accuracy or completeness of information in this document.
--- NOTE | 2024-08-13 16:53 | ED_ITS ---
HPI HPI - General Adult General Chief complaint: Weakness Stated complaint: BODY ACHES Time Seen by Provider: 08/13/24 16:37 Source: patient Mode of arrival: walk-in Limitations: no limitations History of Present Illness HPI narrative: Patient is a 53-year-old male with a history of type 2 diabetes on Ozempic who presents to the ER with concerns of generalized fatigue and bodyaches patient has had minimal nasal congestion and cough nonproductive. States his son and grandson had upper respiratory infections were placed on antibiotics and are doing better. Patient states he had blood work done last Friday and was notified that he had low vitamin D and was called in a prescription that is not yet ready from pharmacy. Patient notes he is experiencing generalized bodyaches feels fatigued and weak with activity. He denies any chest pain or overt shortness of breath. He denies any nausea vomiting or diarrhea. He denies any abdominal pain. Patient notes that his whole body hurts. He denies any dysuria. Patient did not get a flu vaccine this year. He did not take any medication prior to arrival Onset (ago): week(s) (1) Severity: moderate Quality: Reports aching Treatments prior to arrival: Reports none Related Data Home Medications ?Medication ?Instructions ?Recorded ?Confirmed diazepam 5 mg tablet 5 mg PO BID PRN anxiety 06/08/24 06/08/24 fluticasone propionate 50 2 spray intranasal Q12H PRN nasal 06/08/24 06/08/24 mcg/actuation nasal congestion spray,suspension gabapentin 300 mg capsule 300 mg PO Q8H 06/08/24 06/08/24 glipizide 5 mg tablet, extended 5 mg PO DAILY 06/08/24 06/08/24 release 24 hr oxycodone-acetaminophen 7.5 mg-325 1 tab PO Q12H PRN pain 06/08/24 06/08/24 mg tablet promethazine 25 mg tablet 25 mg PO Q6H PRN nausea and 06/08/24 06/08/24 vomiting semaglutide 0.25 mg or 0.5 mg (2 0.5 mg subcut .WEEKLY 06/08/24 06/08/24 mg/3 mL) subcutaneous pen injector (Ozempic) tizanidine 4 mg tablet 4 mg PO QDAY 06/08/24 06/08/24 zolpidem 12.5 mg tablet,extended 12.5 mg PO BEDTIME 06/08/24 06/08/24 release,multiphase Previous Rx's ?Medication ?Instructions ?Recorded azithromycin 250 mg tablet 250 mg PO DAILY 4 days #4 tabs 08/13/24 (Zithromax) ibuprofen 600 mg tablet 600 mg PO TID PRN pain #30 tabs 08/13/24 Allergies Allergy/AdvReac Type Severity Reaction Status Date / Time No Known Drug Allergies Allergy Verified 06/08/24 20:25 Opioid HPI Opioid Management Most Recent Opioid Data: Last Pain Scale 5 11/18/23 16:41 11/18/23 Ur Phencyclidine Scrn Negative (NEGATIVE) 06/08/24 22:30 05/20 06/12 Review of Systems ROS Constitutional Reports: fever, chills and fatigue Eyes Denies: change in vision Ears, nose, mouth, and throat Reports: nasal congestion; Denies: throat pain or neck pain Cardiovascular Denies: chest pain or palpitations Respiratory Reports: cough; Denies: shortness of breath Gastrointestinal Denies: abdominal pain, nausea, vomiting or diarrhea Genitourinary Denies: painful urination Musculoskeletal Reports: other (Generalized myalgias reported) Integumentary/Breast Denies: rash or itching Neurological Reports: headache (Mild at times); Denies: numbness in extremities or dizziness Psychiatric Denies: anxiety Endocrine Denies: excessive urination PFSH PFSH Social History Smoking status: Never smoker Little interest or pleasure in doing things: not at all Feeling down, depressed, or hopeless: not at all Exam Narrative Exam Narrative: Nurses notes and vital signs reviewed and patient is not hypoxic. General: The patient appears well and in no apparent distress. Patient is resting comfortably on cart. Skin: Warm, dry, no pallor noted. Head: Normocephalic, atraumatic Neck: Supple, trachea mid-line, no tenderness, no lymphadenopathy Eye: Pupils are equal, round and reactive to light, EOMI Ears, Nose, Mouth, and Throat: Left TM unremarkable right TM with concern of middle ear effusion and dullness no bulging, no auricular or tragal tenderness. No drainage or discharge. Scarring suspected in the right inferior tympanic membrane perforation, oral mucosa is moist, no posterior oropharynx erythema or hypertrophy, uvula is mid-line, postnasal drainage noted Cardiovascular: Patient is tachycardic. Respiratory: Patient is in no distress, no accessory muscle use, lungs are clear to auscultation, no wheezing, rales or rhonchi. Chest Wall: no tenderness. Back: non-tender, no CVA tenderness Musculoskeletal: normal ROM, no tenderness, no swelling GI: Normal bowel sounds, no tenderness to palpation, palpable ventral/umbilical hernia nontender. no masses appreciated. No rebound, guarding, or rigidity noted. Neurological: A&O x4 Psychiatric: Cooperative Constitutional Vital Signs, click to edit/add: Last Vital Signs Temp 99.5 F 08/13/24 17:58 Pulse 102 H 08/13/24 17:58 Resp 18 08/13/24 17:58 BP 171/96 H 08/13/24 17:58 Pulse Ox 96 08/13/24 17:58 O2 Del Method Room Air 08/13/24 16:41 Course Vital Signs Vital signs: Vital Signs Temperature 102 F H 08/13/24 16:41 Pulse Rate 128 H 08/13/24 16:41 Respiratory Rate 20 08/13/24 16:41 Blood Pressure 141/100 H 08/13/24 16:41 Pulse Oximetry 97 08/13/24 16:41 Oxygen Delivery Method Room Air 08/13/24 16:41 Temperature 99.5 F 08/13/24 17:58 Pulse Rate 102 H 08/13/24 17:58 Respiratory Rate 18 08/13/24 17:58 Blood Pressure 171/96 H 08/13/24 17:58 Pulse Oximetry 96 08/13/24 17:58 Oxygen Delivery Method Room Air 08/13/24 16:41 Medical Decision Making [facility] Narrative Medical decision making narrative: Patient presents with 1 week of fever chills and bodyaches his clinical history concerning for seasonal influenza he reports having blood work done with his family doctor last Friday plans to take vitamin D supplementation he denies any skin irritations or lacerations or injury he is without abdominal pain he has what appears to be notable nasal congestion at bedside however he is tachycardic and notably febrile on arrival and with his history of diabetes we will give him Tylenol and IV fluid bolus pending reevaluation. He is not Hypotensive and denies chest pain or having SOB on exertion. CXR with left lower lobe infiltrate: pt has + influenza A , likely viral. given DM and length of symptoms will cover with Antibiotic, but recommend he cont with Tylenol and Motrin. Curb 65 neg. Reviewed laboratory studies with patient. Discussed contact precautions. Patient should be at the end of his influenza illness as he has been sick already for [address] him on azithromycin for his pneumonia pending follow-up to PCP for reevaluation. The patient is to followup with primary care physician in next 2-3 days or to return to the emergency department should any of the signs or symptoms worsen or new symptoms develop. Patient had questions answered. The patient agrees with the following Diagnosis and Treatment plan and the patient will be discharged home. Lab Data Lab results reviewed: Yes I reviewed the patient's lab results Labs: Lab Results 08/13/24 08/13/24 08/13/24 Range/Units 16:43 16:56 17:55 WBC 6.1 (4.0-11.0) 10^3/uL RBC 5.84 (4.70-6.10) 10^6/uL Hgb 17.7 (14.0-18.0) g/dL Hct 47.7 (42.0-54.0) % MCV 81.7 (80.0-94.0) fL MCH 30.3 (25.9-34.0) pg MCHC 37.1 H (29.9-35.2) g/dL RDW 12.5 (11.0-15.0) % Plt Count 118 L (150-450) 10^3/uL MPV 10.7 (9.5-13.5) fL Seg Neuts % (Manual) 74.0 (43.0-75.0) Band Neutrophils % 5.0 (0-5) % Lymphocytes % (Manual) 5.0 L (20.5-60.0) % Monocytes % (Manual) 16.0 H (1.7-12.0) % Eosinophils % (Manual) 0.0 L (0.9-7.0) % Basophils % (Manual) 0.0 L (0.2-2.0) % Neutrophils # (Manual) 4.51 (1.4-6.5) 10^3/uL Band Neutrophils # 0.3 (0.0-0.3) 10^3/uL Lymphocytes # (Manual) 0.30 L (1.20-3.80) 10^3/uL Monocytes # (Manual) 0.97 H (0.30-0.80) 10^3/uL Eosinophils # (Manual) 0.00 (0.00-0.70) 10^3/uL Basophils # (Manual) 0.00 (0.00-0.10) 10^3/uL Sodium 137 (136-145) mmol/L Potassium 3.5 (3.5-5.1) mmol/L Chloride 100 (98-107) mmol/L Carbon Dioxide 23.8 (21.0-32.0) mmol/L Anion Gap 16.7 BUN 9.0 (7.0-18.0) mg/dL Creatinine 0.92 (0.70-1.30) mg/dL Est GFR ( Amer) >60 (>=60 mL/min/1.73m^2) Est GFR (Non-Af Amer) >60 (>=60 mL/min/1.73m^2) BUN/Creatinine Ratio 9.8 Glucose 159 H (74-106) mg/dL Lactate 1.5 (0.4-2.0) mmol/L Calcium 9.2 (8.5-10.1) mg/dL Total Bilirubin 0.7 (0.2-1.0) mg/dL AST 55 H (15-37) U/L ALT 81 H (16-63) U/L Alkaline Phosphatase 78 (46-116) U/L Troponin I High Sens 4.4 (4.0-76.1) pg/mL Total Protein 7.3 (6.4-8.2) g/dL Albumin 3.9 (3.4-5.0) g/dL Globulin 3.4 g/dL Albumin/Globulin Ratio 1.1 TSH & Free T4 Interp 0.765 (0.358-3.740) uIU/mL Urine Color Yellow (YELLOW) Urine Clarity Clear (CLEAR) Urine pH 7.5 (5.0-9.0) Ur Specific Brunson 1.015 (1.005-1.025) Urine Protein Trace (NEG/TRACE) mg/dL Urine Glucose (UA) Negative (NEGATIVE) mg/dL Urine Ketones Negative (NEGATIVE) mg/dL Urine Occult Blood Negative (NEGATIVE) Urine Nitrite Negative (NEGATIVE) Urine Bilirubin Negative (NEGATIVE) Urine Urobilinogen 4.0 A (0.2-1.0) EU/dL Ur Leukocyte Esterase Negative (NEGATIVE) Influenza Type A Ag Positive A Influenza Type B Ag Negative SARS-CoV-2 Ag (CV2AG) Negative (NEGATIVE) Imaging Data Chest x-ray: Attestation: I personally reviewed and interpreted this imaging study as follows: Radiologist's impression: Radiologist noting left lower lobe infiltrate effusion or pneumothorax ECG Data Attestation: I personally reviewed and interpreted this ECG as follows: Interpretation: EKG interpretation: Emergency Department physician interpretation, tachycardia 104 bpm , no ectopy, no ST segment elevation, normal axis. Discharge Plan Discharge Chief Complaint: Weakness Clinical Impression: Influenza A, Left lower lobe pneumonia Patient Disposition: Home, Self-Care Time of Disposition Decision: 18:10 Condition: Good Prescriptions / Home Meds: New ibuprofen 600 mg tablet 600 mg PO TID PRN (Reason: pain) Qty: 30 0RF azithromycin [Zithromax] 250 mg tablet 250 mg PO DAILY 4 Days Qty: 4 0RF Rx Instructions: start on day 2 of therapy No Action diazepam 5 mg tablet 5 mg PO BID PRN (Reason: anxiety) fluticasone propionate 50 mcg/actuation spray,suspension 2 spray INTRANASAL Q12H PRN (Reason: nasal congestion) gabapentin 300 mg capsule 300 mg PO Q8H glipizide 5 mg tablet extended release 24hr 5 mg PO DAILY oxycodone-acetaminophen 7.5-325 mg tablet 1 tab PO Q12H PRN (Reason: pain) promethazine 25 mg tablet 25 mg PO Q6H PRN (Reason: nausea and vomiting) Ozempic 0.25 mg or 0.5 mg (2 mg/3 mL) pen injector 0.5 mg SUBCUT .WEEKLY tizanidine 4 mg tablet 4 mg PO QDAY zolpidem 12.5 mg tablet,ext release multiphase 12.5 mg PO BEDTIME Print Language: Persian Instructions: Influenza (ED), Community Acquired Pneumonia (ED) Additional Instructions: continue with tylenol for fever control as directed. Referrals: SAEID CHAIDEZ [Primary Care Provider] - 1 week
[2024-08-13 17:03] LABS: Influenza Virus A Antigen Positive; Internal Control Within Normal Limits; SARS-CoV-2 Ag NEGATIVE (NEGATIVE)
[2024-08-13 17:04] LABS: Influenza Virus B Antigen Negative; Internal Control Within Normal Limits
[2024-08-13] MEDS: ACETAMINOPHEN 500 MG TABLET 1000 MG PO (17:10)
[2024-08-13] MEDS: 0.9 % SODIUM CHLORIDE 1,000 ML 999 ML IV (17:11)
[2024-08-13] MEDS: KETOROLAC TROMETHAMINE 30 MG/ML VIAL IVP (17:14)
[2024-08-13 17:28] VITALS: BP 138/96; PULSE 107; O2SAT 98
[2024-08-13 17:30] LABS: Hematocrit 47.7 % (42.0-54.0); Hemoglobin 17.7 g/dL (14.0-18.0); Mean Corpuscular HGB Conc 37.1 g/dL (29.9-35.2); Mean Corpuscular Hemoglobin 30.3 pg (25.9-34.0); Mean Corpuscular Volume 81.7 fL (80.0-94.0); Mean Platelet Volume 10.7 fL (9.5-13.5); Platelet Count 118 10^3/uL (150-450); Red Blood Count 5.84 10^6/uL (4.70-6.10); Red Cell Distribution Width 12.5 % (11.0-15.0); White Blood Count 6.1 10^3/uL (4.0-11.0)
[2024-08-13 17:48] LABS: Alanine Aminotransferase 81 U/L (16-63); Albumin Globulin Ratio 1.1; Albumin Level 3.9 g/dL (3.4-5.0); Alkaline Phosphatase 78 U/L (46-116); Anion Gap 16.7; Aspartate Amino Transferase 55 U/L (15-37); BUN Creatinine Ratio 9.8; Bilirubin Total 0.7 mg/dL (0.2-1.0); Calcium 9.2 mg/dL (8.5-10.1); Carbon Dioxide 23.8 mmol/L (21.0-32.0); Chloride 100 mmol/L (98-107); Estimated GFR (African America >60 (>=60 mL/min/1.73m^2); Estimated GFR (Non-African Ame >60 (>=60 mL/min/1.73m^2); Globulin 3.4 g/dL; Glucose 159 mg/dL (74-106); Potassium 3.5 mmol/L (3.5-5.1); Sodium 137 mmol/L (136-145); Total Protein 7.3 g/dL (6.4-8.2); Troponin I High Sensitivity 4.4 pg/mL (4.0-76.1)
[2024-08-13 17:50] LABS: Lactate/Lactic Acid 1.5 mmol/L (0.4-2.0)
[2024-08-13 17:52] LABS: Band Neutrophils Absolute 0.3 10^3/uL (0.0-0.3); Monocytes Absolute Manual 0.97 10^3/uL (0.30-0.80); Segmented Neut Absolute Manual 4.51 10^3/uL (1.4-6.5)
[2024-08-13 17:53] VITALS: PULSE 103; O2SAT 98
[2024-08-13 17:53] LABS: TSH W/ REFLEX FT4 0.765 uIU/mL (0.358-3.740)
[2024-08-13 17:58] VITALS: BP 171/96; PULSE 102; TEMP 37.5; O2SAT 96
[2024-08-13 18:04] LABS: Bilirubin Urine NEGATIVE (NEGATIVE); Blood Urine NEGATIVE (NEGATIVE); Clarity Urine CLEAR (CLEAR); Color Urine YELLOW (YELLOW); Glucose Urine UA NEGATIVE (NEGATIVE); Ketones Urine NEGATIVE (NEGATIVE); Leukocyte Esterase Urine NEGATIVE (NEGATIVE); Nitrite Urine NEGATIVE (NEGATIVE); Protein Urine TRACE mg/dL (NEG/TRACE); Specific Gravity Urine 1.015 (1.005-1.025); pH Urine 7.5 (5.0-9.0)
[2024-08-13 18:06] LABS: Urine Microscopic Indicated NO
[2024-08-13] MEDS: AZITHROMYCIN 250 MG TABLET 500 MG PO (18:19)
== END 2024-08-13 18:22 | disposition home or self-care (01) ==
PROVIDERS: Personal Emergency Response Attendant; Emergency Provider Emergency Medicine; PCP Family Medicine
DX: J10.00 Influenza due to other identified influenza virus with unspecified type of pneumonia (principal); E11.9 Type 2 diabetes mellitus without complications; Z79.85 Long-term (current) use of injectable non-insulin antidiabetic drugs; R50.9 Fever, unspecified; Z79.84 Long term (current) use of oral hypoglycemic drugs
CPT/HCPCS: 36415; 71045; 80053; 81003; 83605; 84443; 84484; 85007; 85027; 87040; 87804; 87811; 93005; 96374; 99285; J1885

== ENCOUNTER 2024-08-20 15:03 | Emergency (ER) | payer BC, SELFPAY ==
--- NOTE | 2024-08-20 15:18 | PC.NURSE ---
[facility]ight patient back and got a set of vitals lung sounds were clear and pulse ox was 99% pulse 78 and told patoient he would have to wait in the waiting room.
--- OUTSIDE RECORDS SUMMARY | 2024-08-20 15:26 | XMS_ITS | CCD ---
Author Organization [facility] Care Team Providers Care Maori Liaison Adviser Name Role Phone DR SAEID PARKER Primary Care Unavailable AUGUSTINA .PARRISH Admitting Unavailable AUGUSTINA ., PARRISH Consulting Unavailable PARRISH ANTON Attending Unavailable CHRISTIN SEBASTIAN Consulting Unavailable NIKKI MCINTOSH Consulting Unavailable DAYNA WHITMAN Attending Unavailable KAYLYNN, SAEID A Referring Unavailable PARKER, SAEID A Primary Care Unavailable DAYNA WHITMAN Attending Unavailable SAEID PARKER Referring Unavailable SAEID PARKER A Primary Care Unavailable Saeid Parker MD Primary Care Provider [phone] Saeid Parker MD Primary Care Provider SAEID PARKER Referring Unavailable KAYLYNN, SAEID A Primary Care [...] Care Unavailable PARKER, SAEID A Referring Unavailable KAYLYNN, SAEID A Primary Care Unavailable Saeid Parker MD Unavailable Medications Current Medications Medication Drug Class(es) [...] 08-07-2024 Chronic Other aftercare (1 source) Other penitentiary (current) drug therapy; 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: [OTH REHABILITATION SPECIALIST CURRENT DRUG THERAPY] Onset: 08-13-2022 Episodic Other aftercare (1 source) 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 hypoglycemic drugs; 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: [REHABILITATION SPECIALIST USE ORAL HYPOGLYCEMIC DX] Onset: 08-13-2022 Episodic [...] 25 ABSOLUTE BASOPHIL 0.1 X10E9/L Normal 0.0-0.2 [facility] Comment on above: Performed By: #### 8 2477-1, CBCA, 298-8, CMP, 1987-09, 83807-1 #### [facility] ([id number]) [address] [facility], [address] [place] [address] Band form neutrophils/100 WBC (Bld) 2.2 % Normal [facility] Comment on above: Performed By: #### 8 2477-1, CBCA, 2988, CMP, 1987-09, #### [facility] ([id number]) [address], [address] [place] [address] Basophils/100 WBC (Bld) 1.1 % Normal [facility] Comment on above: Performed By: #### 8 2477-1, CBCA, 2985-8, CMP, 1987-09, #### [facility] ([id number]) [address], [address] [place] [address] Eosinophils (Bld) [#/Vol] 0.1 10*3/uL Normal 0.0-0.4 [facility] Comment on above: Performed By: #### 8 2476-1, CBCA, 8, CMP, 1987-09, #### [facility] ([id number]) [address], [address] [place] [address] Eosinophils/100 WBC (Bld) 1.1 % Normal [facility] Comment on above: Performed By: #### 8 2476-1, CBCA, 2985-8, CMP, 1987-09, #### [facility] ([id number]) [address] [address] [place] [address] Erythrocyte distribution width (RBC) [Ratio] 13.8 % Normal 11.5-15.0 [facility] Comment on above: Performed By: #### 8 7-1, CBCA, 8, CMP, 1987-09, #### [facility] ([id number]) [address] [address] [place] [address] Hematocrit (Bld) [Volume fraction] 50.9 % High 39-49 [facility] Comment on above: Performed By: #### 8 2477-1, CBCA, 2985-8, CMP, 1987-09, #### [facility] ([id number]) [address], [address] [place] [address] Hemoglobin (Bld) [Mass/Vol] 18.2 g/dL High 13.0-17.0 [facility] Comment on above: Performed By: #### 8 2477-1, CBCA, 298-8, CMP, 1987-09, #### [facility] ([id number]) [address], [address] [place] [address] Lymphocytes (Bld) [#/Vol] 1.4 10*3/uL Normal 1.0-3.5 [facility] Comment on above: Performed By: #### 8 7-1, CBCA, 2985-, CMP, 1987-09, #### [facility] ([id number]) [address], [address] [place] [address] Lymphocytes/100 WBC (Bld) 20.0 % Normal [facility] Comment on above: Performed By: #### 8 2477-1, CBCA, 8, CMP, 1987-09, #### [facility] ([id number]) [address], [address] [place] [address] MCH (RBC) [Entitic mass] 30.5 pg Normal 27-34 [facility] Comment on above: Performed By: #### 8 2477-1, CBCA, 2985-8, CMP, 1987-09, #### [facility] ([id number]) [address], [address] [place] [address] MCHC (RBC) [Mass/Vol] 35.8 g/dL Normal 32-36 [facility] Comment on above: Performed By: #### 8 2477-1, CBCA, 298-8, CMP, 1987-09, #### [facility] ([id number]) [address], [address] [place] [address] MCV (RBC) [Entitic vol] 85 fL Normal 80-100 [facility] Comment on above: Performed By: #### 8 2477-1, CBCA, 298-8, CMP, 1987-09, 43223-4 #### [facility] ([id number]) [address], [address] [place] [address] Monocytes (Bld) [#/Vol] 0.2 10*3/uL Normal 0-0.9 [facility] Comment on above: Performed By: #### 8 2477-1, CBCA, 298-8, CMP, 1987-09, 77612-2 #### [facility] ([id number]) [address], [address] [place] [address] Monocytes/100 WBC (Bld) 3.3 % Normal [facility] Comment on above: Performed By: #### 8 2477-1, CBCA, 2985-8, CMP, 1987-09, #### [facility] ([id number]) [address], [address] [place] [address] Neutrophils (Bld) [#/Vol] 5.3 10*3/uL Normal 1.5-6.6 [facility] Comment on above: Performed By: #### 8 2477-1, CBCA, 298-8, CMP, 1987-09, #### [facility] ([id number]) [address], [address] [place] [address] Platelet mean volume (Bld) [Entitic vol] 9.3 fL Normal 7-12 [facility] Comment on above: Performed By: #### 8 2477-1, CBCA, 298-8, CMP, 1987-09, #### [facility] ([id number]) [address], [address] [place] [address] Platelets (Bld) [#/Vol] 162 10*3/uL Normal 150-450 [facility] Comment on above: Performed By: #### 8 2477-1, CBCA, 2986-8, CMP, 1987-09, 76279-0 #### [facility] ([id number]) [address], [address] [place] [address] RBC COUNT 5.97 X10E12/L High 4.10-5.70 [facility] Comment on above: Performed By: #### 8 2477-1, CBCA, 2986-8, CMP, 1987-09, 21277-2 #### [facility] ([id number]) [address], [address] [place] [address] RBC morphology finding Nom (Bld) NORMAL Normal [facility] Comment on above: Performed By: #### 8 2477-1, CBCA, 2986-8, CMP, 1987-09, 85043-6 #### [facility] ([id number]) [address], [address] [place] [address] SEG NEUTROPHIL 72.3 % Normal [facility] Comment on above: Performed By: #### 8 2477-1, CBCA, 298-8, CMP, 1987-09, 85128-5 #### [facility] ([id number]) [address], [address] [place] [address] WBC (Bld) [#/Vol] 7.0 10*3/uL Normal 4.0-11.0 [facility] Comment on above: Performed By: #### 8 2477-1, CBCA, 2986-8, CMP, 1987-09, 76188-2 #### [facility] ([id number]) [address], [address] [place] [address] COMPREHENSIVE METABOLIC PANE Dc 08-07-2024 Albumin [Mass/Vol] 4.4 g/dL Normal 3.2-5.3 [facility] Comment on above: Performed By: #### 8 2477-1, CBCA, 2986-8, CMP, 1987-09, ####[facility] ([id number])[address], [address], [place] [address] ALP [Catalytic activity/Vol] 63 U/L Normal 39-130 [facility] Comment on above: Performed By: #### 8 2477-1, CBCA, 2986-8, CMP, 1987-09, ####[facility] ([id number])[address], [address], [place] [address] ALT [Catalytic activity/Vol] 50 U/L High 0-40 [facility] Comment on above: Performed By: #### 8 2477-1, CBCA, 2986-8, CMP, 1987-09, ####[facility] ([id number])[address], [address], [place] [address] Anion gap [Moles/Vol] 10 mmol/L Normal 5-15 [facility] Comment on above: Performed By: #### 8 2477-1, CBCA, 2986-8, CMP, 1987-09, ####[facility] ([id number])[address], [address], [place] [address] AST [Catalytic activity/Vol] 27 U/L Normal 0-41 [facility] Comment on above: Performed By: #### 8 2477-1, CBCA, 2986-8, CMP, 1987-09, ####[facility] ([id number])[address], [address], [place] [address] Bilirubin [Mass/Vol] 0.5 mg/dL Normal 0.3-1.2 [facility] Comment on above: Performed By: #### 8 2477-1, CBCA, 2986-8, CMP, 1987-09, ####[facility] ([id number])[address], [address], [place] [address] Calcium [Mass/Vol] 9.3 mg/dL Normal 8.5-10.5 [facility] Comment on above: Performed By: #### 8 2477-1, CBCA, 2986-8, [facility], 1987-09, 62514-6 ####[facility] ([id number])[address] [address], [place] [address] Chloride [Moles/Vol] 103 mmol/L Normal 98-109 [facility] Comment on above: Performed By: #### 8 2477-1, CBCA, 2986-8, [facility], 1987-09, 76517-3 ####[facility] ([id number])[address] [address], [place] [address] CO2 [Moles/Vol] 25 mmol/L Normal 22-32 [facility] Comment on above: Performed By: #### 8 2477-1, CBCA, 2986-8, [facility], 1987-09, 32344-2 ####[facility] ([id number])[address] [address], [place] [address] Creatinine [Mass/Vol] 0.78 mg/dL Normal 0.60-1.30 [facility] Comment on above: Result Comment: METH OD TRACEABLE TO IDMS STANDARD Performed By: #### 8 2477-1, CBCA, 2986-8, [facility], 1987-09, ####[facility] ([id number])[address] [address], [place] [address] eGFR (CKD-EPI) NON-RACE DEPENDENT >90 Normal >59 [facility] Comment on above: Result Comment: Reported eGFR is based on the CKD-EPI 2020 equation that does not use a race coefficient. Performed By: #### 8 2477-1, CBCA, 2986-8, CMP, 1987-09, 05247-0 ####[facility] ([id number])[address] [address] [place] [address] Glucose [Mass/Vol] 164 mg/dL High 65-99 [facility] Comment on above: Performed By: #### 8 2477-1, CBCA, 2986-8, CMP, 1987-09, 12507-6 ####[facility] ([id number])[address], [address], [place] [address] Potassium [Moles/Vol] 3.8 mmol/L Normal 3.5-5.0 [facility] Comment on above: Performed By: #### 8 2477-1, CBCA, 2986-8, CMP, 1987-09, 59107-9 ####[facility] ([id number])[address], [address], [place] [address] Protein [Mass/Vol] 7.4 g/dL Normal 6.0-8.0 [facility] Comment on above: Performed By: #### 8 2477-1, CBCA, 2986-8, CMP, 1987-09, 62035-5 ####[facility] ([id number])[address], [address], [place] [address] Sodium [Moles/Vol] 138 mmol/L Normal 134-146 [facility] Comment on above: Performed By: #### 8 2477-1, CBCA, 2986-8, CMP, 1987-09, 93104-0 ####[facility] ([id number])[address], [address], [place] [address] Urea nitrogen [Mass/Vol] 15 mg/dL Normal 5-23 [facility] Comment on above: Performed By: #### 8 2477-1, CBCA, 2986-8, CMP, 1987-09, 15253-0 ####[facility] ([id number])[address], [address], [place] [address] CRP [Mass/Vol]on 08-07-2024 C REACTIVE PROTEIN 0.2 mg/dL Normal 0.000-0.744 [facility] Comment on above: Performed By: #### 8 2477-1, CBCA, 2986-8, [facility], 1987-09, ####[facility] ([id number])[address], [place] [address] ESR Photometric method (Bld) [Velocity]on 08-07-2024 ESR, ERYTHROCYTE SEDIMENTATION RATE 2 mm/h Normal 0-20 [facility] Comment on above: Performed By: #### 8 2477-1, CBCA, 2986-8, [facility], 1987-09, #### [facility] ([id number]) [address] [facility] [address] [place] [address] Testosterone [Mass/Vol]on TESTOSTERONE 3.33 ng/mL Normal 1.68-7.46 [facility] Comment on above: Performed By: #### 8 2477-1, CBCA, 298-8, [facility], 1987-09, #### [facility] ([id number]) [address] [facility], [address] [place] [address] Vitamin D+Metabolites [Mass/ Vol]on 08-07-2024 VITAMIN D 25 HYD TOT 8.1 ng/mL Low 30-100 [facility] Comment on above: Result Comment: Vitamin D status 25 [place] Vitamin D Deficiency <20 ng/mL Insufficiency 20-29 ng/mL Sufficiency 30-100 ng/mL Toxicity >100 ng/mL NOTE: A pediatric reference range has not been established by the clothes shaker of this kit. The [place] [employer] recommends a Vitamin D level of = or >20ng/mL in infants and children. Performed By: #### 8 2477-1, CBCA, 2986-8, [facility], 1987-09, 85635-0 ####[facility] ([id number])[address], [place] [address] CBC AND AUTO DIFFon 12-20-20 24 ABSOLUTE BASOPHIL 0.1 X10E9/L Normal 0.0-0.2 [facility] Comment on above: Performed By: #### C BCA, 2857-1, CMP, 61120-8 #### [facility] ([id number]) [address], [address] [place] [address] ABSOLUTE NEUTROPHIL 4.8 X10E9/L Normal 1.5-6.6 [facility] Comment on above: Performed By: #### C BCA, 2857-1, CMP, 64543-8 #### [facility] ([id number]) [address], [address] [place] [address] Basophils/100 WBC (Bld) 0.9 % Normal [facility] Comment on above: Performed By: #### Maggie BCA, 2857-1, CMP, 01496-7 #### [facility] ([id number]) [address], [address] [place] [address] Eosinophils (Bld) [#/Vol] 0.3 10*3/uL Normal 0.0-0.4 [facility] Comment on above: Performed By: #### Maggie BCA, 2857-1, CMP, 33786-8 #### [facility] ([id number]) [address], [address] [place] [address] Eosinophils/100 WBC (Bld) 3.6 % Normal [facility] Comment on above: Performed By: #### C BCA, 2857-1, CMP, 85574-3 #### [facility] ([id number]) [address], [address] [place] [address] Erythrocyte distribution width (RBC) [Ratio] 13.3 % Normal 11.5-15.0 [facility] Comment on above: Performed By: #### Maggie BCA, 2857-1, CMP, 13972-6 #### [facility] ([id number]) [address], [address] [place] [address] Hematocrit (Bld) [Volume fraction] 51.4 % High 39-49 [facility] Comment on above: Performed By: #### C BCA, 2857-1, CMP, 71084-8 #### [facility] ([id number]) [address], [facility] [address] [place] [address] Hemoglobin (Bld) [Mass/Vol] 18.1 g/dL High 13.0-17.0 [facility] Comment on above: Performed By: #### C BCA, 2857-1, CMP, 83515-5 #### [facility] ([id number]) [address] [address] [place] [address] Lymphocytes (Bld) [#/Vol] 2.3 10*3/uL Normal 1.0-3.5 [facility] Comment on above: Performed By: #### C BCA, 2857-1, CMP, 00454-1 #### [facility] ([id number]) [address] [address] [place] [address] Lymphocytes/100 WBC (Bld) 29.1 % Normal [facility] Comment on above: Performed By: #### Maggie BCA, 2857-1, CMP, 38648-4 #### [facility] ([id number]) [address], [address] [place] [address] MCH (RBC) [Entitic mass] 29.8 pg Normal 27-34 [facility] Comment on above: Performed By: #### C BCA, 2857-1, CMP, 58151-5 #### [facility] ([id number]) [address], [address] [place] [address] MCHC (RBC) [Mass/Vol] 35.3 g/dL Normal 32-36 [facility] Comment on above: Performed By: #### C BCA, 2857-1, CMP, 48471-3 #### [facility] ([id number]) [address], [address] [place] [address] MCV (RBC) [Entitic vol] 85 fL Normal 80-100 [facility] Comment on above: Performed By: #### Maggie BCA, 2857-1, CMP, 88521-2 #### [facility] ([id number]) [address], [address] [place] [address] Monocytes (Bld) [#/Vol] 0.4 10*3/uL Normal 0-0.9 [facility] Comment on above: Performed By: #### Maggie BCA, 2857-1, CMP, 74747-6 #### [facility] ([id number]) [address] [place] [address] Monocytes/100 WBC (Bld) 4.9 % Normal [facility] Comment on above: Performed By: #### Maggie BCA, 2857-1, CMP, 88370-2 #### [facility] ([id number]) [address], [address] [place] [address] Neutrophils/100 WBC (Bld) 61.5 % Normal [facility] Comment on above: Performed By: #### Maggie BCA, 2857-1, CMP, 30052-5 #### [facility] ([id number]) [address], [address] [place] [address] Platelet mean volume (Bld) [Entitic vol] 8.6 fL Normal 7-12 [facility] Comment on above: Performed By: #### Maggie BCA, 2857-1, CMP, 34613-9 #### [facility] ([id number]) [address], [address] [place] [address] Platelets (Bld) [#/Vol] 230 10*3/uL Normal 150-450 [facility] Comment on above: Performed By: #### C BCA, 2857-1, CMP, 60920-0 #### [facility] ([id number]) [address], [address] [place] [address] RBC COUNT 6.08 X10E12/L High 4.10-5.70 [facility] Comment on above: Performed By: #### C BCA, 2857-1, CMP, 29917-5 #### [facility] ([id number]) [address], [address] [place] [address] WBC (Bld) [#/Vol] 7.8 10*3/uL Normal 4.0-11.0 [facility] Comment on above: Performed By: #### C BCA, 2857-1, CMP, 15831-1 #### [facility] ([id number]) [address], [address] [place] [address] COMPREHENSIVE METABOLIC PANE Dc 05-07-2024 Albumin [Mass/Vol] 4.2 g/dL Normal 3.2-5.3 [facility] Comment on above: Performed By: #### C BCA, 2857-1, CMP, 23229-7 #### [facility] ([id number]) [address], [address] [place] [address] ALP [Catalytic activity/Vol] 66 U/L Normal 39-130 [facility] Comment on above: Performed By: #### C BCA, 2857-1, CMP, 38020-9 #### [facility] ([id number]) [address], [address] [place] [address] ALT [Catalytic activity/Vol] 68 U/L High 0-40 [facility] Comment on above: Performed By: #### C BCA, 2857-1, CMP, 26055-6 #### [facility] ([id number]) [address], [address] [place] [address] Anion gap [Moles/Vol] 10 mmol/L Normal 5-15 [facility] Comment on above: Performed By: #### C BCA, 2857-1, CMP, 35640-1 #### [facility] ([id number]) [address], [address] [place] [address] AST [Catalytic activity/Vol] 36 U/L Normal 0-41 [facility] Comment on above: Performed By: #### C BCA, 2857-1, CMP, 78174-7 #### [facility] ([id number]) [address], [address] [place] [address] Bilirubin [Mass/Vol] 0.7 mg/dL Normal 0.3-1.2 [facility] Comment on above: Performed By: #### C BCA, 2857-1, CMP, 36346-9 #### [facility] ([id number]) [address], [address] [place] [address] Calcium [Mass/Vol] 9.4 mg/dL Normal 8.5-10.5 [facility] Comment on above: Performed By: #### C BCA, 2857-1, CMP, 00477-8 #### [facility] ([id number]) [address], [address] [place] [address] Chloride [Moles/Vol] 103 mmol/L Normal 98-109 [facility] Comment on above: Performed By: #### C BCA, 2857-1, CMP, 43398-9 #### [facility] ([id number]) [address], [address] [place] [address] CO2 [Moles/Vol] 27 mmol/L Normal 22-32 [facility] Comment on above: Performed By: #### C BCA, 2857-1, CMP, 24802-1 #### [facility] ([id number]) [address], [address] [place] [address] Creatinine [Mass/Vol] 0.76 mg/dL Normal 0.60-1.30 [facility] Comment on above: Result Comment: METH OD TRACEABLE TO IDMS STANDARD Performed By: #### C BCA, 2857-1, CMP, 23816-5 #### [facility] ([id number]) [address] [place] [address] eGFR (CKD-EPI) NON-RACE DEPENDENT >90 Normal >59 [facility] Comment on above: Result Comment: Reported eGFR is based on the CKD-EPI 2020 equation that does not use a race coefficient. Performed By: #### C BCA, 2857-1, CMP, 68171-1 #### [facility] ([id number]) [address], [address] [place] [address] Glucose [Mass/Vol] 140 mg/dL High 65-99 [facility] Comment on above: Performed By: #### C BCA, 2857-1, CMP, 21729-9 #### [facility] ([id number]) [address], [address] [place] [address] Potassium [Moles/Vol] 3.8 mmol/L Normal 3.5-5.0 [facility] Comment on above: Performed By: #### C BCA, 2857-1, CMP, 01075-2 #### [facility] ([id number]) [address], [address] [place] [address] Protein [Mass/Vol] 7.2 g/dL Normal 6.0-8.0 [facility] Comment on above: Performed By: #### C BCA, 2857-1, CMP, 00547-5 #### [facility] ([id number]) [address], [address] [place] [address] Sodium [Moles/Vol] 140 mmol/L Normal 134-146 [facility] Comment on above: Performed By: #### C BCA, 2857-1, CMP, 37660-4 #### [facility] ([id number]) [address], [address] [place] [address] Urea nitrogen [Mass/Vol] 10 mg/dL Normal 5-23 [facility] Comment on above: Performed By: #### Maggie RODRIGUEZ, 2857-1, CMP, 77571-6 #### [facility] ([id number]) [address], [facility] [address] [place] [address] Lipid 1996 panelon 4 Cholesterol [Mass/Vol] 163 mg/dL Normal 150-200 [facility] Comment on above: Performed By: #### C MICHAEL, 2857-1, CMP, 09620-1 #### [facility] ([id number]) [address], [facility] [address] [place] [address] Cholesterol in HDL [Mass/Vol] 32 mg/dL Low >39 [facility] Comment on above: Result Comment: HDL <40 mg/dL - High Risk HDL > or = 40mg/dL- Desirable HDL >60 mg/dL - Negative Risk Performed By: #### Maggie RODRIGUEZ, 2857-1, CMP, 50900-3 #### [facility] ([id number]) [address], [address] [place] [address] Cholesterol in LDL [Mass/Vol] 91 mg/dL Normal <130 [facility] Comment on above: Result Comment: LDL <100 mg/dL - Desirable LDL >160 mg/dL - High Risk Performed By: #### Maggie BCA, 2857-1, CMP, 08015-9 #### [facility] ([id number]) [address], [address] [place] [address] Cholesterol in VLDL [Mass/Vol] 40 mg/dL High 0-30 [facility] Comment on above: Performed By: #### C BCA, 2857-1, CMP, 86877-9 #### [facility] ([id number]) [address], [address] [place] [address] CHOLESTEROL:HDL 5.1 High 1.0-5.0 [facility] Comment on above: Performed By: #### C BCA, 2857-1, CMP, 63369-5 #### [facility] ([id number]) [address], [address] [place] [address] Triglyceride [Mass/Vol] 199 mg/dL High 27-150 [facility] Comment on above: Performed By: #### C BCA, 2857-1, CMP, 29887-1 #### [facility] ([id number]) [address], [address] [place] [address] MICROALBUMIN - ALBUMIN:CREAT ININE URINE RATIOon 05-07-2024 ALB/CREAT RATIO 6.8 mg/g creat Normal 0.0-30.0 [facility] Comment on above: Performed By: #### M ALBU #### [facility] ([id number]) [address], [address] [place] [address] Albumin DL <= 20 mg/L (U) [Mass/Vol] 1.4 mg/dL Normal 0.0-1.9 [facility] Comment on above: Performed By: #### M ALBU #### [facility] ([id number]) [address], [address] [place] [address] URINE CREAT 206.05 mg/dL Normal [facility] Comment on above: Performed By: #### M ALBU #### [facility] ([id number]) [address], [address] [place] [address] Prostate specific Ag [Mass/V ol]on 05-07-2024 PSA SCREEN 2.26 ng/mL Normal 0.00-4.00 [facility] Comment on above: Result Comment: The method used for this test is [place] DXI chemiluminescent immunoassay. Values obtained by different assay methods cannot be used interchangeably. Performed By: #### C BCA, 2857-1, CMP, 44539-1 #### [facility] ([id number]) [address] [place] [address], [address] [place] [address] Surgical Pathologyon 024 Surgical Pathology Normal [facility] Comment on above: Result Comment: [facility] [address] [place] [address] Surgical Pathology Consultation Patient Name:FORREST COFFEYB:1970 (Age: 53)Gender:MTaken:4Reported:03/18/2024hysician(s):Mandi Johnson D.O. ([phone])Copy To: Rec. #:[id number]: #[id number] Final Pathologic Diagnosis Distal sigmoid colon polyp, biopsy: Tubular adenoma. Report Electronically Signed Out nxk03/18/2024Ranjith Lopez MD Interpretation performed at [facility], [address] [place] [address], License number: [id number]. Clinical History Screening. 1. Cold snared a polyp in the distal sigmoid colon. Gross Description Received in formalin labeled ALEXX distal sigmoid polyp is a pale-abdalla delicate soft tissue bit, 0.5 cm in greatest dimension. The specimen is filtered and submitted the single cassette. (1,ns,[id number], m4) TB tgb/03/16/2024GR Specimen(s) Received Distal sigmoid colon polyp Fee Codes(s): 1; 58186 Surgical Pathologyon 024 Surgical Pathology Normal [facility] Comment on above: Result Comment: [facility] [address] [place] [address] Surgical Pathology Consultation Patient Name:FORREST COFFEYB:1970 (Age: 53)Gender:MTaken:12/08/2023eported:12/10/2023hysician(s):Mandi Johnson D.O. ([phone])Copy To: Rec. #:[id number]: #[id number] Final Pathologic Diagnosis Transverse colon, polypectomy: Tubular adenoma. Report Electronically Signed Out rg/4Rhusam Peng MD Interpretation performed at [facility], [address] [place] [address], License number: [id number]. Clinical History Screening. Gross Description Received in formalin labeled justyna COFFEY is a pale-abdalla delicate soft tissue fragment, 0.5 cm in greatest dimension. The specimens are filtered and submitted in a single cassette. (1,ns,[id number], m4) TB tgb/12/09/2023O Specimen(s) Received Transverse colon biopsy Fee Codes(s): 1; 25296 ACETONE SERUMon 08-11-2022 ACETONE Negative Normal NEGATIVE [facility] Comment on above: Performed By: #### A CETON #### [facility] [address] [address] [address] Kirsten Harding BNPon 08-11-2022 Natriuretic peptide B (Bld) [Mass/Vol] 15.0 pg/mL Normal <=900.0 [facility] Comment on above: Performed By: #### C MP, BNP, CMADM #### [facility] [address] [address] [address] Kirsten Harding CARDIAC VERITO ADMITon 023 CK [Catalytic activity/Vol] 124 U/L Normal 39-308 [facility] Comment on above: Performed By: #### C MP, BNP, CMADM ####[facility] [address] [address]Dr. Kirsten Harding CK.MB [Mass/Vol] 1.12 ng/mL Normal <=3.60 The [facility] Comment on above: Performed By: #### C MP, BNP, CMADM ####[facility] [address] [id number]. Kirsten Harding HSTROP 5.0 pg/mL Normal 4.0-76.1 [facility] Comment on above: Result Comment: CUT- OFF POINTS HAVE BEEN ESTABLISHED BASED ON THE FOURTH UNIVERSAL DEFINITIONS OF MYOCARDIAL INFARCTION. THE UPPER REFERENCE LIMIT (URL) OF TROPONIN, DEFINED THE 99TH PERCENTILE OF cTnI DISTRIBUTION IN A REFERENCE POPULATION, HAS BEEN CONFIRMED THE DECISION THRESHOLD FOR MS DIAGNOSIS. Performed By: #### C MP, BNP, CMADM ####[facility] [address] [id number] Harding CHRISTEL 28 ng/mL Normal 16-96 [facility] Comment on above: Performed By: #### C MP, BNP, CMADM ####[facility] [address] [address]DrSoniya Harding CBC AUTO DIFFon 08-11-2022 BASO # 0.1 103/ul Normal 0.0-0.1 [facility] Comment on above: Performed By: #### C BC #### [facility] [address] [address] [address] Kirsten Harding Basophils/100 WBC (Bld) 0.6 % Normal 0.2-2.0 [facility] Comment on above: Performed By: #### C BC #### [facility] [address] [place] [address] Dr. Kirsten Harding EO # 0.3 103/ul Normal 0.0-0.7 [facility] Comment on above: Performed By: #### C BC #### [facility] [address] [address] [address] Kirsten Harding Eosinophils/100 WBC (Bld) 2.6 % Normal 0.9-7.0 [facility] Comment on above: Performed By: #### C BC #### [facility] [address] [place] [address] Dr. Kirsten Harding Erythrocyte distribution width (RBC) [Ratio] 12.4 % Normal 11.0-15.0 [facility] Comment on above: Performed By: #### C BC #### [facility] [address] [place] [address] Dr. Kirsten Harding Hematocrit (Bld) [Volume fraction] 50.7 % Normal 42.0-54.0 [facility] Comment on above: Performed By: #### C BC #### [facility] [address] [address] [address] Kirsten Harding Hemoglobin (Bld) [Mass/Vol] 18.6 g/dL Critically high 14.0-18.0 [facility] Comment on above: Performed By: #### C BC #### [facility] [address] [place] [address] Dr. Kirsetn Harding IG # 0.05 10e3/ul Critically high 0.00-0.03 [facility] Comment on above: Performed By: #### C BC #### [facility] [address] [place] [address] Dr. Kirsten Harding IG % 0.5 % Normal 0.0-0.5 [facility] Comment on above: Performed By: #### C BC #### [facility] [address] [place] [address] Dr. Kirsten Harding LYMPH # 3.5 103/ul Normal 1.2-3.8 [facility] Comment on above: Performed By: #### C BC #### [facility] [address] [place] [address] Dr. Kirsten Harding Lymphocytes/100 WBC (Bld) 33.7 % Normal 20.5-60.0 [facility] Comment on above: Performed By: #### C BC #### [facility] [address] [place] [address] Dr. Kirsten Harding MANUAL DIFF REQ NO Normal [facility] Comment on above: Performed By: #### C BC #### [facility] [address] [place] [address] Dr. Kirsten Harding MCH (RBC) [Entitic mass] 29.7 pg Normal 25.9-34.0 [facility] Comment on above: Performed By: #### C BC #### [facility] [address] [address] [address] Kirsten Harding MCHC (RBC) [Mass/Vol] 36.7 g/dL Critically high 29.9-35.2 [facility] Comment on above: Performed By: #### C BC #### [facility] [address] [place] [address] Dr. Kirsten Harding MCV (RBC) [Entitic vol] 81.0 fL Normal 80.0-94.0 [facility] Comment on above: Performed By: #### C BC #### [facility] [address] [place] [address] Dr. Kirsten Harding MONO # 0.7 103/ul Normal 0.3-0.8 [facility] Comment on above: Performed By: #### C BC #### [facility] [address] [place] [address] Dr. Kirsten Harding Monocytes/100 WBC (Bld) 6.4 % Normal 1.7-12.0 [facility] Comment on above: Performed By: #### C BC #### [facility] [address] [place] [address] Dr. Kirsten Harding NEUT # 5.8 103/ul Normal 1.4-6.5 [facility] Comment on above: Performed By: #### C BC #### [facility] [address] [place] [address] Dr. Kirsten Harding Neutrophils/100 WBC (Bld) 56.2 % Normal 43.0-75.0 [facility] Comment on above: Performed By: #### C BC #### [facility] [address] [place] [address] Dr. Kirsten Harding Platelet mean volume (Bld) [Entitic vol] 10.4 fL Normal 9.5-13.5 [facility] Comment on above: Performed By: #### C BC #### [facility] [address] [place] [address] Dr. Kirsten Harding PLT 184 103/ul Normal 150-450 [facility] Comment on above: Performed By: #### C BC #### [facility] [address] [place] [address] Dr. Kirsten Harding RBC 6.26 106/ul Critically high 4.70-6.10 [facility] Comment on above: Performed By: #### C BC #### [facility] [address] [place], [place] [address] Dr. Kirsten Harding WBC 10.3 103/ul Normal 4.0-11.0 [facility] Comment on above: Performed By: #### C BC #### [facility] [id number] Kirsten Harding CT STROKE HEAD WOon [...] CHRISTIN SEBASTIAN Date: 2022-08-11 01:40 Normal [facility] CTA NECK WO W CONon 08-12-19 23 [...] CHRISTIN SEBASTIAN Date: 2022-08-11 02:45 Normal [facility] CULTURE BLOODon 08-11-2022 Microscopic examination of blood, culture Culture Observations: NO GROWTH AT 5 DAYS. Normal [facility] Comment on above: Performed By: #### B LDCX2 ####[facility] [address] [place], [place] [address]CiSoniya Harding Microscopic examination of blood, culture Culture Observations: NO GROWTH AT 5 DAYS. Normal [facility] Comment on above: Performed By: #### B LDCX1 ####[facility] [address] [place], [place] [address]KmSoniya Harding [facility]18 SARS-CoV-2 (COVID-19) RNA ANGELA+probe Ql (Unsp spec) Not detected Normal NOT DETECTED [facility] Comment on above: Result Comment: When [...] for this test is supported by the [place] of [employer] and Human Service's declaration that [...] used). Performed By: #### C VDTB #### [facility] [address] [address] [address] Kirsten Harding LACTATE/LACTIC ACIDon 2022 Lactate [Moles/Vol] 1.4 mmol/L Normal 0.4-2.0 [facility] Comment on above: Performed By: #### L ACT #### [facility] [address] [address] [address] Kirsten Harding Lactate [Moles/Vol] 5.2 mmol/L Critically high 0.4-2.0 [facility] Comment on above: Performed By: #### L ACT ####[facility] [address] [place], [place] [address]HmDr. Kirsetn Harding PH VENOUS BLOODon 08-11-2022 PCO2 VENOUS 33.9 mmHg Critically low 40.0-52.0 [facility] Comment on above: Performed By: #### P HVEN #### [facility] [address] [address] [address] Kirsten Harding pH VENOUS 7.443 Critically high 7.330-7.430 [facility] Comment on above: Performed By: #### P HVEN #### [facility] [address] [address] [address] Kirsten Harding POINT OF CARE GLUCOSEon 07-18 Glucose [Mass/Vol] 203 mg/dL Critically high 74-106 [facility] Comment on above: Performed By: #### P OCGLUC #### [facility] [address] [place] [address] Dr. Kirsten Harding PROF 14(COMP METB)on 023 Albumin [Mass/Vol] 3.9 g/dL Normal 3.4-5.0 [facility] Comment on above: Performed By: #### C MP, BNP, CMADM #### [facility] [address] [place] [address] Dr. Kirsten Harding Albumin/Globulin [Mass ratio] 1.1 {ratio} Normal [facility] Comment on above: Performed By: #### C MP, BNP, CMADM #### [facility] [address] [place] [address] Dr. Kirsten Harding ALP [Catalytic activity/Vol] 77 U/L Normal 46-116 [facility] Comment on above: Performed By: #### C MP, BNP, CMADM #### [facility] [address] [place] [address] Dr. Kirsten Harding ALT [Catalytic activity/Vol] 54 U/L Normal 16-63 [facility] Comment on above: Performed By: #### C MP, BNP, CMADM #### [facility] [address] [place] [address] Dr. Kirsten Harding Anion gap [Moles/Vol] 18.3 mmol/L Normal [facility] Comment on above: Performed By: #### C MP, BNP, CMADM #### [facility] [address] [place] [address] Dr. Kirsten Harding AST [Catalytic activity/Vol] 28 U/L Normal 15-37 [facility] Comment on above: Performed By: #### C MP, BNP, CMADM #### [facility] [address] [place] [address] Dr. Kirsten Harding Bilirubin [Mass/Vol] 0.4 mg/dL Normal 0.2-1.0 [facility] Comment on above: Performed By: #### C MP, BNP, CMADM #### [facility] [address] [address] [address] Kirsten Harding Calcium [Mass/Vol] 8.8 mg/dL Normal 8.5-10.1 [facility] Comment on above: Performed By: #### C MP, BNP, CMADM #### [facility] [address] [address] [address] Kirsten Harding Chloride [Moles/Vol] 103 mmol/L Normal 98-107 [facility] Comment on above: Performed By: #### C MP, BNP, CMADM #### [facility] [address] [place] [address] Dr. Kirsten Harding CO2 [Moles/Vol] 19.9 mmol/L Critically low 21.0-32.0 [facility] Comment on above: Performed By: #### C MP, BNP, CMADM #### [facility] [address] [place] [address] Dr. Kirsten Harding Creatinine [Mass/Vol] 0.95 mg/dL Normal 0.70-1.30 [facility] Comment on above: Performed By: #### C MP, BNP, CMADM #### [facility] [address] [place] [address] Dr. Kirsten Harding EGFR-AF MONEGASQUE >60 Normal >=60 [facility] Comment on above: Performed By: #### C MP, BNP, CMADM #### [facility] [address] [place] [address] Dr. Kirsten Harding EGFR-NON AF MONEGASQUE >60 Normal >=60 [facility] Comment on above: Performed By: #### C MP, BNP, CMADM #### [facility] [address] [place] [address] Dr. Kirsten Harding Globulin (S) [Mass/Vol] 3.5 g/dL Normal [facility] Comment on above: Performed By: #### C MP, BNP, CMADM #### [facility] [address] [address] [address] Kirsten Harding Glucose [Mass/Vol] 212 mg/dL Critically high 74-106 [facility] Comment on above: Performed By: #### C MP, BNP, CMADM #### [facility] [address] [address] [address] Kirsten Harding Potassium [Moles/Vol] 3.2 mmol/L Critically low 3.5-5.1 [facility] Comment on above: Performed By: #### C MP, BNP, CMADM #### [facility] [address] [address] [address] Kirsten Harding Protein [Mass/Vol] 7.4 g/dL Normal 6.4-8.2 [facility] Comment on above: Performed By: #### C MP, BNP, CMADM #### [facility] [address] [address] [address] Kirsten Haridng Sodium [Moles/Vol] 138 mmol/L Normal 136-145 [facility] Comment on above: Performed By: #### C MP, BNP, CMADM #### [facility] [address] [address] [address] Kirsten Harding Urea nitrogen [Mass/Vol] 11.0 mg/dL Normal 7.0-18.0 [facility] Comment on above: Performed By: #### C MP, BNP, CMADM #### [facility] [address] [address] [address] Kirsten Harding Urea nitrogen/Creatinine [Mass ratio] 11.6 mg/mg Normal [facility] Comment on above: Performed By: #### C MP, BNP, CMADM #### [facility] [address] [address] [address] Kirsten Harding PROTIMEon 08-11-2022 INR Coag (PPP) [Relative time] 0.97 {INR} Normal [facility] Comment on above: Performed By: #### P TT, PT ####[facility] [address] [address]Dr. Kirsten Harding INR GUIDELINES SEE BELOW Normal [facility] Comment on above: Result Comment: JAHAIRA RED INR: 2.0 - 3.0 CONDITIONS NOT LISTED BELOW 2.5 - 3.5 FOR PROSTHETIC HEART VALVE REPLACEMENT 2.5 - 3.5 RECURRENT THROMBOSIS Performed By: #### P TT, PT ####[facility] [address] [id number]. Kirsten Harding PT Coag (PPP) [Time] 10.3 s Normal 9.0-11.6 [facility] Comment on above: Performed By: #### P TT, PT ####[facility] [address] [id number]. Kirsten Harding PTTon 08-11-2022 aPTT Coag (Bld) [Time] 23.6 s Normal 22.3-36.2 [facility] Comment on above: Performed By: #### P TT, PT ####[facility] [address] [address]Dr. Kirsten Harding XR CHEST 1 Von 08-11-2022 [...] NIKKI MCINTOSH Date: 2022-08-11 03:04 Normal [facility] Vital Signs Date Time Vital Sign Value Performing Clinician Rubi wilkerson 03-09-2024 10:05-0400 Body height 170.2 cm Pmh 1 [facility] 03-09-2024 10:05-0400 Body mass index (BMI) [Ratio] 33.52 kg/m2 Pmh 1 [facility] 03-09-2024 10:05-0400 Body weight 97.07 kg Pmh 1 [facility] 01-29-2024 14:52-0400 Body height 170.2 cm Dayna Whitman APRN-JANETT Work Phone: [facility] 01-29-2024 14:52-0400 Body mass index (BMI) [Ratio] 34.77 kg/m2 Dayna Whitman [employer] Work Phone: [facility] 01-29-2024 14:52-0400 Body weight 100.7 kg Dayna Whitman [employer] Work Phone: [facility] 01-29-2024 14:52-0400 Diastolic blood pressure 95 mm[Hg] Dayna Whitman [employer] Work Phone: [facility] 01-29-2024 14:52-0400 Heart rate 97 /min Dayna Whitman [employer] Work Phone: [facility] 01-29-2024 14:52-0400 Systolic blood pressure 162 mm[Hg] Dayna Whitman [employer] Work Phone: [facility] 12-03-2023 09:42-0400 Body height 170.2 cm Pmh 1 [facility] 12-03-2023 09:42-0400 Body mass index (BMI) [Ratio] 34.46 kg/m2 Pmh 1 [facility] 12-03-2023 09:42-0400 Body weight 99.79 kg Pmh 1 [facility] 12-02-2023 11:57-0400 Body mass index (BMI) [Ratio] 34.55 kg/m2 Dayna Whitman [employer] Work Phone: [facility] 12-02-2023 11:57-0400 Body weight 100.06 kg Dayna Whitman [employer] Work Phone: [facility] 12-02-2023 11:57-0400 Diastolic blood pressure 96 mm[Hg] Dayna Whitman [employer] Work Phone: [facility] 12-02-2023 11:57-0400 Systolic blood pressure 155 mm[Hg] Dayna Whitman [employer] Work Phone: [facility] Encounters Encounter Date Encounter Type Care Provider Facility Start: 08-13-2024 End: 08-15-2024 Clinisync Result Encounter Faustino VILCHIS Work Phone: [facility] Unsolicited Start: 08-13-2024 End: 08-15-2024 Clinisync Result Encounter Faustino VILCHIS Work Phone: [facility] Unsolicited Start: 08-07-2024 End: 08-07-2024 ambulatory [facility] Start: 05-07-2024 End: 05-07-2024 ambulatory [facility] Start: 05-07-2024 Encounter for genera l adult medical examination without abnormal findings [facility] Start: 03-19-2024 End: 03-19-2024 Telephone encounter Elizabeth Mcnally CMA [facility] General Surgery Start: 03-15-2024 End: 03-15-2024 Evaluation and management of inpatient [facility] Start: 03-09-2024 End: 03-09-2024 ambulatory [facility] Phone Call Provider 1 [facility] Admit Start: 01-29-2024 End: 01-29-2024 Patient encounter procedure Dayna Holm Antonette [employer] Work Phone: [facility] General Surgery Comment on above: Encounter for screen ing colonoscopy (Primary Dx) Start: 01-29-2024 End: 01-29-2024 ambulatory [facility] Start: 12-10-2023 End: 12-10-2023 Telephone encounter Elizabeth Mcnally CMA [facility] General Surgery Start: 12-09-2023 End: 12-09-2023 Evaluation and management of inpatient ALBER Titus SHAWN [facility] Start: 12-08-2023 End: 12-09-2023 Evaluation and management of inpatient [facility] Start: 12-03-2023 End: 12-03-2023 ambulatory [facility] Pat Phone Call Provider 1 [facility] - Pre Admit Start: 12-03-2023 End: 12-03-2023 ambulatory SAEID PARKER [facility] Start: 12-02-2023 End: 12-02-2023 Patient encounter procedure Dayna Whitman [employer] Work Phone: [facility] Comment on above: Encounter for screen ing colonoscopy (Primary Dx) Start: 12-02-2023 End: 12-02-2023 ambulatory DAYNA A ANTONETTE [facility] Start: 11-12-2023 End: 11-17-2023 Telephone encounter Dayna Whitman [employer] Work Phone: [facility] Start: 08-11-2022 End: 08-11-[address] SAEID PARKER Facility:[facility] Procedures Date Procedure Procedure Detail Performing Clinician Start: 08-13-2024 BLOOD CULTURE 2 Faustino VILCHIS Work Phone: Start: 08-13-2024 BLOOD CULTURE 1 Faustino VILCHIS Work Phone: Start: 03-15-2024 Colonoscopy Elizabeth jacobo [employer] TECH Start: 01-29-2024 Follow-up visit Follow-up DAYNA WHITMAN Start: 12-08-2023 Colonoscopy Elizabeth jacobo BIOMED TECH Plan of Treatment Date Care Activity Detail Author Start: 03-15-2029 Screening for malign ant neoplasm of colon Colonoscopy [facility] Start: 12-07-2028 Screening for malign ant neoplasm of colon Colonoscopy [facility] Start: 08-29-2026 DTaP,Tdap and Td Vac cines (2 - Td or Tdap) DTaP,Tdap and Td Vaccines (2 - Td or Tdap) [facility] Start: 03-15-2025 Adult BMI Screening Adult BMI Screen ing [facility] Start: 03-15-2025 Tobacco Screening Tobacco Screening [facility] Start: 02-11-2025 Tobacco Screening Tobacco Screening [facility] Start: 01-28-2025 Adult BMI Screening Adult BMI Screen ing [facility] Start: 01-28-2025 Tobacco Screening Tobacco Screening [facility] Start: 12-07-2024 Adult BMI Screening Adult BMI Screen ing [facility] Start: 12-07-2024 Tobacco Screening Tobacco Screening [facility] Start: 12-02-2024 Adult BMI Screening Adult BMI Screen ing [facility] Start: 12-02-2024 Tobacco Screening Tobacco Screening [facility] Start: 12-01-2024 Adult BMI Screening Adult BMI Screen ing [facility] Start: 12-01-2024 Tobacco Screening Tobacco Screening [facility] Start: 03-15-2024 End: 03-15-2024 Admission to same day surgery center 03/15/2024 8:00 AM EDT - 03/15/2024 8:30 AM EDT Surgery [facility] [address] [place] [phone] [place] [address] [place] [address] [id number] COLONOSCOPY DIAGNOSTIC / SCREENING [88481 (CPT )] [facility] Comment on above: COLONOSCOPY DIAGNOST IC / SCREENING [32529 (CPT )] Start: 03-15-2024 End: 03-15-2024 Anesthesia consultation 03/15/2024 8:00 AM EDT Anesthesia Event [facility] [address] [place] [phone] Brennen Arguello, DO [address] [facility], [place] [id number] [facility] Start: 03-15-2024 End: 03-15-2024 Colonoscopy flx dx w/collj spec when pfrmd COLONOSCOPY DIAGNOSTIC / SCREENING Screen for colon cancer 03/15/2024 8:00 AM EDT [facility] Start: 03-15-2024 Subsequent hospital visit by physician 03/15/2024 8:00 AM EDT Hospital Encounter [facility] [address] [place] [address] Mandi Johnson, DO [address] [place], [place] [phone] [facility] Start: 03-09-2024 End: 03-09-2024 ambulatory 03/09/2024 4:10 PM EDT Support Visit [facility] Admit [address] [place] [phone] [facility] Admit Start: 01-18-2024 Influenza vaccination Influenza Vacc ine [facility] Start: 12-08-2023 End: 12-08-2023 Admission to same day surgery center 12/08/2023 7:30 AM EDT - 12/08/2023 8:00 AM EDT Surgery [facility] [address] [place] [phone] Mandi Johnson, DO [address] [place] [address] COLONOSCOPY DIAGNOSTIC / SCREENING [14387 (CPT )] [facility] Comment on above: COLONOSCOPY DIAGNOST IC / SCREENING [84322 (CPT )] Start: 12-08-2023 End: 12-08-2023 Colonoscopy flx dx w/collj spec when pfrmd COLONOSCOPY DIAGNOSTIC / SCREENING Screen for colon cancer 12/08/2023 7:30 AM EDT [facility] Start: 12-08-2023 Subsequent hospital visit by physician 12/08/2023 7:30 AM EDT Hospital Encounter [facility] Surgery [address] [place] [id number] Mandi Johnson, DO [address], [place] [id number] [facility] Start: 12-03-2023 End: 12-03-2023 ambulatory 12/03/2023 2:20 PM EDT Support Visit [facility] Admit [address] [place] [address] [facility] - Pre Admit Start: 11-28-2023 End: 11-28-2023 Patient encounter procedure 11/28/2023 9:30 AM EDT Office Visit [facility] [address] [place] [id number] Dayna Whitman, MACHINE CEMENTER-STATE PILOT [address] [facility] [place] [address] [facility] Start: 11-24-2019 Administration of varicella zoster vaccine Zoster (Shingles) Vaccine (1 of 2) [facility] Start: 11-24-1987 Adult BMI Follow Up Plan Adult BMI Follow Up Plan [facility] Start: 11-24-1987 Adult BMI Screening Adult BMI Screen ing [facility] Start: 1981 Depression Screening Depression Scre ening [facility] Start: 1981 Tobacco Screening Tobacco Screening [facility] BLOOD CULTURE 1 BLOOD CULTURE 1 Lab Routine 08/13/2024 5:09 PM EDT [facility] Work Phone: BLOOD CULTURE 2 BLOOD CULTURE 2 Lab Routine 08/13/2024 5:13 PM EDT [facility] End: 12-01-2024 Colonoscopy Colonoscopy GI Routine Encounter for screening colonoscopy 1 Occurrences starting 12/02/2023 until 12/01/2024 [facility] Work Phone: Comment on above: 1 Occurrences starti ng 12/02/2023 until 12/01/2024 Payers Date Payer Category Payer [facility] BCBS [id number] 2012 [employer] [place] [employer] - [facility] Member Subscriber Plan / Payer (Effective 2012-Present) Name: Vito Coffey Relation to Subscriber: Self Name: Vito Coffey Payer ID: [id number] ([facility]) Type: Not on file Address: [address] [place] [id number] 2012 Unknown ANTHONEYDA TORRES SS (O) [id number] 2012-Present [phone] [address] [place] [id number] 1969 Unknown [id number] [id number]. 2.593 1969 Unknown [id number] 2.840.1.865741.3.579. 2.1285 1969 Unknown [id number] 2.840.1.014718.3.579. 2.1285 1969 Unknown [id number] 2.840.1.566562.3.579. 2.1285 1969 Unknown [id number] 2.16840.1.708255.3.579. 2.1285 1969 Unknown [id number] 2.16840.1.635504.3.579. 2.1285 1969 Unknown [id number] 2.16840.1.238046.3.579. 2.1285 1969 Unknown [id number] 2.16840.1.083392.3.579. 2.12851970 Unknown [id number] 2.16.840.1.552592.3.579. 2.1286 1969 Unknown [id number] 2.16.840.1.251855.3.579. 2.1286 1969 Unknown [id number] 2.16.840.1.920113.3.579. 2.1286 1969 Unknown [id number] 2.16.840.1.463779.3.579. 2.1286 1959 Unknown [id number] Social History Date Type Detail Facility Start: 09-10-2019 Tobacco smoking stat [facility] Never smoked tobacco [facility] Start: 09-10-2019 Tobacco use and exposure Smokeless tobacco non-user [facility] Start: 09-10-2019 Alcoholic beverage intake Ex-drinker (finding) [facility] Start: 09-10-2019 End: 06-29-2020 History of Social function [facility] Start: 09-10-2019 End: 06-29-2020 Tobacco use panel [facility] Childcare Unknown [facility] Start: 1970 Sex assigned at Not on file [facility] Start: 12-02-2023 End: 03-16-2024 Alcoholic beverage intake Current drinker of alcohol (finding) [facility] Start: 12-02-2023 Alcohol Comment weekends [facility] Start: 12-22-2014 Sex Male (finding) [facility] Tobacco smoking stat [facility] Tobacco smoking consumption unknown [facility] Start: 07-31-2022 Gender identity Identifies as male gender (finding) [facility] Clinical Notes 11-12-2023 to 03-19-2024 Telephone Encounter - Elizabeth Mcnally, [facility] - 03/19/2024 11:50 AM EDTTelephone Encounter - Elizabeth Mcnally, [facility] - 03/19/2024 11:50 AM EDTTelephone Encounter - Elizabeth Mcnally, [facility] - 03/19/2024 11:50 AM EDT Note Date & Type Note Facility 03-19-2024 Miscellaneous Notes ----- Message from Dr. Mandi Johnson, sent at 03/18/2024 4:31 PM EDT ----- Please let pt. Know that polyp was precancerous but benign and I recommend surveillance scope in 5 years unless problems. ThanksDr. Plascencia Spoke with patient regarding pathology results. Patient verbally understood with no further questions. Recall to be put in chart. documented in this encounter [facility] [employer] 03-19-2024 Telephone encounter Note ----- Message from Dr. Mandi Johnson DO sent at 03/18/2024 4:31 PM EDT ----- Please let pt. Know that polyp was precancerous but benign and I recommend surveillance scope in 5 years unless problems. Thanks, Dr. Plascencia [facility] [employer] [facility] 03-19-2024 Telephone encounter Note Spoke with patient regarding pathology results. Patient verbally understood with no further questions. Recall to be put in chart. [facility] [employer] [facility] 03-09-2024 Nurse Note Preoperative Education Checklist- General Surgery date: 03/15/24 Surgery time: 8a Arrival time: 610a 1. Bring a photo ID and your insurance card with you the day of surgery. You will check in at the main lobby of the [facility]- registration desk is straight ahead as soon as you walk in. Tell them you are here for surgery. 2. If you have a Living Will/Durable Power of Athletic Shoe Designer for Health Care that is not on [...] after you have bathed. 5. NO nail brazilian/acrylic on at least one finger. If you are having a hand, wrist or foot surgery then all nail brazilian and artificial/acrylic nails must be removed from [...] please call the Preadmission Testing office at [phone], Mon.-Fri. 7 a.m.-3 p.m. Leave a voicemail [...] Stop taking 0 days prior to procedure [facility] [employer] [facility] 03-09-2024 Miscellaneous Notes Preoperative Education Checklist- General Surgery date: 03/15/24 Surgery time: 8a Arrival time: 610a 1. Bring a photo ID and your insurance card with you the day of surgery. You will check in at the main lobby of the [facility]- registration desk is straight ahead as soon as you walk in. Tell them you are here for surgery. 2. If you have a Living Will/Durable Power of Athletic Shoe Designer for Health Care that is not on [...] after you have bathed. 5. NO nail brazilian/acrylic on at least one finger. If you are having a hand, wrist or foot surgery then all nail brazilian and artificial/acrylic nails must be removed from [...] please call the Preadmission Testing office at [phone], Mon.-Fri. 7 a.m.-3 p.m. Leave a voicemail [...] prior to procedure documented in this encounter [facility] [employer] 01-29-2024 History of Presen t illness Narrative Images from the original note were not included. Chief Complaint: Colon cancer screening History of Present Illness Vito Coffey is a 53 y.o. male who [...] Past Medical History: Diagnosis Date Bowel obstruction ([facility]) Diabetes mellitus type 2, controlled (CMS-HCC) Diverticulitis of colon Fractures Hypertension Insomnia Visual impairment Past Surgical History: Procedure Laterality Date BACK SURGERY L4-5, fusion COLON SURGERY 2018 bowel resection with colostomy COLONOSCOPY COLONOSCOPY DIAGNOSTIC / SCREENING N/A 12/08/2023 Performed by Mandi Johnson DO at [facility] COLOSTOMY CLOSURE HAND SURGERY Left No Known [...] patient/family/caregiver Referring and communicating with other health career counselor Encounter for screening colonoscopy [Z12.11] ABDULKADIR VELARDE [facility] General Surgery [place] This note was created with the assistance of a speech recognition program. While intending to generate a timely document that accurately reflects the content of the visit, no guarantee can be provided that every grammatical or spelling mistake has been or will be identified or corrected. Thank you for your understanding. ABDULKADIR Velarde 01/29/24 1530 documented in this encounter [facility] 12-10-2023 Miscellaneous Notes ----- Message from Dr. Mandi Johnson DO sent at 12/10/2023 12:51 PM EDT ----- Please let patient know he had a precancerous tubular adenoma and I recommend surveillance colonoscopy in 5 years unless he has problems. Thanks, Dr. Stephens Spoke with patient regarding pathology results. Patient verbally understood with no further questions. Recall to be put in chart. documented in this encounter [facility] 12-10-2023 Telephone encounter Note ----- Message from Dr. Mandi Johnson DO sent at 12/10/2023 12:51 PM EDT ----- Please let patient know he had a precancerous tubular adenoma and I recommend surveillance colonoscopy in 5 years unless he has problems. Thanks, Dr. Stephens [facility] 12-10-2023 Telephone encounter Note Spoke with patient regarding pathology results. Patient verbally understood with no further questions. Recall to be put in chart. [facility] 12-03-2023 Nurse Note Preoperative Education Checklist- General Surgery date: 12/08/23 Surgery time: 730a Arrival time: 610a 1. Bring a photo ID and your insurance card with you the day of surgery. You will check in at the main lobby of the [facility]- registration desk is straight ahead as soon as you walk in. Tell them you are here for surgery. 2. If you have a Living Will/Durable Power of Athletic Shoe Designer for Health Care that is not on [...] after you have bathed. 5. NO nail brazilian/acrylic on at least one finger. If you are having a hand, wrist or foot surgery then all nail brazilian and artificial/acrylic nails must be removed from [...] please call the Preadmission Testing office at [phone], Mon.-Fri. 7 a.m.-3 p.m. Leave a voicemail [...] Stop taking 0 days prior to procedure [facility] 12-03-2023 Miscellaneous Notes Preoperative Education Checklist- General Surgery date: 12/08/23 Surgery time: 730a Arrival time: 610a 1. Bring a photo ID and your insurance card with you the day of surgery. You will check in at the main lobby of the [facility]- registration desk is straight ahead as soon as you walk in. Tell them you are here for surgery. 2. If you have a Living Will/Durable Power of Athletic Shoe Designer for Health Care that is not on [...] after you have bathed. 5. NO nail brazilian/acrylic on at least one finger. If you are having a hand, wrist or foot surgery then all nail brazilian and artificial/acrylic nails must be removed from [...] please call the Preadmission Testing office at [phone], Mon.-Fri. 7 a.m.-3 p.m. Leave a voicemail [...] prior to procedure [facility]23 History of Presen t illness Narrative Images from the original note were not included. Chief Complaint: Colon cancer screening History of Present Illness Vito Coffey is a 53 y.o. male who presents to the office for colon cancer screening. His last colonoscopy was 10 years ago. He is status post Ron's procedure for diverticulitis and colostomy reversal in 2014. He denies diarrhea, constipation, abdominal pain, melena, [...] Past Medical History: Diagnosis Date Bowel obstruction ([facility]) Diabetes mellitus type 2, controlled ([facility]) Diverticulitis of colon Past Surgical History: Procedure [...] patient/family/caregiver Referring and communicating with other health career counselor Encounter for screening colonoscopy [Z12.11] DAYNA WHITMAN APRN-STATE PILOT [facility] [place] This note was created with the assistance of a speech recognition program. While intending to generate a timely document that accurately reflects the content of the visit, no guarantee can be provided that every grammatical or spelling mistake has been or will be identified or corrected. Thank you for your understanding. ABDULKADIR Velarde 12/02/23 1401 documented in this encounter [facility] 11-12-2023 Miscellaneous Notes Called Vito regarding the screening colonoscopy referral that our office received from Dr Parker, was unable to leave a message as the voicemail has not been set up. Called Vito regarding the referral that our office received, spoke to /Jacquelyn she said he was not home and to call his cell# [phone] or his work cell# [phone]. Called Vito at [phone] and voicemail has not been set up yet. Called Vito at [phone] and left message on voicemail to call the office back. Vito called the office back and we scheduled him an appointment on 11/28/2023. documented in this encounter [facility] 11-12-2023 Telephone encounter Note Called Vito regarding the screening colonoscopy referral that our office received from Dr Parker, was unable to leave a message as the voicemail has not been set up. [facility] 11-12-2023 Telephone encounter Note Called Vito regarding the referral that our office received, spoke to /Jacquelyn she said he was not home and to call his cell# [phone] or his work cell# [phone]. Called Vito at [phone] and voicemail has not been set up yet. Called Vito at [phone] and left message on voicemail to call the office back. [facility] Telephone encounter Note Vito called the office back and we scheduled him an appointment on 11/28/2023. [facility] Evaluation note Diagnosis Encounter for screening colonoscopy- Primary Screen for colon cancer Special screening for malignant neoplasms, colon documented in this encounter [facility] [employer] System[facility] note* Diagnosis Encounter for screening colonoscopy- Primary Screen for colon cancer Special screening for malignant neoplasms, colon documented in this encounter [facility]ructionsNot on filedocumented in this encounter [facility] SystemInstructionsNot on filedocumented in this encounter [facility] SystemInstructionsNot on filedocumented in this encounter [facility] on filedocumented in this encounter [facility] System[facility]ructionsNot on filedocumented in this encounter [facility] [employer] [facility] Summary Purpose Family History No Family [...] DATE CREATED AUTHOR AUTHOR'S ORGANIZ ATION 01/31/2024 [facility] DATE CREATED AUTHOR AUTHOR'S ORGANIZ ATION 08/08/2024 [facility] Care Teams (unrecognized sec tion and content) Maori Liaison Adviser Relationship Specialty Start Date End Date Saeid Parker MD [address] [place] [phone] PCP - General Family Medicine 12/20/16 Maori Liaison Adviser Relationship Specialty Start Date End Date Saeid Parker MD [address] [place] [phone] PCP - General Family Medicine 12/20/16 Maori Liaison Adviser Relationship Specialty Start Date End Date Saeid Parker MD [address] [place] [address] PCP - General Family Medicine 12/20/16 Maori Liaison Adviser Relationship Specialty Start Date End Date Saeid Parker MD [address] [place] [address] PCP - General Family Medicine 12/20/16 Maori Liaison Adviser Relationship Specialty Start Date End Date Saeid Parker MD [address] [place] [address] PCP - General Family Medicine 12/20/16 Maori Liaison Adviser Relationship Specialty Start Date End Date Saeid Parker MD [address] [place] [address] PCP - General Family Medicine 12/20/16 Maori Liaison Adviser Relationship Specialty Start Date End Date Saeid Parker MD [address] [place] [address] PCP - General Family Medicine 12/20/16 Maori Liaison Adviser Relationship Specialty Start Date End Date Saeid Parker MD [address] [place] [address] PCP - External PCP Family Medicine 10/26/22 Reason for Visit (unrecogniz ed section and [...] BE BASED ON THE PRIMARY CLINICAL RECORDS. [employer] [facility]. provides no warranty or guarantee of the accuracy or completeness of information in this document.
== END 2024-08-20 16:24 | disposition left against medical advice (07) ==
LOC: ER 15:07
PROVIDERS: Emergency Provider Emergency Medicine; PCP Family Medicine
DX: Z53.21 Procedure and treatment not carried out due to patient leaving prior to being seen by health care provider (principal)